=== PATIENT | male | born 1945 | race American Indian/Alaskan Native ===

== ENCOUNTER 2016-07-19 08:31 | Inpatient (IN) | payer MEDICARE ==
[2016-07-19] MEDS ORDERED: ATIVAN IV ONE (09:28)
[2016-07-19] MEDS ORDERED: KEPPRA 1,000 MG/NS 0.75% 100ML 1,000 MG/100 ML BAG IV ONE (09:30)
[2016-07-19 09:47] LABS: Basophils % (Auto) 0.6 % (0.0-1.8); Eosinophils % (Auto) 0.8 % (0.0-4.3); Hematocrit 49.5 % (35.5-45.6); Hemoglobin 15.9 gm/dl (11.8-15.2); Mean Corpuscular HGB Conc 32 % (32-34); Mean Corpuscular Hemoglobin 29 pg (28-32); Mean Corpuscular Volume 91 fl (84-94); Platelet Count 130 K/mm3 (140-440); Red Blood Count 5.43 M/mm3 (3.65-5.03); Red Cell Distribution Width 18.9 % (13.2-15.2); White Blood Count 7.2 K/mm3 (4.5-11.0)
[2016-07-19 09:50] LABS: Alanine Aminotransferase 94 units/L (7-56); Albumin 4.2 g/dL (3.9-5); Alkaline Phosphatase 96 units/L (35-129); Bilirubin,Total 0.9 mg/dL (0.1-1.2); Total Protein 8.3 g/dL (6.3-8.2)
[2016-07-19 09:57] LABS: INR 0.99 (0.87-1.13)
[2016-07-19 09:58] LABS: Partial Thromboplastin Time 24.7 Sec. (24.2-36.6)
--- NOTE | 2016-07-19 09:59 | Cat Scan Report ---
CT HEAD WITHOUT CONTRAST: 07/19/16 CLINICAL: Seizure.. TECHNIQUE: 5-mm and 2.5-mm noncontrast scans. COMPARISON:04/22/16 FINDINGS: The ventricles and sulci are slightly large for age but are unchanged compared to the prior exam. No abnormal density. No mass or mass effect. No hemorrhage, edema or extra-axial collection. The sinuses are clear. Normal orbits and soft tissues. The calvarium and skull base are intact. IMPRESSION: Mild global cortical atrophy. No acute change. Resolution of bilateral maxillary sinusitis since the previous exam.
[2016-07-19] MEDS ORDERED: VITAMIN B-1 PO SCH (10:00)
[2016-07-19 10:06] LABS: Anion Gap 27 mmol/L; Blood Urea Nitrogen 11 mg/dL (9-20); Calcium 9.7 mg/dL (8.4-10.2); Carbon Dioxide 18 mmol/L (22-30); Chloride 99.5 mmol/L (98-107); Glucose 77 mg/dL (75-100); Potassium 4.1 mmol/L (3.6-5.0); Sodium 140 mmol/L (137-145)
--- NOTE | 2016-07-19 10:26 | XRay Report ---
AP CHEST : 07/19/16 08:31:00 CLINICAL: Hypertension. COMPARISON:02/26/16 FINDINGS: Normal heart and pulmonary vessels. The lungs are hyperexpanded and hyperlucent. The bones and soft tissues are unremarkable. IMPRESSION: COPD. No CHF or pneumonia.
[2016-07-19] MEDS ORDERED: VITAMIN B-1 100 MG, FOLVITE 1 MG, INFUVITE 10 ML in NACL 0.9% 1000 ML 1,000 ML IV ONE ×2 (11:00→16:55)
--- NOTE | 2016-07-19 11:45 | Emergency Department Report ---
ED General Adult HPI - General Chief complaint: Seizure Stated complaint: SEIZURE Source: patient, EMS Mode of arrival: Ambulatory Limitations: No Limitations - History of Present Illness Initial comments: The patient had 2 seizures prior to arrival today. He denies any injury to his tongue head neck or elsewhere. Indeed he states he has never injured his head. He admits that he stopped drinking 4-5 days ago. He also admits that he is tremulous. He further states that he has had seizures in the past due to discontinuance of alcohol. He also is on Keppra. It is uncertain as to the nature of his seizure sorter. He is taking Xarelto for atrial fibrillation. He would appear to be in extreme fall risk for anticoagulation therapy. In any case he presents to the emergency department for evaluation. He is planning of any symptoms at the time of my encounter. -: Gradual Severity scale (0 -10): 0 Improves with: none Worsens with: none Associated Symptoms: denies other symptoms - Related Data Home Medications Medication Instructions Recorded Confirmed Last Taken Folic Acid [Folvite] 1 mg PO QDAY 12/25/14 07/19/16 05/27/15 Thiamine 1 mg PO DAILY 12/23/15 07/19/16 Unknown levETIRAcetam [Keppra TAB] 500 mg PO BID 07/19/16 07/19/16 Unknown Previous Rx's Medication Instructions Recorded Last Taken Type Ferrous Fumarate [Hemocyte] 324 mg PO BID #60 tablet 12/29/15 Unknown Rx Flecainide [Tambocor] 50 mg PO Q12HR 30 Days 02/27/16 Unknown Rx Metoprolol Xl [Metoprolol 50 mg PO QDAY 30 Days 02/27/16 Unknown Rx SUCCINATE ER TAB] Rivaroxaban [Xarelto] 20 mg PO QDDIAB #30 tablet 02/27/16 Unknown Rx Allergies Allergy/AdvReac Type Severity Reaction Status Date / Time No Known Allergies Allergy Verified 05/28/15 10:43 ED Review of Systems ROS: Stated complaint: SEIZURE Other details as noted in HPI Constitutional: denies: chills, fever Eyes: denies: eye pain, eye discharge, vision change ENT: denies: ear pain, throat pain Respiratory: denies: cough, shortness of breath, wheezing Cardiovascular: denies: chest pain, palpitations Endocrine: no symptoms reported Gastrointestinal: denies: abdominal pain, nausea, diarrhea Genitourinary: denies: urgency, dysuria Musculoskeletal: denies: back pain, joint swelling, arthralgia Skin: denies: rash, lesions Neurological: as per HPI. denies: headache, weakness, paresthesias Psychiatric: other (somewhat tremulous). denies: anxiety, depression Hematological/Lymphatic: denies: easy bleeding, easy bruising ED Past Medical Hx - Past Medical History Previous Medical History?: Yes Hx Hypertension: Yes Hx Liver Disease: Yes Hx Arthritis: Yes Hx Seizures: Yes Hx Kidney Stones: Yes Hx Asthma: Yes Hx COPD: Yes Hx HIV: No Additional medical history: enlarged heart. - Surgical History Past Surgical History?: Yes Hx Appendectomy: Yes - Social History Smoking Status: Current Every Day Smoker Substance Use Type: Alcohol, Marijuana - Medications Home Medications: Home Medications Medication Instructions Recorded Confirmed Last Taken Type Folic Acid [Folvite] 1 mg PO QDAY 12/25/14 07/19/16 05/27/15 History Thiamine 1 mg PO DAILY 12/23/15 07/19/16 Unknown History Ferrous Fumarate [Hemocyte] 324 mg PO BID #60 tablet 12/29/15 07/19/16 Unknown Rx Flecainide [Tambocor] 50 mg PO Q12HR 30 Days 02/27/16 07/19/16 Unknown Rx Metoprolol Xl [Metoprolol 50 mg PO QDAY 30 Days 02/27/16 07/19/16 Unknown Rx SUCCINATE ER TAB] Rivaroxaban [Xarelto] 20 mg PO QDDIAB #30 tablet 02/27/16 07/19/16 Unknown Rx levETIRAcetam [Keppra TAB] 500 mg PO BID 07/19/16 07/19/16 Unknown History ED Physical Exam - General Limitations: No Limitations General appearance: alert, in no apparent distress - Head Head exam: Present: normocephalic, other (healed old scalp lacerations noted) - Eye Eye exam: Present: normal appearance, PERRL, EOMI. Absent: scleral icterus - ENT ENT exam: Present: mucous membranes moist, other (stung injury and tongue fasciculations noted) - Neck Neck exam: Present: normal inspection. Absent: tenderness, meningismus - Respiratory Respiratory exam: Present: normal lung sounds bilaterally. Absent: respiratory distress - Cardiovascular Cardiovascular Exam: Present: regular rate, normal rhythm. Absent: systolic murmur, diastolic murmur, rubs, gallop - GI/Abdominal GI/Abdominal exam: Present: soft, normal bowel sounds. Absent: distended, tenderness, guarding, rebound, rigid - Rectal Rectal exam: Present: deferred - Extremities Exam Extremities exam: Present: normal inspection - Back Exam Back exam: Present: normal inspection - Neurological Exam Neurological exam: Present: alert, oriented X3, CN II-XII intact. Absent: motor sensory deficit - Psychiatric Psychiatric exam: Present: normal affect, anxious - Skin Skin exam: Present: warm, dry, intact, normal color. Absent: rash ED Course Vital Signs 07/19/16 07/19/16 07/19/16 08:31 08:41 08:43 Temperature 98.6 F Pulse Rate 91 H 88 Respiratory 13 13 18 Rate Blood Pressure 161/95 165/95 Blood Pressure 165/95 [Left] O2 Sat by Pulse 98 99 Oximetry 07/19/16 07/19/16 07/19/16 08:51 09:01 09:10 Temperature Pulse Rate 88 90 Respiratory 13 12 20 Rate Blood Pressure 161/95 161/95 Blood Pressure [Left] O2 Sat by Pulse 98 98 97 Oximetry 07/19/16 07/19/16 07/19/16 09:11 09:21 09:31 Temperature Pulse Rate 93 H 88 85 Respiratory 10 L 12 14 Rate Blood Pressure 161/95 161/95 161/95 Blood Pressure [Left] O2 Sat by Pulse 96 99 99 Oximetry 07/19/16 07/19/16 07/19/16 09:45 09:51 10:00 Temperature Pulse Rate 80 83 78 Respiratory 17 16 16 Rate Blood Pressure 161/95 161/95 162/86 Blood Pressure [Left] O2 Sat by Pulse 98 98 96 Oximetry 07/19/16 07/19/16 10:11 10:21 Temperature Pulse Rate 77 78 Respiratory 16 14 Rate Blood Pressure 162/86 162/86 Blood Pressure [Left] O2 Sat by Pulse 97 98 Oximetry - Reevaluation(s) Reevaluation #1: She was given Ativan and Keppra. CT of his head was normal. Banana bag was issued. Case was discussed with Dr. Montgomery who will be admitting him to the hospitalist service. 07/19/16 11:45 Reevaluation #2: Judging from the patient's coagulation profile I strongly doubt that he is compliant with his Xarelto. 07/19/16 11:46 07/19/16 17:09 The case was discussed with Dr. Montgomery who is admitted the patient to the hospitalist service. He is in normal sinus rhythm. I don't think it's very judicious to continue this patient's anticoagulation with his multiple risk factors for head trauma. ED Medical Decision Making - Lab Data Result diagrams: 07/19/16 08:52 07/19/16 08:53 Laboratory Results - last 24 hr 07/19/16 07/19/16 07/19/16 08:52 08:53 08:54 WBC 7.2 RBC 5.43 H Hgb 15.9 H Hct 49.5 H MCV 91 MCH 29 MCHC 32 RDW 18.9 H Plt Count 130 L Lymph % (Auto) 8.3 L Garrett % (Auto) 4.4 Eos % (Auto) 0.8 Baso % (Auto) 0.6 Lymph # 0.6 L Garrett # 0.3 Eos # 0.1 Baso # 0.0 Seg Neutrophils % 85.9 H Seg Neutrophils # 6.2 PT 13.0 INR 0.99 APTT 24.7 Sodium 140 Potassium 4.1 Chloride 99.5 Carbon Dioxide 18 L Anion Gap 27 BUN 11 Creatinine 1.0 Estimated GFR > 60 BUN/Creatinine Ratio 11.00 Glucose 77 Calcium 9.7 Magnesium Total Bilirubin 0.9 AST 180 H ALT 94 H Alkaline Phosphatase 96 Ammonia Total Protein 8.3 H Albumin 4.2 Albumin/Globulin Ratio 1.0 Plasma/Serum Alcohol 07/19/16 07/19/16 07/19/16 09:09 09:17 Unknown WBC RBC Hgb Hct MCV MCH MCHC RDW Plt Count Lymph % (Auto) Garrett % (Auto) Eos % (Auto) Baso % (Auto) Lymph # Garrett # Eos # Baso # Seg Neutrophils % Seg Neutrophils # PT INR APTT Sodium Potassium Chloride Carbon Dioxide Anion Gap BUN Creatinine Estimated GFR BUN/Creatinine Ratio Glucose Calcium Magnesium 2.0 Total Bilirubin AST ALT Alkaline Phosphatase Ammonia 42.0 Total Protein Albumin Albumin/Globulin Ratio Plasma/Serum Alcohol 0.02 - EKG Data -: EKG Interpreted by Ak EKG shows normal: sinus rhythm, axis, intervals, QRS complexes, ST-T waves Rate: normal - EKG Data Interpretation: normal EKG - Radiology Data Radiology results: report reviewed interpreted by me: CT the head showed no acute process. Chest x-ray showed no acute process. Critical care attestation.: If time is entered above; I have spent that time in minutes in the direct care of this critically ill patient, excluding procedure time. ED Disposition Clinical Impression: Chronic alcoholic liver disease Alcohol withdrawal Qualifiers: Complication of substance-induced condition: with unspecified complication Qualified Code(s): F10.239 - Alcohol dependence with withdrawal, unspecified Withdrawal seizures Qualifiers: Complication of substance-induced condition: with unspecified complication Qualified Code(s): F19.239 - Other psychoactive substance dependence with withdrawal, unspecified Disposition: OP ADMITTED IP TO THIS HOSP Is pt being admited?: Yes Does the pt Need Aspirin: Yes Condition: Stable Time of Disposition: 17:11
--- NOTE | 2016-07-19 14:57 | History and Physical Report ---
History of Present Illness Date of examination: 07/19/16 Date of admission: 07/19/16 13:30 Chief complaint: Tremulousness for 2 days Seizures prior to arrival in ER x2 History of present illness: 70 y/o male comes in for seizures and feeling weak .Had 2 generialized seizures prior to coming here.Also tremulousness for 2 days.Stopped Alcohol.Had a tendency to frequent falls.No fever chills. Past History Past Medical History: atrial fib, arrhythmia, hypertension, seizures, other ( Etoh dependence) Medications and Allergies Allergies Allergy/AdvReac Type Severity Reaction Status Date / Time No Known Allergies Allergy Verified 05/28/15 10:43 Home Medications Medication Instructions Recorded Confirmed Last Taken Type Folic Acid [Folvite] 1 mg PO QDAY 12/25/14 07/19/16 05/27/15 History Thiamine 1 mg PO DAILY 12/23/15 07/19/16 Unknown History Ferrous Fumarate [Hemocyte] 324 mg PO BID #60 tablet 12/29/15 07/19/16 Unknown Rx Flecainide [Tambocor] 50 mg PO Q12HR 30 Days 02/27/16 07/19/16 Unknown Rx Metoprolol Xl [Metoprolol 50 mg PO QDAY 30 Days 02/27/16 07/19/16 Unknown Rx SUCCINATE ER TAB] Rivaroxaban [Xarelto] 20 mg PO QDDIAB #30 tablet 02/27/16 07/19/16 Unknown Rx levETIRAcetam [Keppra TAB] 500 mg PO BID 07/19/16 07/19/16 Unknown History Active Meds: Active Medications Thiamine HCl 100 mg/ Folic Acid 1 mg/ Multivitamins/Minerals 10 ml/ Sodium Chloride 1,011.2 mls @ 250 mls/hr IV ONCE.ED ONE Stop: 07/19/16 15:02 Last Admin: 07/19/16 11:30 Dose: 250 mls/hr Review of Systems All systems: negative Constitutional: lethargy Neurological: seizures, tremors (Tremulousness), change in mentation (Resolved) Exam - Constitutional Vitals: Temp Pulse Resp BP Pulse Ox 98.6 F 78 14 162/86 98 07/19/16 08:43 07/19/16 10:21 07/19/16 10:21 07/19/16 10:21 07/19/16 10:21 General appearance: Present: no acute distress, well-nourished - EENT Eyes: Present: PERRL ENT: hearing intact, clear oral mucosa - Neck Neck: Present: supple, normal ROM - Respiratory Respiratory effort: normal Respiratory: bilateral: CTA - Cardiovascular Heart Sounds: Present: S1 & S2. Absent: rub, click - Extremities Extremities: pulses symmetrical, No edema Peripheral Pulses: within normal limits - Abdominal General gastrointestinal: Present: soft, non-tender, non-distended, normal bowel sounds Male genitourinary: Present: normal - Integumentary Integumentary: Present: clear, warm, dry - Musculoskeletal Musculoskeletal: gait normal, strength equal bilaterally - Psychiatric Psychiatric: appropriate mood/affect, agitated - Neurologic Neurologic: CNII-XII intact, moves all extremities, other (Tremulousness) - Allied Health Allied health notes reviewed: nursing Results - Labs CBC & Chem 7: 07/19/16 08:52 07/19/16 08:53 Labs: Short CBC 07/19/16 Range/Units 08:52 WBC 7.2 (4.5-11.0) K/mm3 Hgb 15.9 H (11.8-15.2) gm/dl Hct 49.5 H (35.5-45.6) % Plt Count 130 L (140-440) K/mm3 BMP 07/19/16 08:53 Sodium 140 Potassium 4.1 Chloride 99.5 Carbon Dioxide 18 L BUN 11 Creatinine 1.0 Glucose 77 Calcium 9.7 Liver Function 07/19/16 Range/Units 08:53 Total Bilirubin 0.9 (0.1-1.2) mg/dL AST 180 H (5-40) units/L ALT 94 H (7-56) units/L Alkaline Phosphatase 96 (35-129) units/L Albumin 4.2 (3.9-5) g/dL Assessment and Plan - Patient Problems (1) Encephalopathy acute Current Visit: Yes Status: Acute Plan to address problem: Sec to ETOH withdrawal (2) Withdrawal seizures Current Visit: Yes Status: Acute Qualifiers: Complication of substance-induced condition: with unspecified complication Qualified Code(s): F19.239 - Other psychoactive substance dependence with withdrawal, unspecified; R56.9 - Unspecified convulsions Plan to address problem: IV keppra for now and transition to Po Keppra from tomorrow AM (3) Chronic alcoholic liver disease Current Visit: Yes Status: Chronic Plan to address problem: Patient counselled about elevated Liver enzymes. And the need to stop ETOH. (4) Atrial fibrillation Current Visit: Yes Status: Chronic Qualifiers: Atrial fibrillation type: chronic Qualified Code(s): I48.2 - Chronic atrial fibrillation Plan to address problem: Cont Flecainide.Cardiology consulted regarding continuing Xarelto in view of seizures and frequent falls. (5) Hypertension Current Visit: No Status: Chronic Qualifiers: Hypertension type: essential hypertension Qualified Code(s): I10 - Essential (primary) hypertension Plan to address problem: cont metoprolol 50 mg po q 12 h (6) Delirium tremens Current Visit: Yes Status: Acute Plan to address problem: Cont CIWA protocol (7) DVT prophylaxis Current Visit: Yes Status: Acute Plan to address problem: lovenox 40 mg SQ qd
[2016-07-19] MEDS ORDERED: THIAMINE PO SCH (16:45)
[2016-07-19] MEDS ORDERED: ATIVAN PO PRN ×2 (16:52)
[2016-07-19] MEDS ORDERED: HALDOL IV PRN (16:52)
[2016-07-19] MEDS ORDERED: ATIVAN IV PRN ×2 (16:52)
[2016-07-19 18:19] LABS: Albumin 3.6 g/dL (3.9-5); Calcium 8.9 mg/dL (8.4-10.2); Phosphorous 2.8 mg/dL (2.5-4.5)
[2016-07-19] MEDS: XARELTO PO SCH (20:40)
[2016-07-19] MEDS: BABY ASPIRIN PO SCH (20:40)
[2016-07-19] MEDS: FOLVITE PO SCH (20:40)
[2016-07-19] MEDS ORDERED: KEPPRA 750 MG in D5W 100 ML IV SCH (22:00)
[2016-07-19] MEDS ORDERED: LOVENOX SUB-Q SCH (22:00)
[2016-07-19] MEDS: TAMBOCOR PO SCH (23:55)
--- NOTE | 2016-07-20 01:26 | Admit Criteria Form ---
Admission Criteria Documentation: ALCOHOL AND PSYCHOACTIVE SUBSTANCE WITHDRAWAL Clinical Indications for Inpatient Care (Place ' X' for any and all applicable criteria): Ongoing inpatient care may be indicated for substance withdrawal[B][C] with ANY ONE of the following(1)(2)(3)(4)(21): [ ]I. Delirium due to alcohol or sedative[D] withdrawal is present. [ ]II. Marked signs of withdrawal are present as indicated by ANY ONE of the following(15)(22)(23) [ ]a) Heart rate greater than 120 beats per minute is present. [ ]b) Severe vomiting is present (eg, precludes maintenance of oral hydration). [ ]c) Grossly visible tremor is present. [ ]d) Profuse perspiration is present. [ ]e) Temperature greater than 101 degrees F (38.3 degrees C) is present. [ ]f) Other signs of severe withdrawal are present (eg, Altered mental status ) [ ]g) Severe withdrawal identified by standardized assessment score[A] [ ]III. Signs of withdrawal that require continued inpatient treatment as indicated by ANY ONE of the following(15)(22)(23): [ ]a) Inadequate response to pharmacotherapy (eg, benzodiazepines) [ ]b) Outpatient or lower level of care is not feasible or appropriate (eg, unavailable or inappropriate to patient condition or treatment history). [X ]IV. Withdrawal signs with high-risk indicator are present as manifested by ALL of the following[A](15)(22)(23) [ X]a) Signs of withdrawal are present as indicated by ANY ONE of the following: [ ]i. Tachycardia is present. [ ]ii. Nausea or vomiting is present. [ X]iii. Tremor is present. [ ]iv. Increased perspiration is present. [ ]v. Other signs of withdrawal are present. [ ]vi. Withdrawal identified by standardized assessment score [A] [ X]b) Elevated risk due to historical or comorbid factor is present as indicated by ANY ONE of the following: [ ]i. History of delirium due to withdrawal is present. [ ]ii. History of seizures due to withdrawal is present.[E] [ X]iii. Intrinsic seizure disorder (epilepsy) is present. [ ]iv. Patient is . [ ]v. Other significant medical history (eg, severe cardiac disease) is present, which is assessed to be at risk for destabilization due to withdrawal. [ ]V. Serious electrolyte abnormalities (eg, hyponatremia, hypokalemia, hypophosphatemia) requiring correction performable only in inpatient setting(6)(25) [ ]. Severe hypoglycemia requiring glucose infusions performable only in inpatient setting(6) [ ]VII. Drug toxicity or instability, such as Altered mental status, respiratory depression, or arrhythmias, that requires inpatient care [ ]VIII. Danger judged unmanageable at lower level of care because of ANY ONE of the following [ ]a) Danger to self [ ]b) Danger to others [ ]c) Grave disability (eg, inability to perform self-care necessary at lower level of care) The original [facility] Care [facility] content created by [facility] has been revised. The portions of the content which have been revised are identified through the use of italic text or in bold. [facility] has neither reviewed nor approved the modified material. All other unmodified content is copyright [facility]. Please see references footnoted in the [facility] Admission Criteria Met: Yes
[2016-07-20] MEDS ORDERED: TYLENOL PO PRN (01:33)
[2016-07-20] MEDS: XARELTO PO SCH (08:31)
[2016-07-20 08:32] LABS: Alanine Aminotransferase 67 units/L (7-56); Albumin 4.1 g/dL (3.9-5); Albumin/Globulin Ratio 1.1 %; Alkaline Phosphatase 92 units/L (35-129); Anion Gap 26 mmol/L; BUN/Creatinine Ratio 13.75; Bilirubin,Total 1.9 mg/dL (0.1-1.2); Blood Urea Nitrogen 11 mg/dL (9-20); Calcium 9.4 mg/dL (8.4-10.2); Carbon Dioxide 20 mmol/L (22-30); Chloride 98.9 mmol/L (98-107); Glucose 72 mg/dL (75-100); Potassium 3.8 mmol/L (3.6-5.0); Sodium 141 mmol/L (137-145); Total Protein 7.7 g/dL (6.3-8.2)
[2016-07-20] MEDS: KEPPRA PO SCH ×2 (08:32→11:18)
[2016-07-20 08:34] LABS: Basophils % (Auto) 0.6 % (0.0-1.8); Eosinophils % (Auto) 0.5 % (0.0-4.3); Hematocrit 44.5 % (35.5-45.6); Hemoglobin 14.4 gm/dl (11.8-15.2); Mean Corpuscular HGB Conc 32 % (32-34); Mean Corpuscular Hemoglobin 29 pg (28-32); Mean Corpuscular Volume 91 fl (84-94); Platelet Count 113 K/mm3 (140-440); Red Cell Distribution Width 18.9 % (13.2-15.2); White Blood Count 6.6 K/mm3 (4.5-11.0)
[2016-07-20] MEDS: TAMBOCOR PO SCH (11:14)
--- NOTE | 2016-07-20 11:14 | Consultation ---
History of Present Illness Consult date: 07/20/16 Consult reason: atrial fibrillation Past History Past Medical History: atrial fib, arrhythmia, hypertension, seizures, other ( Etoh dependence) Medications and Allergies Allergies Allergy/AdvReac Type Severity Reaction Status Date / Time No Known Allergies Allergy Verified 05/28/15 10:43 Home Medications Medication Instructions Recorded Confirmed Last Taken Type Folic Acid [Folvite] 1 mg PO QDAY 12/25/14 07/19/16 05/27/15 History Thiamine 1 mg PO DAILY 12/23/15 07/19/16 Unknown History Ferrous Fumarate [Hemocyte] 324 mg PO BID #60 tablet 12/29/15 07/19/16 Unknown Rx Flecainide [Tambocor] 50 mg PO Q12HR 30 Days 02/27/16 07/19/16 Unknown Rx Metoprolol Xl [Metoprolol 50 mg PO QDAY 30 Days 02/27/16 07/19/16 Unknown Rx SUCCINATE ER TAB] Rivaroxaban [Xarelto] 20 mg PO QDDIAB #30 tablet 02/27/16 07/19/16 Unknown Rx levETIRAcetam [Keppra TAB] 500 mg PO BID 07/19/16 07/19/16 Unknown History Active Meds: Active Medications Acetaminophen (Tylenol) 650 mg PO Q4H PRN PRN Reason: Pain, Mild (1-3) Last Admin: 07/20/16 08:31 Dose: 650 mg Aspirin (Baby Aspirin) 162 mg PO QDAY [facility] Last Admin: 07/19/16 20:40 Dose: 162 mg Enoxaparin Sodium (Lovenox) 40 mg SUB-Q QDAY@2200 [facility] Last Admin: 07/19/16 23:18 Dose: 40 mg Flecainide Acetate (Tambocor) 50 mg PO Q12HR [facility] Last Admin: 07/19/16 23:55 Dose: 50 mg Folic Acid (Folvite) 1 mg PO QDAY [facility] Last Admin: 07/19/16 20:40 Dose: 1 mg Haloperidol Lactate (Haldol) 5 mg IV Q1H PRN PRN Reason: Unrespon. to mult. doses BZD's Levetiracetam (Keppra) 500 mg PO BID [facility] Last Admin: 07/20/16 08:32 Dose: 500 mg Lorazepam (Ativan) 2 mg IV Q1H PRN PRN Reason: CIWA-Ar 8-15 Lorazepam (Ativan) 2 mg PO Q1H PRN PRN Reason: CIWA-Ar 8-15 Last Admin: 07/20/16 08:32 Dose: 2 mg Lorazepam (Ativan) 4 mg IV Q1H PRN PRN Reason: CIWA-Ar 16-25 Lorazepam (Ativan) 4 mg PO Q1H PRN PRN Reason: CIWA-Ar 16-25 Last Admin: 07/19/16 23:14 Dose: 4 mg Metoprolol Succinate (Toprol Xl) 50 mg PO QDAY [facility] Thiamine HCl (Vitamin B-1) 100 mg PO QDAY [facility] Physical Examination Vital Signs Resp 13 07/19/16 08:31 Results 07/20/16 07:42 07/20/16 07:42 Cardiac Enzymes 07/19/16 07/19/16 07/19/16 Range/Units 17:47 17:47 Unknown WBC (4.5-11.0) K/mm3 RBC (3.65-5.03) M/mm3 Hgb (11.8-15.2) gm/dl Hct (35.5-45.6) % MCV (84-94) fl MCH (28-32) pg MCHC (32-34) % RDW (13.2-15.2) % Plt Count (140-440) K/mm3 Lymph % (Auto) (13.4-35.0) % [place] % (Auto) (0.0-7.3) % Eos % (Auto) (0.0-4.3) % Baso % (Auto) (0.0-1.8) % Lymph # (1.2-5.4) K/mm3 [place] # (0.0-0.8) K/mm3 Eos # (0.0-0.4) K/mm3 Baso # (0.0-0.1) K/mm3 Seg Neutrophils % (40.0-70.0) % Seg Neutrophils # (1.8-7.7) K/mm3 Sodium (137-145) mmol/L Potassium (3.6-5.0) mmol/L Chloride (98-107) mmol/L Carbon Dioxide (22-30) mmol/L Anion Gap mmol/L BUN (9-20) mg/dL Creatinine (0.8-1.5) mg/dL Estimated GFR ml/min BUN/Creatinine Ratio % Glucose (75-100) mg/dL Calcium 8.9 (8.4-10.2) mg/dL Phosphorus 2.8 (2.5-4.5) mg/dL Magnesium 2.0 (1.7-2.3) mg/dL Total Bilirubin (0.1-1.2) mg/dL AST (5-40) units/L ALT (7-56) units/L Alkaline Phosphatase (35-129) units/L Ammonia 29.0 42.0 (25-60) umol/L Total Protein (6.3-8.2) g/dL Albumin 3.6 L (3.9-5) g/dL Albumin/Globulin Ratio % 07/20/16 07/20/16 Range/Units 07:42 07:42 WBC 6.6 (4.5-11.0) K/mm3 RBC 4.90 (3.65-5.03) M/mm3 Hgb 14.4 (11.8-15.2) gm/dl Hct 44.5 (35.5-45.6) % MCV 91 (84-94) fl MCH 29 (28-32) pg MCHC 32 (32-34) % RDW 18.9 H (13.2-15.2) % Plt Count 113 L (140-440) K/mm3 Lymph % (Auto) 16.9 (13.4-35.0) % [place] % (Auto) 7.8 H (0.0-7.3) % Eos % (Auto) 0.5 (0.0-4.3) % Baso % (Auto) 0.6 (0.0-1.8) % Lymph # 1.1 L (1.2-5.4) K/mm3 [place] # 0.5 (0.0-0.8) K/mm3 Eos # 0.0 (0.0-0.4) K/mm3 Baso # 0.0 (0.0-0.1) K/mm3 Seg Neutrophils % 74.2 H (40.0-70.0) % Seg Neutrophils # 4.9 (1.8-7.7) K/mm3 Sodium 141 (137-145) mmol/L Potassium 3.8 (3.6-5.0) mmol/L Chloride 98.9 (98-107) mmol/L Carbon Dioxide 20 L (22-30) mmol/L Anion Gap 26 mmol/L BUN 11 (9-20) mg/dL Creatinine 0.8 (0.8-1.5) mg/dL Estimated GFR > 60 ml/min BUN/Creatinine Ratio 13.75 % Glucose 72 L (75-100) mg/dL Calcium 9.4 (8.4-10.2) mg/dL Phosphorus (2.5-4.5) mg/dL Magnesium (1.7-2.3) mg/dL Total Bilirubin 1.9 H (0.1-1.2) mg/dL AST 95 H (5-40) units/L ALT 67 H (7-56) units/L Alkaline Phosphatase 92 (35-129) units/L Ammonia (25-60) umol/L Total Protein 7.7 (6.3-8.2) g/dL Albumin 4.1 (3.9-5) g/dL Albumin/Globulin Ratio 1.1 % CBC 07/20/16 Range/Units 07:42 WBC 6.6 (4.5-11.0) K/mm3 RBC 4.90 (3.65-5.03) M/mm3 Hgb 14.4 (11.8-15.2) gm/dl Hct 44.5 (35.5-45.6) % Plt Count 113 L (140-440) K/mm3 Lymph # 1.1 L (1.2-5.4) K/mm3 [place] # 0.5 (0.0-0.8) K/mm3 Eos # 0.0 (0.0-0.4) K/mm3 Baso # 0.0 (0.0-0.1) K/mm3 Comprehensive Metabolic Panel 07/19/16 07/20/16 Range/Units 17:47 07:42 Sodium 141 (137-145) mmol/L Potassium 3.8 (3.6-5.0) mmol/L Chloride 98.9 (98-107) mmol/L Carbon Dioxide 20 L (22-30) mmol/L BUN 11 (9-20) mg/dL Creatinine 0.8 (0.8-1.5) mg/dL Glucose 72 L (75-100) mg/dL Calcium 8.9 9.4 (8.4-10.2) mg/dL AST 95 H (5-40) units/L ALT 67 H (7-56) units/L Alkaline Phosphatase 92 (35-129) units/L Total Protein 7.7 (6.3-8.2) g/dL Albumin 3.6 L 4.1 (3.9-5) g/dL Assessment and Plan given frequent falls, seizure d/o, ecephalopthy, would discontinue halfway systemic anticoagulation recheck tte cont flecainide unless structural abnormalities noted on tte - Patient Problems (1) Alcohol withdrawal Current Visit: Yes Status: Acute Qualifiers: Complication of substance-induced condition: with unspecified complication Qualified Code(s): F10.239 - Alcohol dependence with withdrawal, unspecified (2) DVT prophylaxis Current Visit: Yes Status: Acute (3) Delirium tremens Current Visit: Yes Status: Acute (4) Encephalopathy acute Current Visit: Yes Status: Acute (5) Withdrawal seizures Current Visit: Yes Status: Acute Qualifiers: Complication of substance-induced condition: with unspecified complication Qualified Code(s): F19.239 - Other psychoactive substance dependence with withdrawal, unspecified; R56.9 - Unspecified convulsions (6) Atrial fibrillation Current Visit: Yes Status: Chronic Qualifiers: Atrial fibrillation type: chronic Qualified Code(s): I48.2 - Chronic atrial fibrillation (7) Chronic alcoholic liver disease Current Visit: Yes Status: Chronic (8) Acute on chronic renal failure Current Visit: No Status: Acute (9) Acute renal failure (ARF) Current Visit: No Status: Acute Qualifiers: Acute renal failure type: unspecified Qualified Code(s): N17.9 - Acute kidney failure, unspecified (10) Altered mental status Current Visit: No Status: Acute Qualifiers: Altered mental status type: unspecified Coma depth: C Coma timing: C Qualified Code(s): R41.82 - Altered mental status, unspecified (11) Atrial fibrillation with rapid ventricular response Current Visit: No Status: Acute (12) DVT prophylaxis Current Visit: No Status: Acute (13) Leukocytosis Current Visit: No Status: Acute Qualifiers: Leukocytosis type: unspecified Qualified Code(s): D72.829 - Elevated white blood cell count, unspecified (14) Seizure Current Visit: No Status: Acute (15) Thrombocytopenia Current Visit: No Status: Acute (16) Hypertension Current Visit: No Status: Chronic Qualifiers: Hypertension type: essential hypertension Qualified Code(s): I10 - Essential (primary) hypertension
[2016-07-20] MEDS: BABY ASPIRIN PO SCH (11:15)
[2016-07-20] MEDS: TOPROL XL PO SCH ×2 (11:16→11:22)
[2016-07-20] MEDS: FOLVITE PO SCH (11:16)
--- NOTE | 2016-07-20 11:56 | Discharge Summary ---
Providers - Providers Date of Admission: 07/19/16 13:30 Date of discharge: 07/20/16 Attending physician: FRANKLIN CAR MD 07/19/16 16:57 Consult to Physician [CONS] Routine Consulting Provider: RUMA WALKER Reason For Exam: Arrhythmias-need for xarelto-Also seizures and fal Place consult to:: CARDIOLOGY Notified:: Y Was contact made?: Yes If yes, spoke with:: DR Kristina WALKER Time called:: 18:20 Primary care physician: PLAYBACK OPERATOR Hospitalization Reason for admission: seizure Condition: Stable Hospital course: Patient is a 70-year-old male who unfortunately has a history of atrial fibrillation which was discontinued because somehow continue to take it. Also multiple other medical histories as noted below who presents to the ER with 2 seizure episode and postseizure encephalopathy.. He continues to drink alcohol despite multiple warnings to quit drinking. He was a mild withdrawal on admission and today is much improved. Stable for discharge. I have again instructed him and need to avoid alcohol use and possibly a role in AA for which the patient verbalized understanding. We'll again discontinue his overall to have discussed the risks with him he is too high risk for fall and head trauma while on anticoagulation. He's been started on Keppra I will continue this. He states to me that he still has some medications at home but initially had informed likely that he ran out of his meds. We'll renewed his medications at this time. He has been ambulating back and forth to the bathroom unassisted. Studies diagnosis (1) Encephalopathy acute Sec to ETOH withdrawal (2) Withdrawal seizures (3) Chronic alcoholic liver disease (4) Atrial fibrillation (5) Hypertension (6) Delirium tremens Disposition: DC/TX HOME UNDER HOME HEALTH Time spent for discharge: 35 Core Measure Documentation - Palliative Care Palliative Care/ Comfort Measures: Not Applicable - Core Measures Any of the following diagnoses?: none - VTE Discharge Requirements Deep Vein Thrombosis/Pulmonary Embolism Present on Admission: No Exam - Physical Exam Narrative exam: VITAL SIGNS: Reviewed. GENERAL: The patient appeared well nourished and normally developed. Vital signs as documented. HEAD: No signs of head trauma. EYES: Pupils are equal. Extraocular motions intact. EARS: Hearing grossly intact. MOUTH: Oropharynx is normal. NECK: No adenopathy, no JVD. CHEST: Chest with clear breath sounds bilaterally. No wheezes, rales, or rhonchi. CARDIAC: Regular rate and rhythm. S1 and S2, without murmurs, gallops, or rubs. VASCULAR: No Edema. Peripheral pulses normal and equal in all extremities. ABDOMEN: Soft, without detectable tenderness. No sign of distention. No rebound or guarding, and no masses palpated. Bowel Sounds normal. MUSCULOSKELETAL: Good range of motion of all major joints. Extremities without clubbing, cyanosis or edema. NEUROLOGIC EXAM: Alert and oriented x 3. No focal sensory or strength deficits. Speech normal. Follows commands. PSYCHIATRIC: Mood normal. SKIN: No rash or lesions. - Constitutional Vitals: Temp Pulse Resp BP Pulse Ox 98.3 F 72 20 172/87 100 07/20/16 08:51 07/20/16 11:22 07/20/16 08:51 07/20/16 08:51 07/20/16 08:51 Plan Activity: no driving until cleared by PCP (have discussed the [place] driving restriction rules to the patient for 6 months of not driving.), fall precautions Diet: low salt Special Instructions: record daily BP diary, other (must avoid alcohol) Follow up with: PRIMARY CARE, [Primary Care Provider] - 3-5 Days Prescriptions: levETIRAcetam [Keppra TAB] 500 mg PO BID #60 tablet
[2016-07-20 16:24] VITALS: BP 149/92
== END 2016-07-20 16:00 | disposition home health service (06) | DRG 895 ==
LOC: ED 08:31 → 3A 13:30
PROVIDERS: ADMIT Internal Medicine; ATTEND Internal Medicine
PROC: HZ34ZZZ Individual Counseling for Substance Abuse Treatment, Interpersonal (ICD-10-PCS; principal; 2016-07-19)
DX: F10.231 Alcohol dependence with withdrawal delirium (principal); G93.40 Encephalopathy, unspecified; N17.9 Acute kidney failure, unspecified; M19.90 Unspecified osteoarthritis, unspecified site; J45.909 Unspecified asthma, uncomplicated; J44.9 Chronic obstructive pulmonary disease, unspecified; F17.210 Nicotine dependence, cigarettes, uncomplicated; K70.9 Alcoholic liver disease, unspecified; I48.2 Chronic atrial fibrillation; R29.6 Repeated falls; I12.9 Hypertensive chronic kidney disease with stage 1 through stage 4 chronic kidney disease, or unspecified chronic kidney disease; N18.9 Chronic kidney disease, unspecified; D69.6 Thrombocytopenia, unspecified; Z79.01 Long term (current) use of anticoagulants; Z79.899 Other long term (current) drug therapy; Z87.442 Personal history of urinary calculi; F12.90 Cannabis use, unspecified, uncomplicated; Z71.41 Alcohol abuse counseling and surveillance of alcoholic
CPT/HCPCS: 36415; 70450; 71010; 80053; 80177; 80320; 82040; 82140; 82310; 83735; 84100; 85025; 85610; 85730; 93005; 93010; 96365; 96366; 96367; 96375; G0480; J1650; J1953; J2060; J3411; J7030

== ENCOUNTER 2017-03-17 05:10 | Emergency (ER) | payer MEDICARE ==
[2017-03-17] MEDS ORDERED: KEPPRA 1,000 MG/NS 0.75% 100ML 1,000 MG/100 ML BAG IV ONE (07:05)
[2017-03-17] MEDS ORDERED: ATIVAN IV ONE (07:09)
--- NOTE | 2017-03-17 07:15 | Emergency Department Report ---
HPI - General Chief Complaint: Seizure Time Seen by Provider: 03/17/17 07:04 - HPI HPI: Room 4 71 -year-old male presenting with a chief complaint seizure. The patient states she was at home and believes he had a seizure when his family called EMS. Patient currently denies any complaints stating he feels "fine." Patient states he has been compliant with his Keppra. The patient states his last seizure occurred approximately 2-3 months ago. Location: Central nervous system Duration: [see above] Quality: Generalized tonic-clonic Severity: [see above] Modifying factors: [see above] Context: [see above] Mode of transportation: [not driving] ED Past Medical Hx - Past Medical History Previous Medical History?: Yes Hx Hypertension: Yes Hx Liver Disease: Yes Hx Arthritis: Yes Hx Seizures: Yes Hx Kidney Stones: Yes Hx Asthma: Yes Hx COPD: Yes Additional medical history: enlarged heart. - Surgical History Past Surgical History?: Yes Hx Appendectomy: Yes Additional Surgical History: Left upper extremity surgery related to trauma - Family History Family history: no significant - Social History Smoking Status: Current Every Day Smoker (1/2 pack per day) Substance Use Type: Alcohol (occasional) - Medications Home Medications: Home Medications Medication Instructions Recorded Confirmed Last Taken Type levETIRAcetam [Keppra TAB] 750 mg PO BID #60 tablet 12/01/16 Unknown Rx ED Review of Systems ROS: Stated complaint: SEIZURE Other details as noted in HPI Comment: All other systems reviewed and negative Constitutional: denies: chills, fever Eyes: denies: eye pain, eye discharge, vision change ENT: denies: ear pain, throat pain Respiratory: denies: cough, shortness of breath, wheezing Cardiovascular: denies: chest pain, palpitations Endocrine: no symptoms reported Gastrointestinal: denies: abdominal pain, nausea, diarrhea Genitourinary: denies: urgency, dysuria Musculoskeletal: denies: back pain, joint swelling, arthralgia Skin: denies: rash, lesions Neurological: other (seizure) Psychiatric: denies: anxiety, depression Hematological/Lymphatic: denies: easy bleeding, easy bruising Physical Exam - Physical Exam Vital Signs: Vital Signs 03/17/17 03/17/17 03/17/17 05:24 06:10 06:59 Temperature 98.4 F Pulse Rate 85 82 Respiratory 18 20 20 Rate Blood Pressure 144/75 142/79 [Left] O2 Sat by Pulse 97 98 98 Oximetry Physical Exam: GENERAL: The patient is well-developed well-nourished male sitting on stretcher not appearing to be in acute distress. [] HEENT: Normocephalic. Atraumatic. Extraocular motions are intact. Patient has moist mucous membranes. NECK: Supple. No meningitic signs are noted. Trachea midline CHEST/LUNGS: Clear to auscultation. There is no respiratory distress noted. HEART/CARDIOVASCULAR: Regular. There is no tachycardia. There is no gallop rub or murmur. ABDOMEN: Abdomen is soft, nontender. Patient has normal bowel sounds. There is no abdominal distention. SKIN: There is no rash. There is no edema. There is no diaphoresis. NEURO: The patient is awake, alert, and oriented. The patient is cooperative. The patient has no focal neurologic deficits. The patient has normal speech. Cranial nerves II through XII grossly intact MUSCULOSKELETAL:There is no evidence of acute injury. ED Course Vital Signs 03/17/17 03/17/17 03/17/17 05:24 06:10 06:59 Temperature 98.4 F Pulse Rate 85 82 Respiratory 18 20 20 Rate Blood Pressure 144/75 142/79 [Left] O2 Sat by Pulse 97 98 98 Oximetry ED Medical Decision Making - Differential Diagnosis seizure Critical care attestation.: If time is entered above; I have spent that time in minutes in the direct care of this critically ill patient, excluding procedure time. ED Disposition Clinical Impression: Seizure Disposition: DC-01 TO HOME OR SELFCARE Is pt being admited?: No Does the pt Need Aspirin: No Condition: Stable Instructions: Epilepsy (ED) Additional Instructions: Return to the emergency department immediately should you develop worsening symptoms, fever, inability to tolerate food or liquid or any other concerns. Referrals: PRIMARY CARE, [Primary Care Provider] - 3-5 Days Time of Disposition: 07:15
[2017-03-17 11:59] VITALS: BP 138/83
== END 2017-03-17 14:33 | disposition home or self-care (01) ==
LOC: ED 05:10
DX: R56.9 Unspecified convulsions (principal); I10 Essential (primary) hypertension; M19.90 Unspecified osteoarthritis, unspecified site; J44.9 Chronic obstructive pulmonary disease, unspecified; F17.200 Nicotine dependence, unspecified, uncomplicated; Z90.49 Acquired absence of other specified parts of digestive tract
CPT/HCPCS: 82962; 96374; 96375; 99284; J1953; J2060

== ENCOUNTER 2017-04-25 19:17 | Emergency (ER) | payer MEDICARE ==
--- NOTE | 2017-04-25 20:24 | Emergency Department Report ---
HPI - General Chief Complaint: Seizure Time Seen by Provider: 04/25/17 20:04 - HPI HPI: 71-year-old -[place] male who presents to the emergency department by EMS after the patient apparently "fell out." He denies hitting his head. He admits to alcohol use this evening. He has a history of alcohol addiction and says he will drink alcohol whenever he is "able to" and the same goes with using marijuana. He denies any other illicit drug use. He says that someone witnessed him passing out and they were the person to call the ambulance. However he does appear either postictal or intoxicated with some slurred speech and drowsiness if not stimulated and therefore he is a poor historian at this time. He appears to have a past medical history of arthritis, asthma, COPD, hypertension, kidney stones, nonspecific liver disease, seizures. ED Past Medical Hx - Past Medical History Previous Medical History?: Yes Hx Hypertension: Yes Hx Heart Attack/AMI: No Hx Diabetes: No Hx Deep Vein Thrombosis: No Hx Pulmonary Embolism: No Hx Liver Disease: Yes Hx Renal Disease: No Hx Sickle Cell Disease: No Hx Arthritis: Yes Hx Seizures: Yes Hx Kidney Stones: Yes Hx Asthma: Yes Hx COPD: Yes Hx Tuberculosis: No Hx Dementia: No Hx HIV: No Additional medical history: enlarged heart. - Surgical History Past Surgical History?: Yes Hx Coronary Stent: No Hx Pacemaker: No Hx Internal Defibrillator: No Hx Appendectomy: Yes Additional Surgical History: Left upper extremity surgery related to trauma - Social History Smoking Status: Current Every Day Smoker Substance Use Type: Alcohol - Medications Home Medications: Home Medications Medication Instructions Recorded Confirmed Last Taken Type levETIRAcetam [Keppra TAB] 750 mg PO BID #60 tablet 12/01/16 Unknown Rx ED Review of Systems ROS: Stated complaint: SEIZURE Other details as noted in HPI Comment: Unobtainable due to pts medical conditions Physical Exam - Physical Exam Vital Signs: Vital Signs 04/25/17 04/25/17 19:37 20:08 Temperature 98.2 F Pulse Rate 76 Respiratory 18 18 Rate Blood Pressure 151/77 O2 Sat by Pulse 100 100 Oximetry Physical Exam: GENERAL: The patient is well-developed well-nourished. HENT: Normocephalic. Atraumatic. Patient has moist mucous membranes. EYES: Extraocular motions are intact. Pupils equal reactive to light bilaterally. No nystagmus. NECK: Supple. Trachea is midline. CHEST/LUNGS: Clear to auscultation. There is no respiratory distress noted. HEART/CARDIOVASCULAR: Regular. There is no tachycardia. There is no gallop rub or murmur. ABDOMEN: Abdomen is soft, nontender. Patient has normal bowel sounds. There is no abdominal distention. SKIN: Skin is warm and dry. NEURO: The patient is awake and cooperative. He does appear intoxicated. Slurred speech. No motor or sensory deficits. GCS of 14. MUSCULOSKELETAL: There is no tenderness or deformity. There is no limitation range of motion. There is no evidence of acute injury. ED Course Vital Signs 04/25/17 04/25/17 19:37 20:08 Temperature 98.2 F Pulse Rate 76 Respiratory 18 18 Rate Blood Pressure 151/77 O2 Sat by Pulse 100 100 Oximetry - Consultations Consultation #1: CT of the head without contrast shows a mild amount of bifrontal subarachnoid hemorrhage that appears to be acute. [facility] has been contacted regarding possible transfer and I am awaiting a callback from neurosurgery. 04/25/17 21:25 04/25/17 21:48 I spoke with the neurosurgeon, Dr. Stallings, who looked at the CT scan and this into the case presentation and has graciously agreed to accept the patient for transfer to [facility]. ED Medical Decision Making - Lab Data Result diagrams: 04/25/17 20:51 04/25/17 20:16 - EKG Data -: EKG Interpreted by [facility] EKG shows normal: sinus rhythm, axis, intervals, QRS complexes, ST-T waves Rate: normal - EKG Data When compared to previous EKG there are: previous EKG unavailable Interpretation: normal EKG - Radiology Data Radiology results: report reviewed PROCEDURE: CT HEAD/BRAIN WO CON TECHNIQUE: Computerized tomography of the head was performed without contrast material. HISTORY: Seizure COMPARISON: 11/30/2016 FINDINGS: There is new trace amount of bifrontal subarachnoid hemorrhage in the midline frontal region. There is no evidence of intracranial mass, hydrocephalus, or acute territorial infarction. The intracranial arteries are symmetric in density. There is underlying involutional change. No acute fracture is seen. There is a small amount of fluid in the left maxillary sinus. Fluid is seen in the left mastoid air cells. IMPRESSION: Trace amount of acute bifrontal subarachnoid hemorrhage along medial frontal lobes.. Mild sinus disease PROCEDURE: CT CERVICAL SPINE WO CON TECHNIQUE: Computerized tomography of the cervical spine was performed from the skull base to T1 without contrast material. HISTORY: Seizure COMPARISON: No prior studies are available for comparison. FINDINGS: The vertebral body heights and alignment are maintained. There are osteoarthritic changes at the atlantodental articulation. There are degenerative disc changes at C4-5 and C6-7, with disc space narrowing and osteophyte formation. There may be a nodular density in the right lung apex, not fully imaged. IMPRESSION: No acute fracture or subluxation is seen. Possible right apical pulmonary nodule or opacity, not fully imaged - Medical Decision Making 71-year-old male presents intoxicated by alcohol with possible syncopal versus seizure event prior presentation. He has a GCS of 14. He does have some slurred speech but there are no motor or sensory deficits and his cranial nerves are intact. Sometimes he does require continuous stimulation or redirection. EKG does not show any signs of ST elevation [place] or dysrhythmia. Labs are mostly unremarkable except for positive marijuana on UDS and a blood alcohol level of 0.29. Due to the possible fall, a CT of the brain and cervical spine were done. CT of the head without contrast came back showing acute mild bifrontal subarachnoid hemorrhage. As per the consultation section, I spoke with neurosurgery at [facility] who has accepted the patient for transfer. Transportation is on its way with an ETA of 30 minutes. The patient has been updated regarding the findings and the plan for transfer and despite his alcohol intoxication, he does appear to understand the diagnosis and plan. - Differential Diagnosis subarachnoid hemorrhage, seizure, alcohol intoxication Critical Care Time: Yes Critical care time in (mins) excluding proc time.: 31 Critical care attestation.: If time is entered above; I have spent that time in minutes in the direct care of this critically ill patient, excluding procedure time. Critical care time was spent on this patient and during his initial evaluation, multiple re- evaluations, discussion with the patient, ordering an interpretation of labs and imaging, discussion with the neurosurgeon. Critical Care Time: 31 minutes ED Disposition Clinical Impression: Subarachnoid hemorrhage Altered mental status Qualifiers: Altered mental status type: unspecified Qualified Code(s): R41.82 - Altered mental status, unspecified Alcohol intoxication Qualifiers: Complication of substance-induced condition: with unspecified complication Qualified Code(s): F10.929 - Alcohol use, unspecified with intoxication, unspecified Hypertension Qualifiers: Hypertension type: essential hypertension Qualified Code(s): I10 - Essential ( primary) hypertension Disposition: DC/TX-70 ANOTHER TYPE HLTHCARE Is pt being admited?: No Condition: Serious Instructions: Hypertension (ED) Referrals: PRIMARY CARE, [Primary Care Provider] - 3-5 Days Time of Disposition: 22:08
[2017-04-25 20:58] LABS: Basophils % (Auto) 0.4 % (0.0-1.8); Hematocrit 39.9 % (35.5-45.6); Hemoglobin 13.1 gm/dl (11.8-15.2); Mean Corpuscular HGB Conc 33 % (32-34); Mean Corpuscular Hemoglobin 30 pg (28-32); Mean Corpuscular Volume 93 fl (84-94); Platelet Count 146 K/mm3 (140-440); White Blood Count 6.4 K/mm3 (4.5-11.0)
[2017-04-25] MEDS ORDERED: VITAMIN B-1 100 MG, FOLVITE 1 MG, INFUVITE 10 ML in NACL 0.9% 1000 ML 1,000 ML IV ONE (21:07)
--- NOTE | 2017-04-25 21:11 | Cat Scan Report ---
FINAL REPORT PROCEDURE: CT HEAD/BRAIN WO CON TECHNIQUE: Computerized tomography of the head was performed without contrast material. HISTORY: Seizure COMPARISON: 11/30/2016 FINDINGS: There is new trace amount of bifrontal subarachnoid hemorrhage in the midline frontal region. There is no evidence of intracranial mass, hydrocephalus, or acute territorial infarction. The intracranial arteries are symmetric in density. There is underlying involutional change. No acute fracture is seen. There is a small amount of fluid in the left maxillary sinus. Fluid is seen in the left mastoid air cells. IMPRESSION: Trace amount of acute bifrontal subarachnoid hemorrhage along medial frontal lobes.. Mild sinus disease
[2017-04-25 21:15] LABS: Creatine Kinase 165 units/L (55-170)
--- NOTE | 2017-04-25 21:16 | Cat Scan Report ---
FINAL REPORT PROCEDURE: CT CERVICAL SPINE WO CON TECHNIQUE: Computerized tomography of the cervical spine was performed from the skull base to T1 without contrast material. HISTORY: Seizure COMPARISON: No prior studies are available for comparison. FINDINGS: The vertebral body heights and alignment are maintained. There are osteoarthritic changes at the atlantodental articulation. There are degenerative disc changes at C4-5 and C6-7, with disc space narrowing and osteophyte formation. There may be a nodular density in the right lung apex, not fully imaged. IMPRESSION: No acute fracture or subluxation is seen. Possible right apical pulmonary nodule or opacity, not fully imaged
[2017-04-25] MEDS ORDERED: KEPPRA 1,000 MG/NS 0.75% 100ML 1,000 MG/100 ML BAG IV ONE (21:21)
[2017-04-25 21:29] LABS: Alanine Aminotransferase 66 units/L (7-56); Albumin 4.2 g/dL (3.9-5); Albumin/Globulin Ratio 1.4 %; Alkaline Phosphatase 87 units/L (35-129); Anion Gap 22 mmol/L; BUN/Creatinine Ratio 16; Blood Urea Nitrogen 13 mg/dL (9-20); Carbon Dioxide 24 mmol/L (22-30); Chloride 99.9 mmol/L (98-107); Glucose 94 mg/dL (75-100); Potassium 4.6 mmol/L (3.6-5.0); Sodium 141 mmol/L (137-145); Total Protein 7.3 g/dL (6.3-8.2)
[2017-04-25 21:36] LABS: Urine Drugs of Abuse Note Disclamer
[2017-04-25 21:47] LABS: INR 0.93 (0.87-1.13)
[2017-04-25 21:48] LABS: Partial Thromboplastin Time 29.3 Sec. (24.2-36.6)
[2017-04-25 21:53] LABS: Bilirubin,Urine NEG (Negative); Blood,Urine MOD (Negative); Ketones,Urine NEG (Negative); Leukocyte Esterase,Urine NEG (Negative); Mucus,Urine FEW /HPF; Nitrite,Urine NEG (Negative); Protein,Urine <15 mg/dL mg/dL (Negative); WBC,Urine < 1.0 /HPF (0.0-6.0)
[2017-04-25 22:51] VITALS: BP 150/85
== END 2017-04-25 22:45 | disposition other institution (70) ==
LOC: ED 19:17
DX: I60.9 Nontraumatic subarachnoid hemorrhage, unspecified (principal); R41.82 Altered mental status, unspecified; F10.929 Alcohol use, unspecified with intoxication, unspecified; I10 Essential (primary) hypertension; F17.200 Nicotine dependence, unspecified, uncomplicated; J45.909 Unspecified asthma, uncomplicated
CPT/HCPCS: 36415; 70450; 72125; 80053; 80307; 81001; 82550; 84443; 84484; 85025; 85610; 85730; 93005; 93010; 96365; 96366; 96368; 99291; G0480; J1953; J3411; J7030; 80320

== ENCOUNTER 2017-12-08 02:53 | Emergency (ER) | payer MEDICARE ==
[2017-12-08 03:26] LABS: Hematocrit 41.1 % (35.5-45.6); Hemoglobin 13.4 gm/dl (11.8-15.2); Mean Corpuscular HGB Conc 33 % (32-34); Mean Corpuscular Hemoglobin 27 pg (28-32); Mean Corpuscular Volume 82 fl (84-94); Platelet Count 301 K/mm3 (140-440); Red Blood Count 5.03 M/mm3 (3.65-5.03)
[2017-12-08 03:43] LABS: BUN/Creatinine Ratio 16; Blood Urea Nitrogen 14 mg/dL (9-20); Calcium 9.3 mg/dL (8.4-10.2); Hemolysis Index 3
[2017-12-08] MEDS ORDERED: KEPPRA 1,000 MG/NS 0.75% 100ML 1,000 MG/100 ML BAG IV ONE (04:05)
--- NOTE | 2017-12-08 05:08 | Emergency Department Report ---
HPI - General Chief Complaint: Seizure - HPI HPI: Room 22 The patient is a 72-year-old male presented with a chief complaint seizure. Patient reportedly had a generalized tonic-clonic seizure today and was transported to the ED. The patient states his last seizure occurred several months ago. The patient states he's been compliant with his Keppra. Patient currently denies any complaints Location: [facility] Duration: [See above] Quality: Generalized tonic-clonic Severity: Moderate Modifying factors: [see above] Context: [see above] Mode of transportation: [not driving] ED Past Medical Hx - Past Medical History Previous Medical History?: Yes Hx Hypertension: Yes Hx Liver Disease: Yes Hx Arthritis: Yes Hx Seizures: Yes Hx Kidney Stones: Yes Hx Asthma: Yes Hx COPD: (denies) Additional medical history: enlarged heart. - Surgical History Past Surgical History?: Yes Hx Appendectomy: Yes Additional Surgical History: Left upper extremity surgery related to trauma - Family History Family history: no significant - Social History Smoking Status: Current Every Day Smoker (1/2 pack per day) Substance Use Type: None (denies illicit drug use), Alcohol (occasional) - Medications Home Medications: Home Medications Medication Instructions Recorded Confirmed Last Taken Type Folic Acid [Folvite] 1 mg PO QDAY #30 tablet 09/10/17 Unknown Rx Metoprolol [Lopressor TAB] 25 mg PO TID #90 tablet 09/10/17 Unknown Rx levETIRAcetam [Keppra TAB] 1,000 mg PO BID #60 tablet 09/10/17 Unknown Rx ED Review of Systems ROS: Stated complaint: SEIZURE Other details as noted in HPI Constitutional: no symptoms reported Eyes: denies: eye pain ENT: denies: throat pain Cardiovascular: denies: chest pain Gastrointestinal: denies: abdominal pain Genitourinary: denies: dysuria Musculoskeletal: denies: back pain Neurological: other (seizure). denies: headache Physical Exam - Physical Exam Vital Signs: Vital Signs 12/08/17 12/08/17 12/08/17 02:55 03:00 03:01 Temperature 97.9 F Pulse Rate 85 79 101 H Respiratory 15 15 18 Rate Blood Pressure 152/79 143/76 142/82 O2 Sat by Pulse 96 97 98 Oximetry 12/08/17 12/08/17 12/08/17 03:05 03:15 03:31 Temperature Pulse Rate 90 Respiratory 20 24 19 Rate Blood Pressure 154/81 120/64 O2 Sat by Pulse 98 94 95 Oximetry Physical Exam: GENERAL: The patient is well-developed well-nourished male lying on stretcher not appearing to be in acute distress. [] HEENT: Normocephalic. Atraumatic. Extraocular motions are intact. Patient has moist mucous membranes. NECK: Supple. No meningitic signs are noted. Trachea midline CHEST/LUNGS: Clear to auscultation. There is no respiratory distress noted. HEART/CARDIOVASCULAR: Regular. There is no tachycardia. There is no gallop rub or murmur. ABDOMEN: Abdomen is soft, nontender. Patient has normal bowel sounds. There is no abdominal distention. SKIN: There is no rash. There is no edema. There is no diaphoresis. NEURO: The patient is awake, alert, and oriented. The patient is cooperative. The patient has no focal neurologic deficits. The patient has normal speech. Cranial nerves II through XII grossly intact, no drift MUSCULOSKELETAL: There is no evidence of acute injury. ED Course Vital Signs 12/08/17 12/08/17 12/08/17 02:55 03:00 03:01 Temperature 97.9 F Pulse Rate 85 79 101 H Respiratory 15 15 18 Rate Blood Pressure 152/79 143/76 142/82 O2 Sat by Pulse 96 97 98 Oximetry 12/08/17 12/08/17 12/08/17 03:05 03:15 03:31 Temperature Pulse Rate 90 Respiratory 20 24 19 Rate Blood Pressure 154/81 120/64 O2 Sat by Pulse 98 94 95 Oximetry ED Medical Decision Making - Lab Data Result diagrams: 12/08/17 03:09 12/08/17 03:09 Laboratory Tests 12/08/17 12/08/17 03:09 03:09 WBC 5.3 RBC 5.03 Hgb 13.4 Hct 41.1 MCV 82 L MCH 27 L MCHC 33 RDW 19.0 H Plt Count 301 Sodium 133 L Potassium 3.7 Chloride 96.6 L Carbon Dioxide 24 Anion Gap 16 BUN 14 Creatinine 0.9 Estimated GFR > 60 BUN/Creatinine Ratio 16 Glucose 101 H Calcium 9.3 - Differential Diagnosis seizure Critical care attestation.: If time is entered above; I have spent that time in minutes in the direct care of this critically ill patient, excluding procedure time. ED Disposition Clinical Impression: Seizure Disposition: DC-01 TO HOME OR SELFCARE Is pt being admited?: No Does the pt Need Aspirin: No Condition: Stable Instructions: Epilepsy (ED) Additional Instructions: Return to the emergency department immediately should you develop worsening symptoms, fever, inability to tolerate food or liquid or any other concerns. Referrals: PRIMARY CARE, [Primary Care Provider] - 3-5 Days JASON NESBITT MD [Staff Physician] - 3-5 Days (Dr. Nesbitt is a neurologist. Please follow up with him for further evaluation if you do not already have a neurologist) Time of Disposition: 05:08
[2017-12-08 17:33] VITALS: BP 141/74
== END 2017-12-08 17:33 | disposition home or self-care (01) ==
LOC: ED 02:53
DX: R56.9 Unspecified convulsions (principal); I10 Essential (primary) hypertension; M19.90 Unspecified osteoarthritis, unspecified site; J45.909 Unspecified asthma, uncomplicated; F17.200 Nicotine dependence, unspecified, uncomplicated
CPT/HCPCS: 36415; 80048; 85027; 96365; 99284; J1953

== ENCOUNTER 2018-06-22 08:02 | Emergency (ER) | payer MEDICARE ==
--- NOTE | 2018-06-22 08:38 | Emergency Department Report ---
ED Seizure HPI - General Chief Complaint: Seizure Stated Complaint: SEIZURE Time Seen by Provider: 06/22/18 08:24 Source: EMS Mode of arrival: Stretcher Limitations: No Limitations - History of Present Illness Initial Comments: 72-year-old male presents to the ED following a seizure activity at home. Patient reportedly had 2 seizures at home, girlfriend called EMS. No medications given by EMS. Patient currently A&O3. Patient states he missed both doses of his seizure medicine on yesterday. Patient has had a previous admission for her alcohol withdrawal. However patient states his last drink was approximately one week ago. MD Complaint: seizure -: This morning Description of Episode: loss of consciousness, tonic-clonic movement Duration of Episode: 10 -: minutes(s) Witnessed:: Yes Seizure History: known seizure disorder, history of withdrawal se Place: home Possible Precipitating Event: other (missed medication) Treatments Prior to Arrival: none - Related Data Home Medications Medication Instructions Recorded Confirmed Last Taken Lisinopril 5 mg PO QDAY 06/22/18 06/22/18 Unknown Spiriva 7.5 mcg IH BID 06/22/18 06/22/18 Unknown Thiamine [Vitamin B-1] 100 mg PO QDAY 06/22/18 06/22/18 Unknown amLODIPine [Norvasc] 10 mg PO QDAY 06/22/18 06/22/18 Unknown guaiFENesin [Guaifenesin] 400 mg PO TID 06/22/18 06/22/18 Unknown Previous Rx's Medication Instructions Recorded Last Taken Type Folic Acid [Folvite] 1 mg PO QDAY #30 tablet 01/22/18 Unknown Rx Metoprolol [Lopressor TAB] 25 mg PO TID #90 tablet 01/22/18 Unknown Rx Allergies Allergy/AdvReac Type Severity Reaction Status Date / Time No Known Allergies Allergy Verified 04/25/17 19:46 ED Review of Systems ROS: Stated complaint: SEIZURE Other details as noted in HPI Comment: All other systems reviewed and negative Constitutional: denies: chills, fever Respiratory: denies: shortness of breath Cardiovascular: denies: chest pain Gastrointestinal: denies: abdominal pain, nausea, vomiting Neurological: denies: headache ED Past Medical Hx - Past Medical History Previous Medical History?: Yes Hx Hypertension: Yes Hx Heart Attack/AMI: No Hx Diabetes: No Hx Deep Vein Thrombosis: No Hx Pulmonary Embolism: No Hx Liver Disease: Yes Hx Renal Disease: No Hx Sickle Cell Disease: No Hx Arthritis: Yes Hx Seizures: Yes Hx Kidney Stones: Yes Hx Asthma: Yes Hx COPD: (denies) Hx Tuberculosis: No Hx Dementia: No Hx HIV: No Additional medical history: enlarged heart. - Surgical History Hx Coronary Stent: No Hx Pacemaker: No Hx Internal Defibrillator: No Hx Appendectomy: Yes Additional Surgical History: Left upper extremity surgery related to trauma - Social History Smoking Status: Current Some Day Smoker Substance Use Type: Alcohol - Medications Home Medications: Home Medications Medication Instructions Recorded Confirmed Last Taken Type Folic Acid [Folvite] 1 mg PO QDAY #30 tablet 01/22/18 06/22/18 Unknown Rx Metoprolol [Lopressor TAB] 25 mg PO TID #90 tablet 01/22/18 06/22/18 Unknown Rx Lisinopril 5 mg PO QDAY 06/22/18 06/22/18 Unknown History Spiriva 7.5 mcg IH BID 06/22/18 06/22/18 Unknown History Thiamine [Vitamin B-1] 100 mg PO QDAY 06/22/18 06/22/18 Unknown History amLODIPine [Norvasc] 10 mg PO QDAY 06/22/18 06/22/18 Unknown History guaiFENesin [Guaifenesin] 400 mg PO TID 06/22/18 06/22/18 Unknown History ED Physical Exam - General Limitations: No Limitations General appearance: alert, in no apparent distress - Head Head exam: Present: atraumatic, normocephalic - Eye Eye exam: Present: normal appearance - ENT ENT exam: Present: mucous membranes moist - Neck Neck exam: Present: normal inspection - Respiratory Respiratory exam: Present: normal lung sounds bilaterally. Absent: respiratory distress - Cardiovascular Cardiovascular Exam: Present: regular rate, normal rhythm - GI/Abdominal GI/Abdominal exam: Present: soft. Absent: distended, tenderness - Extremities Exam Extremities exam: Present: normal inspection - Neurological Exam Neurological exam: Present: alert, oriented X3, CN II-XII intact, other (no tremor noted on exam). Absent: motor sensory deficit - Psychiatric Psychiatric exam: Present: normal affect, normal mood - Skin Skin exam: Present: warm, dry, intact, normal color ED Course Vital Signs 06/22/18 08:18 Temperature 98.4 F Pulse Rate 78 Respiratory 19 Rate Blood Pressure 157/92 O2 Sat by Pulse 96 Oximetry ED Medical Decision Making - Lab Data Result diagrams: 06/22/18 08:56 06/22/18 08:56 - Medical Decision Making 72-year-old male with history of seizure disorder presents to ED after having 2 seizures this morning. He reports he has not been completely compliant with his Keppra. 1 g dose was given here in ED. Labs drawn, no acute abnormalities. Patient observed in ED 2.5 hours, no seizures while here in ED. Patient remains awake and alert, oriented 3. Will discharge home at this time. Advised outpatient follow-up. - Differential Diagnosis seizure, med noncompliance, electrolyte abnormality Critical care attestation.: If time is entered above; I have spent that time in minutes in the direct care of this critically ill patient, excluding procedure time. ED Disposition Clinical Impression: Seizure Disposition: DC-01 TO HOME OR SELFCARE Is pt being admited?: No Condition: Stable Instructions: Recurrent Seizures Adult (ED) Referrals: PRIMARY CAREMD [Primary Care Provider] - 3-5 Days SHELLY BARFIELD MD [Referring] - 3-5 Days Time of Disposition: 10:33
[2018-06-22] MEDS: KEPPRA 1,000 MG in NACL 0.9% 100 ML IV ONE ×2 (08:46→09:23)
[2018-06-22] MEDS ORDERED: KEPPRA 1,000 MG/NS 0.75% 100ML 1,000 MG/100 ML BAG IV ONE ×2 (08:46→09:00)
[2018-06-22 09:09] LABS: Basophils % (Auto) 0.4 % (0.0-1.8); Eosinophils # (Auto) 0.1 K/mm3 (0.0-0.4); Hemoglobin 12.7 gm/dl (11.8-15.2); Lymphocytes # (Auto) 0.7 K/mm3 (1.2-5.4); Lymphocytes % (Auto) 9.1 % (13.4-35.0); Mean Corpuscular HGB Conc 33 % (32-34); Mean Corpuscular Volume 84 fl (84-94); Monocytes # (Auto) 0.7 K/mm3 (0.0-0.8); Monocytes % (Auto) 9.1 % (0.0-7.3); Platelet Count 246 K/mm3 (140-440); Red Blood Count 4.67 M/mm3 (3.65-5.03); Red Cell Distribution Width 18.5 % (13.2-15.2)
[2018-06-22 09:33] LABS: BUN/Creatinine Ratio 17; Blood Urea Nitrogen 15 mg/dL (9-20); Calcium 9.3 mg/dL (8.4-10.2); Hemolysis Index 101
[2018-06-22 10:53] VITALS: BP 161/86
== END 2018-06-22 12:56 | disposition home or self-care (01) ==
LOC: ED 08:02
DX: R56.9 Unspecified convulsions (principal); I10 Essential (primary) hypertension; M19.90 Unspecified osteoarthritis, unspecified site; J45.909 Unspecified asthma, uncomplicated; F17.200 Nicotine dependence, unspecified, uncomplicated; Z90.49 Acquired absence of other specified parts of digestive tract
CPT/HCPCS: 36415; 80048; 85025; 96374; 99283; J1953

== ENCOUNTER 2018-11-09 10:13 | Inpatient (IN) | payer MEDICARE ==
[2018-11-09] MEDS ORDERED: KEPPRA 1,000 MG/NS 0.75% 100ML 1,000 MG/100 ML BAG IV ONE (11:01)
--- NOTE | 2018-11-09 11:16 | Emergency Department Report ---
HPI - General Chief Complaint: Seizure Time Seen by Provider: 11/09/18 10:46 - HPI HPI: 73-year-old -[place] male presents to the emergency department via EMS from home with an alleged seizure. The patient may be postictal but is slightly confused and therefore is a poor historian. Records show that the patient has a history of alcohol abuse and dependence with previous alcohol withdrawal seizures. He also has a history of paroxysmal A. fib, previous subarachnoid, hyperthyroidism, chronic alcoholic liver disease. It does not appear that the patient received any treatment for his symptoms prior to arrival. 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 TBI - Surgical History Past Surgical History?: Yes Hx Coronary Stent: No Hx Pacemaker: No Hx Internal Defibrillator: No Hx Appendectomy: Yes Additional Surgical History: Left upper extremity surgery related to trauma - Social History Smoking Status: Unknown if ever smoked Substance Use Type: Alcohol - Medications Home Medications: Home Medications Medication Instructions Recorded Confirmed Last Taken Type Folic Acid [Folvite] 1 mg PO QDAY #30 tablet 01/22/18 06/22/18 Unknown Rx Metoprolol [Lopressor TAB] 25 mg PO TID #90 tablet 01/22/18 06/22/18 Unknown Rx Lisinopril 5 mg PO QDAY 06/22/18 06/22/18 Unknown History Spiriva 7.5 mcg IH BID 06/22/18 06/22/18 Unknown History Thiamine [Vitamin B-1] 100 mg PO QDAY 06/22/18 06/22/18 Unknown History amLODIPine [Norvasc] 10 mg PO QDAY 06/22/18 06/22/18 Unknown History guaiFENesin [Guaifenesin] 400 mg PO TID 06/22/18 06/22/18 Unknown History ED Review of Systems ROS: Stated complaint: SEIZURE Other details as noted in HPI Comment: Unobtainable due to pts medical conditions Physical Exam - Physical Exam Vital Signs: Vital Signs 11/09/18 10:33 Temperature 98.6 F Pulse Rate 99 H Respiratory 16 Rate Blood Pressure 122/72 O2 Sat by Pulse 96 Oximetry Physical Exam: GENERAL: The patient is well-developed well-nourished. HENT: Normocephalic. Atraumatic. Patient has moist mucous membranes. EYES: Extraocular motions are intact. Pupils equal reactive to light bilaterally. No nystagmus. NECK: Supple. Trachea is midline. CHEST/LUNGS: Clear to auscultation. There is no respiratory distress noted. HEART/CARDIOVASCULAR: Regular. There is no tachycardia. There is no murmur. ABDOMEN: Abdomen is soft, nontender. Patient has normal bowel sounds. There is no abdominal distention. SKIN: Skin is warm and dry. NEURO: The patient is awake, and cooperative but confused. Cranial nerves II through XII grossly intact. The patient has normal speech. No pronator drift. MUSCULOSKELETAL: There is no tenderness or deformity. There is no limitation range of motion. There is no evidence of acute injury. ED Course Vital Signs 11/09/18 10:33 Temperature 98.6 F Pulse Rate 99 H Respiratory 16 Rate Blood Pressure 122/72 O2 Sat by Pulse 96 Oximetry ED Medical Decision Making - Lab Data Result diagrams: 11/09/18 11:26 11/09/18 11:26 - Radiology Data Radiology results: report reviewed CT HEAD WITHOUT CONTRAST: HISTORY: Seizure. TECHNIQUE: Sequential CT images without contrast. FINDINGS: Images obtained show bilateral prominence of the sulci and ventricles. There are no abnormal intra- or extra-axial blood or fluid collections. There are no focal masses or evidence of mass effect. The otoole white matter differentiation appears within normal limits. Regions of periventricular decreased attenuation are consistent with microangiopathic ischemic disease. The posterior fossa structures including the fourth ventricle, cerebellum, and brainstem appear normal. IMPRESSION: Evidence of atrophy and microangiopathic ischemic disease. No acute intracranial process noted. No significant change since 01/17/18. Transcribed By: TTR Dictated By: LILIAN STALEY JR, MD Electronically Authenticated By: LILIAN STALEY JR, MD Signed Date/Time: 11/09/18 8024 - Medical Decision Making This patient presents to the emergency department after an alleged witnessed seizure. At first the patient is postictal or confused and unable to give the year or who the current president it. He was reevaluated multiple times and has some improvement and is now AAO3. CT of the head did not show any bleed, shift, mass, ischemia, or any other acute process. Labs are mostly unremarkable except for a urine drug screen positive for marijuana and a blood alcohol level of 0.06. This is under the legal limit but it does mean, since it was drawn around 11 AM, that the patient either was drinking this morning or drink heavily last night. He does have a history of alcohol withdrawal syndrome and se izures. The patient remained awake and alert. We attempted to ambulate him around the emergency department and the patient had difficulty even standing up secondary to some dizziness and feeling unsteady. He was placed on the alcohol withdrawal protocol and will be admitted to the hospital for further evaluation and treatment. He was accepted for admission by the hospitalist, Dr. Montgomery. - Differential Diagnosis CVA, TIA, ETOH Withdrawal, Electrolyte abnormalities Critical Care Time: No Critical care attestation.: If time is entered above; I have spent that time in minutes in the direct care of this critically ill patient, excluding procedure time. ED Disposition Clinical Impression: Gait instability Withdrawal seizures Qualifiers: Complication of substance-induced condition: with unspecified complication Qualified Code(s): F19.239 - Other psychoactive substance dependence with withdrawal, unspecified; R56.9 - Unspecified convulsions Alcohol withdrawal Qualifiers: Complication of substance-induced condition: with unspecified complication Qualified Code(s): F10.239 - Alcohol dependence with withdrawal, unspecified Hypertension Qualifiers: Hypertension type: essential hypertension Qualified Code(s): I10 - Essential (primary) hypertension Disposition: OP ADMIT IP TO THIS HOSP Is pt being admited?: Yes Condition: Fair Time of Disposition: 19:22
[2018-11-09] MEDS ORDERED: VITAMIN B-1 100 MG, FOLVITE 1 MG, INFUVITE 10 ML in NACL 0.9% 1000 ML 1,000 ML IV ONE (11:30)
[2018-11-09 11:37] LABS: Hematocrit 37.9 % (35.5-45.6); Hemoglobin 12.4 gm/dl (11.8-15.2); Mean Corpuscular HGB Conc 33 % (32-34); Mean Corpuscular Volume 92 fl (84-94); Platelet Count 357 K/mm3 (140-440); Red Blood Count 4.12 M/mm3 (3.65-5.03); Red Cell Distribution Width 16.9 % (13.2-15.2)
[2018-11-09 12:22] LABS: Alanine Aminotransferase 17 units/L (7-56); Albumin 3.7 g/dL (3.9-5); BUN/Creatinine Ratio 11; Blood Urea Nitrogen 12 mg/dL (9-20); Calcium 9.4 mg/dL (8.4-10.2); Hemolysis Index 16
--- NOTE | 2018-11-09 12:29 | Cat Scan Report ---
CT HEAD WITHOUT CONTRAST: HISTORY: Seizure. TECHNIQUE: Sequential CT images without contrast. FINDINGS: Images obtained show bilateral prominence of the sulci and ventricles. There are no abnormal intra- or extra-axial blood or fluid collections. There are no focal masses or evidence of mass effect. The otoole white matter differentiation appears within normal limits. Regions of periventricular decreased attenuation are consistent with microangiopathic ischemic disease. The posterior fossa structures including the fourth ventricle, cerebellum, and brainstem appear normal. IMPRESSION: Evidence of atrophy and microangiopathic ischemic disease. No acute intracranial process noted. No significant change since 01/17/18.
[2018-11-09 13:14] LABS: Band Neutrophils # (Manual) 0.1 K/mm3; Total Cells Counted 100
[2018-11-09 13:15] LABS: Basophils % (Manual) 0 % (0.0-1.8); Eosinophils % (Manual) 0 % (0.0-4.3); Platelet Estimate Consistent w Auto; RBC Morphology Normal
[2018-11-09 14:56] LABS: Bacteria,Urine 1+ /HPF (Negative); Bilirubin,Urine NEG (Negative); Blood,Urine MOD (Negative); Color,Urine Yellow (Yellow); Hyaline Casts,Urine 3 /LPF; Mucus,Urine FEW /HPF; Urobilinogen,Urine < 2.0 mg/dL (<2.0)
[2018-11-09 15:08] LABS: Amphetamine Screen,Urine PRESUMPTIVE NEGATIVE; Benzodiazepines Screen,Urine PRESUMPTIVE NEGATIVE; Cocaine Screen,Urine PRESUMPTIVE NEGATIVE; Methadone Screen,Urine PRESUMPTIVE NEGATIVE; Opiate Screen,Urine PRESUMPTIVE NEGATIVE
[2018-11-09 15:32] LABS: Cannabinoid Screen,Urine PRESUMPTIVE POSITIVE
[2018-11-09] MEDS ORDERED: ATIVAN IV PRN ×2 (16:35)
[2018-11-09] MEDS ORDERED: DILAUDID IV PRN (21:18)
[2018-11-09] MEDS ORDERED: SODIUM CHLORIDE FLUSH SYRINGE 10 ML IV PRN (21:18)
[2018-11-09] MEDS ORDERED: PERCOCET 5/325 PO PRN (21:18)
[2018-11-09] MEDS ORDERED: ZOFRAN IV PRN (21:18)
[2018-11-09] MEDS ORDERED: NON-FORMULARY (Lisinopril 5 MG) PO SCH (21:30)
[2018-11-09] MEDS ORDERED: SPIRIVA IH SCH (22:00)
[2018-11-09] MEDS ORDERED: PEPCID IV SCH (22:00)
[2018-11-09] MEDS ORDERED: KEPPRA PO SCH (22:00)
[2018-11-09 22:12] LABS: Albumin 3.4 g/dL (3.9-5)
[2018-11-09] MEDS: NORVASC PO SCH (22:27)
[2018-11-09] MEDS: TYLENOL PO PRN (22:27)
[2018-11-09] MEDS: FOLVITE PO SCH (22:28)
[2018-11-09] MEDS: VITAMIN B-1 PO SCH (22:28)
[2018-11-09] MEDS: SODIUM CHLORIDE FLUSH SYRINGE 10 ML IV SCH (22:29)
[2018-11-09] MEDS: LOPRESSOR PO SCH (22:32)
[2018-11-09] MEDS: D5NS 1,000 ML IV SCH (22:34)
--- NOTE | 2018-11-10 05:51 | Event Note ---
Date: 11/09/18 See H/p in reports Seizure disorder Encephalopathy sec to seizures and ETOH dependence Etoh dependence HTN COPD
[2018-11-10 06:20] LABS: Basophils % (Auto) 0.3 % (0.0-1.8); Eosinophils # (Auto) 0.1 K/mm3 (0.0-0.4); Eosinophils % (Auto) 2.2 % (0.0-4.3); Hematocrit 34.5 % (35.5-45.6); Hemoglobin 11.7 gm/dl (11.8-15.2); Lymphocytes # (Auto) 1.5 K/mm3 (1.2-5.4); Lymphocytes % (Auto) 34.4 % (13.4-35.0); Mean Corpuscular HGB Conc 34 % (32-34); Mean Corpuscular Volume 89 fl (84-94); Monocytes # (Auto) 0.5 K/mm3 (0.0-0.8); Monocytes % (Auto) 11.8 % (0.0-7.3); Platelet Count 283 K/mm3 (140-440); Red Blood Count 3.86 M/mm3 (3.65-5.03); Red Cell Distribution Width 16.5 % (13.2-15.2)
--- NOTE | 2018-11-10 06:32 | History and Physical Report ---
CHIEF COMPLAINT: Seizures x 1. HISTORY OF PRESENT ILLNESS: A 73-year-old male, very poor historian with ETOH dependence, brought in for seizures x 1. Seizures lasted for about a minute. No lacerations at the time. The patient is altered and cannot give any history. The patient has history of alcohol abuse. During my examination, the patient states that he had alcohol 4 days ago, but the patient is very lethargic and non-reliable. The patient has a history of atrial fibrillation, hypertension, and COPD. PAST MEDICAL HISTORY: As mentioned, hypertension, COPD, seizure disorder and ETOH dependence. PAST SURGICAL HISTORY: Appendectomy and left upper extremity surgery secondary to trauma. SOCIAL HISTORY: ETOH dependent. The patient is not able to quantify. The patient states that his last alcohol was 4 days ago and he takes both vodka and beer. FAMILY HISTORY: Hypertension. CURRENT MEDICATIONS: Lisinopril 5 mg once a day, thiamine 100 mg once a day, amlodipine 10 mg once a day, folic acid 1 mg once a day, Lopressor 25 mg twice a day. REVIEW OF SYSTEMS: Significant for having seizures and being lethargic and altered sensorium. Otherwise, review of systems negative. No active seizures at the time of my examination. A 14-point review of systems done. PHYSICAL EXAMINATION: GENERAL: Elderly male, lethargic, responds to questions intermittently. VITAL SIGNS: Blood pressure 142/76, temperature is 98, pulse is 72, respirations are 12. HEENT: Unremarkable. Pupils equal and reactive. NECK: Supple, no lymphadenopathy, no thyromegaly. LUNGS: Clear to auscultation and percussion. Good air entry. CARDIOVASCULAR SYSTEM: S1, S2 heard. No gallop, no murmur, no rub. Apical impulse in left fifth intercostal space in midclavicular line. ABDOMEN: Soft and benign. No hepatosplenomegaly. No guarding, no rigidity. Hernial orifices are normal. EXTREMITIES: Good pedal pulses. No pedal edema. CENTRAL NERVOUS SYSTEM: Alert and oriented x 4, nonfocal exam. SKIN: Normal. LABORATORY DATA: Significant for normal CBC: RDW 16.9. Sodium is 147, bicarbonate is 14, BUN and creatinine 12 and 1.1, albumin is 3.7. Magnesium is 2.2. Urine is negative. Drug screen is positive for marijuana. Serum alcohol is 0.06. DIAGNOSTIC DATA: EKG shows NSR CT head evidence of atrophy and microangiopathic ischemic disease. No acute intracranial process. ASSESSMENT AND PLAN: 1. Alcohol withdrawal seizure. The patient was started on IV Keppra 750 q.12. The patient to be transitioned to 750 p.o. q. 12. The patient is on 500 mg twice a day. There is a question of compliance with the medication also. 2. Acute encephalopathy secondary to seizure disorder, should resolve with control of seizures and IV fluids. 3. Hypertension. Continue amlodipine, metoprolol, and lisinopril. 4. Chronic obstructive pulmonary disease. Continue Spiriva and DuoNeb. 5. Ethanol dependence. The patient initiated on CIWA protocol. 6. Marijuana dependence. The patient to be counseled. He is lethargic, so could not counseling program leader him. 7. Deep venous thrombosis prophylaxis, Lovenox 40 mg subcutaneous daily and gastrointestinal prophylaxis. JOB# [id number] TEO/FRIEDA BERTRAND
[2018-11-10 06:47] LABS: Alanine Aminotransferase 16 units/L (7-56); Albumin 3.4 g/dL (3.9-5); BUN/Creatinine Ratio 14; Blood Urea Nitrogen 11 mg/dL (9-20); Calcium 8.8 mg/dL (8.4-10.2); Hemolysis Index 5
[2018-11-10] MEDS: KEPPRA 750 MG in D5W 100 ML IV SCH ×3 (07:01→18:41)
[2018-11-10] MEDS: SPIRIVA IH SCH ×2 (08:28→18:10)
[2018-11-10] MEDS ORDERED: KEPPRA 750 MG in D5W 100 ML IV SCH (10:00)
[2018-11-10] MEDS: VITAMIN B-1 PO SCH (10:11)
[2018-11-10] MEDS: NORVASC PO SCH (10:11)
[2018-11-10] MEDS: FOLVITE PO SCH (10:11)
[2018-11-10] MEDS: PEPCID PO SCH ×2 (10:11→22:04)
[2018-11-10] MEDS: ZESTRIL PO SCH (10:11)
[2018-11-10] MEDS: SODIUM CHLORIDE FLUSH SYRINGE 10 ML IV SCH ×2 (10:12→22:05)
[2018-11-10] MEDS: LOPRESSOR PO SCH ×3 (10:14→20:04)
[2018-11-10] MEDS ORDERED: K-DUR PO ONE (12:52)
--- NOTE | 2018-11-10 12:53 | Progress Note ---
Assessment and Plan Assessment and plan: --Hypokalemia; replace per protocol and monitor levels --Alcohol withdrawal seizures; seizure precautions [facility] protocol, patient is already on antiepileptic medications --Acute agitation, restlessness and aggression; continue Ativan [facility] protocol Haldol as needed, safety security officer, restrain as needed --Metabolic encephalopathy; present on admission Probably postictal, patient is agitated,wants to go home. --History of COPD; oxygen titrate O2 sats to more than 90%, nebulizers Steroids if needed and supportive care --History of chronic alcohol use; patient strongly advised to quit alcohol intake Following withdrawal symptoms --History of marijuana use; patient advised to quit recreational drugs --DVT prophylaxis; Lovenox --Full CODE STATUS No family at the bedside, patient is agitated in home baby sitter in the room I called his son at [phone], unable to reach, left a message to call back Monitor closely and adjust management as needed History Interval history: Patient seen and examined this afternoon medical records reviewed Admitted with seizures episodes and possible alcohol withdrawal symptoms and regurgitation Patient is restless and constantly go home, not staying in the bed, pulling IV lines No new episodes of seizure Vital signs noted Hospitalist Physical - Constitutional Vitals: Temp Pulse Resp BP Pulse Ox 98.0 F 65 20 153/84 98 11/10/18 07:40 11/10/18 10:11 11/10/18 08:40 11/10/18 10:11 11/10/18 07:40 General appearance: Present: no acute distress, well-nourished - EENT Eyes: Present: PERRL, EOM intact - Neck Neck: Present: supple, normal ROM - Respiratory Respiratory effort: normal Respiratory: bilateral: diminished, negative: rales, rhonchi, wheezing - Extremities Extremities: no ischemia, pulses intact - Abdominal General gastrointestinal: soft, non-tender, non-distended, normal bowel sounds - Integumentary Integumentary: Present: clear, warm - Psychiatric Psychiatric: appropriate mood/affect, agitated - Neurologic Neurologic: moves all extremities Results - Labs CBC & Chem 7: 11/10/18 05:12 11/10/18 05:12 Labs: Laboratory Last Values WBC 4.4 K/mm3 (4.5-11.0) L 11/10/18 05:12 RBC 3.86 M/mm3 (3.65-5.03) 11/10/18 05:12 Hgb 11.7 gm/dl (11.8-15.2) L 11/10/18 05:12 Hct 34.5 % (35.5-45.6) L 11/10/18 05:12 MCV 89 fl (84-94) 11/10/18 05:12 MCH 30 pg (28-32) 11/10/18 05:12 MCHC 34 % (32-34) 11/10/18 05:12 RDW 16.5 % (13.2-15.2) H 11/10/18 05:12 Plt Count 283 K/mm3 (140-440) 11/10/18 05:12 Lymph % (Auto) 34.4 % (13.4-35.0) 11/10/18 05:12 [place] % (Auto) 11.8 % (0.0-7.3) H 11/10/18 05:12 Eos % (Auto) 2.2 % (0.0-4.3) 11/10/18 05:12 Baso % (Auto) 0.3 % (0.0-1.8) 11/10/18 05:12 Lymph # 1.5 K/mm3 (1.2-5.4) 11/10/18 05:12 [place] # 0.5 K/mm3 (0.0-0.8) 11/10/18 05:12 Eos # 0.1 K/mm3 (0.0-0.4) 11/10/18 05:12 Baso # 0.0 K/mm3 (0.0-0.1) 11/10/18 05:12 Add Manual Diff Complete 11/09/18 11:26 Total Counted 100 11/09/18 11:26 Seg Neutrophils % 51.3 % (40.0-70.0) 11/10/18 05:12 Seg Neuts % (Manual) 93.0 % (40.0-70.0) H 11/09/18 11:26 1.0 % 11/09/18 11:26 3.0 % (13.4-35.0) L 11/09/18 11:26 Reactive Lymphs % (Man) 0 % 11/09/18 11:26 3.0 % (0.0-7.3) 11/09/18 11:26 0 % (0.0-4.3) 11/09/18 11:26 0 % (0.0-1.8) 11/09/18 11:26 0 % 11/09/18 11:26 0 % 11/09/18 11:26 0 % 11/09/18 11:26 0 % 11/09/18 11:26 Nucleated RBC % Not Reportable 11/09/18 11:26 Seg Neutrophils # 2.3 K/mm3 (1.8-7.7) 11/10/18 05:12 Seg Neutrophils # Man 10.0 K/mm3 (1.8-7.7) H 11/09/18 11:26 Band Neutrophils # 0.1 K/mm3 11/09/18 11:26 0.3 K/mm3 (1.2-5.4) L 11/09/18 11:26 Abs React Lymphs (Man) 0.0 K/mm3 11/09/18 11:26 0.3 K/mm3 (0.0-0.8) 11/09/18 11:26 0.0 K/mm3 (0.0-0.4) 11/09/18 11:26 0.0 K/mm3 (0.0-0.1) 11/09/18 11:26 0.0 K/mm3 11/09/18 11:26 0.0 K/mm3 11/09/18 11:26 0.0 K/mm3 11/09/18 11:26 Blast Cells # 0.0 K/mm3 11/09/18 11:26 WBC Morphology Not Reportable 11/09/18 11:26 Hypersegmented Neuts Not Reportable 11/09/18 11:26 Hyposegmented Neuts Not Reportable 11/09/18 11:26 Hypogranular Neuts Not Reportable 11/09/18 11:26 Not Reportable 11/09/18 11:26 Not Reportable 11/09/18 11:26 Not Reportable 11/09/18 11:26 Not Reportable 11/09/18 11:26 Not Reportable 11/09/18 11:26 Not Reportable 11/09/18 11:26 Consistent w auto 11/09/18 11:26 Not Reportable 11/09/18 11:26 Plt Clumps, EDTA Not Reportable 11/09/18 11:26 Not Reportable 11/09/18 11:26 Not Reportable 11/09/18 11:26 Not Reportable 11/09/18 11:26 Plt Morphology Comment Not Reportable 11/09/18 11:26 RBC Morphology Normal 11/09/18 11:26 Dimorphic RBCs Not Reportable 11/09/18 11:26 Not Reportable 11/09/18 11:26 Not Reportable 11/09/18 11:26 Not Reportable 11/09/18 11:26 Not Reportable 11/09/18 11:26 Not Reportable 11/09/18 11:26 Not Reportable 11/09/18 11:26 Not Reportable 11/09/18 11:26 Not Reportable 11/09/18 11:26 Not Reportable 11/09/18 11:26 Not Reportable 11/09/18 11:26 Not Reportable 11/09/18 11:26 Not Reportable 11/09/18 11:26 Not Reportable 11/09/18 11:26 Not Reportable 11/09/18 11:26 Not Reportable 11/09/18 11:26 Not Reportable 11/09/18 11:26 Not Reportable 11/09/18 11:26 Not Reportable 11/09/18 11:26 Not Reportable 11/09/18 11:26 Acanthocytes (Spur) Not Reportable 11/09/18 11:26 Rouleaux Not Reportable 11/09/18 11:26 Not Reportable 11/09/18 11:26 Not Reportable 11/09/18 11:26 Not Reportable 11/09/18 11:26 Not Reportable 11/09/18 11:26 Hem Pathologist Commnt No 11/09/18 11:26 Sodium 142 mmol/L (137-145) 11/10/18 05:12 Potassium 3.3 mmol/L (3.6-5.0) L 11/10/18 05:12 Chloride 104.9 mmol/L (98-107) 11/10/18 05:12 Carbon Dioxide 23 mmol/L (22-30) D 11/10/18 05:12 17 mmol/L 11/10/18 05:12 BUN 11 mg/dL (9-20) 11/10/18 05:12 0.8 mg/dL (0.8-1.5) 11/10/18 05:12 Estimated GFR > 60 ml/min 11/10/18 05:12 14 % 11/10/18 05:12 Glucose 87 mg/dL (75-100) 11/10/18 05:12 4.7 % (4-6) 11/09/18 11:26 Calcium 8.8 mg/dL (8.4-10.2) 11/10/18 05:12 Phosphorus 2.10 mg/dL (2.5-4.5) L D 11/09/18 21:38 Magnesium 2.00 mg/dL (1.7-2.3) 11/09/18 21:38 1.30 mg/dL (0.1-1.2) H 11/10/18 05:12 AST 31 units/L (5-40) 11/10/18 05:12 ALT 16 units/L (7-56) 11/10/18 05:12 59 units/L (35-129) 11/10/18 05:12 < 0.010 ng/mL (0.00-0.029) 11/09/18 11:26 6.9 g/dL (6.3-8.2) 11/10/18 05:12 3.4 g/dL (3.9-5) L 11/10/18 05:12 1.0 % 11/10/18 05:12 Amylase 27 units/L (27-131) 11/09/18 21:38 29 units/L (13-60) 11/09/18 21:38 TSH 0.061 mlU/mL (0.270-4.200) L 11/09/18 11:26 Free T4 1.02 ng/dL (0.76-1.46) 11/09/18 11:26 Yellow (Yellow) 11/09/18 14:28 Cloudy (Clear) 11/09/18 14:28 5.0 (5.0-7.0) 11/09/18 14:28 Ur Specific [place] 1.016 (1.003-1.030) 11/09/18 14:28 30 mg/dl mg/dL (Negative) 11/09/18 14:28 Neg mg/dL (Negative) 11/09/18 14:28 Tr mg/dL (Negative) 11/09/18 14:28 Mod (Negative) 11/09/18 14:28 Neg (Negative) 11/09/18 14:28 Neg (Negative) 11/09/18 14:28 < 2.0 mg/dL (<2.0) 11/09/18 14:28 Ur Leukocyte Esterase Lg (Negative) 11/09/18 14:28 3.0 /HPF (0.0-6.0) 11/09/18 14:28 3.0 /HPF (0.0-6.0) 11/09/18 14:28 U Epithel Cells (Auto) 1.0 /HPF (0-13.0) 11/09/18 14:28 1+ /HPF (Negative) 11/09/18 14:28 Hyaline Casts 3 /LPF 11/09/18 14:28 Few /HPF 11/09/18 14:28 Presumptive negative 11/09/18 14:28 Presumptive negative 11/09/18 14:28 Ur Barbiturates Screen Presumptive negative 11/09/18 14:28 Ur Phencyclidine Scrn Presumptive negative 11/09/18 14:28 Ur Amphetamines Screen Presumptive negative 11/09/18 14:28 U Benzodiazepines Scrn Presumptive negative 11/09/18 14:28 Presumptive negative 11/09/18 14:28 U Marijuana (THC) Screen Presumptive positive 11/09/18 14:28 Disclamer 11/09/18 14:28 Plasma/Serum Alcohol 0.06 % (0-0.07) 11/09/18 11:26 Active Medications - Current Medications Current Medications: Generic Name Dose Route Start Last Admin Trade Name Freq PRN Reason Stop Dose Admin Acetaminophen 650 mg 11/09/18 21:18 11/09/18 22:27 Tylenol PO 650 mg Q4H PRN Administration Pain MILD(1-3)/Fever >100.5/PAULINO Amlodipine Besylate 10 mg 11/09/18 22:00 11/10/18 10:11 Norvasc PO 10 mg QDAY CHAPIS Administration Enoxaparin Sodium 40 mg 11/10/18 22:00 Lovenox SUB-Q QDAY@2200 CHAPIS Famotidine 20 mg 11/10/18 10:00 11/10/18 10:11 Pepcid PO 20 mg BID CHAPIS Administration Folic Acid 1 mg 11/09/18 22:00 11/10/18 10:11 Folvite PO 1 mg QDAY CHAPIS Administration Hydromorphone HCl 0.5 mg 11/09/18 21:18 Dilaudid IV Q3H PRN Pain , Severe (7-10) Dextrose/Sodium Chloride 1,000 mls @ 100 mls/hr 11/09/18 22:00 11/09/18 22:34 D5ns IV 100 mls/hr DIRECT CHAPIS Administration Levetiracetam 750 mg/ Dextrose 107.5 mls @ 400 mls/hr 11/10/18 06:00 11/10/18 07:01 IV 400 mls/hr Q12H CHAPIS Administration Lisinopril 5 mg 11/10/18 10:00 11/10/18 10:11 Zestril PO 5 mg QDAY CHAPIS Administration Lorazepam 2 mg 11/09/18 16:35 Ativan IV Q1HR PRN CIWA-Ar 8-15 Lorazepam 4 mg 11/09/18 16:35 Ativan IV Q1HR PRN CIWA-Ar 16-25 Lorazepam 4 mg 11/09/18 16:35 Ativan IV Q15MIN PRN CIWA-Ar >25 Metoprolol Tartrate 25 mg 11/09/18 22:00 11/10/18 10:14 Lopressor PO 25 mg TID CHAPIS Administration Ondansetron HCl 4 mg 11/09/18 21:18 Zofran IV Q8H PRN Nausea And Vomiting Oxycodone/Acetaminophen 1 tab 11/09/18 21:18 Percocet 5/325 PO Q6H PRN Pain, Moderate (4-6) Sodium Chloride 10 ml 11/09/18 22:00 11/10/18 10:12 Sodium Chloride Flush Syringe 10 Ml IV 10 ml BID CHAPIS Administration Sodium Chloride 10 ml 11/09/18 21:18 Sodium Chloride Flush Syringe 10 Ml IV PRN PRN LINE FLUSH Thiamine HCl 100 mg 11/09/18 22:00 11/10/18 10:11 Vitamin B-1 PO 100 mg QDAY CHAPIS Administration Tiotropium [place] 1 puff 11/10/18 10:00 11/10/18 08:28 Spiriva IH 1 puff Q24HR CHAPIS Administration
[2018-11-10] MEDS: ATIVAN IV PRN ×2 (14:54→21:18)
[2018-11-10] MEDS ORDERED: ATIVAN IV PRN (16:12)
[2018-11-10] MEDS: HALDOL IM PRN (16:28)
[2018-11-10] MEDS: D5NS 1,000 ML IV SCH (16:37)
[2018-11-10] MEDS: LOVENOX SUB-Q SCH (22:03)
[2018-11-11] MEDS: HALDOL IM PRN (02:50)
[2018-11-11] MEDS: D5NS 1,000 ML IV SCH ×2 (02:51→14:12)
[2018-11-11] MEDS: KEPPRA 750 MG in D5W 100 ML IV SCH ×3 (06:20→23:54)
[2018-11-11] MEDS: LOPRESSOR PO SCH ×3 (08:57→23:05)
[2018-11-11] MEDS: ZESTRIL PO SCH (09:19)
[2018-11-11] MEDS: NORVASC PO SCH (09:19)
[2018-11-11] MEDS: FOLVITE PO SCH (09:20)
[2018-11-11] MEDS: PEPCID PO SCH ×2 (09:20→23:06)
[2018-11-11] MEDS: SODIUM CHLORIDE FLUSH SYRINGE 10 ML IV SCH ×2 (09:20→23:54)
[2018-11-11] MEDS: VITAMIN B-1 PO SCH (09:20)
[2018-11-11] MEDS: SPIRIVA IH SCH (10:02)
--- NOTE | 2018-11-11 10:58 | Progress Note ---
Assessment and Plan Assessment and plan: -Hypokalemia; replace per protocol and monitor levels --Alcohol withdrawal seizures; seizure precautions [facility] protocol, patient is already on antiepileptic medications --Acute agitation, restlessness and aggression; continue Ativan [facility] protocol Haldol as needed, construction safety manager, restrain as needed --Metabolic encephalopathy; present on admission Probably postictal, patient is agitated,wants to go home. --History of COPD; oxygen titrate O2 sats to more than 90%, nebulizers Steroids if needed and supportive care --History of chronic alcohol use; patient strongly advised to quit alcohol intake Following withdrawal symptoms --History of marijuana use; patient advised to quit recreational drugs --DVT prophylaxis; Lovenox --Full CODE STATUS No family at the bedside, patient is agitated summer babysitter in the room I called his son at [phone], unable to reach, left a message to call back Monitor closely and adjust management as needed History Interval history: Patient seen and examined medical records reviewed Patient is sedated no new complaints Safety seat at the bedside Hospitalist Physical - Constitutional Vitals: Temp Pulse Resp BP Pulse Ox 97.8 F 89 18 173/87 96 11/11/18 07:28 11/11/18 10:04 11/11/18 10:04 11/11/18 07:28 11/11/18 07:28 General appearance: Present: no acute distress, well-nourished - EENT Eyes: Present: PERRL, EOM intact - Neck Neck: Present: supple, normal ROM - Respiratory Respiratory effort: normal Respiratory: bilateral: diminished, negative: rales, rhonchi, wheezing - Cardiovascular Rhythm: regular Heart Sounds: Present: S1 & S2 - Extremities Extremities: no ischemia, No edema - Abdominal General gastrointestinal: soft, non-tender, non-distended, normal bowel sounds - Integumentary Integumentary: Present: clear, warm - Psychiatric Psychiatric: appropriate mood/affect, agitated, other (confused at times) - Neurologic Neurologic: CNII-XII intact, moves all extremities Results - Labs CBC & Chem 7: 11/10/18 05:12 11/10/18 05:12 Labs: Laboratory Last Values WBC 4.4 K/mm3 (4.5-11.0) L 11/10/18 05:12 RBC 3.86 M/mm3 (3.65-5.03) 11/10/18 05:12 Hgb 11.7 gm/dl (11.8-15.2) L 11/10/18 05:12 Hct 34.5 % (35.5-45.6) L 11/10/18 05:12 MCV 89 fl (84-94) 11/10/18 05:12 MCH 30 pg (28-32) 11/10/18 05:12 MCHC 34 % (32-34) 11/10/18 05:12 RDW 16.5 % (13.2-15.2) H 11/10/18 05:12 Plt Count 283 K/mm3 (140-440) 11/10/18 05:12 Lymph % (Auto) 34.4 % (13.4-35.0) 11/10/18 05:12 [place] % (Auto) 11.8 % (0.0-7.3) H 11/10/18 05:12 Eos % (Auto) 2.2 % (0.0-4.3) 11/10/18 05:12 Baso % (Auto) 0.3 % (0.0-1.8) 11/10/18 05:12 Lymph # 1.5 K/mm3 (1.2-5.4) 11/10/18 05:12 [place] # 0.5 K/mm3 (0.0-0.8) 11/10/18 05:12 Eos # 0.1 K/mm3 (0.0-0.4) 11/10/18 05:12 Baso # 0.0 K/mm3 (0.0-0.1) 11/10/18 05:12 Add Manual Diff Complete 11/09/18 11:26 Total Counted 100 11/09/18 11:26 Seg Neutrophils % 51.3 % (40.0-70.0) 11/10/18 05:12 Seg Neuts % (Manual) 93.0 % (40.0-70.0) H 11/09/18 11:26 1.0 % 11/09/18 11:26 3.0 % (13.4-35.0) L 11/09/18 11:26 Reactive Lymphs % (Man) 0 % 11/09/18 11:26 3.0 % (0.0-7.3) 11/09/18 11:26 0 % (0.0-4.3) 11/09/18 11:26 0 % (0.0-1.8) 11/09/18 11:26 0 % 11/09/18 11:26 0 % 11/09/18 11:26 0 % 11/09/18 11:26 0 % 11/09/18 11:26 Nucleated RBC % Not Reportable 11/09/18 11:26 Seg Neutrophils # 2.3 K/mm3 (1.8-7.7) 11/10/18 05:12 Seg Neutrophils # Man 10.0 K/mm3 (1.8-7.7) H 11/09/18 11:26 Band Neutrophils # 0.1 K/mm3 11/09/18 11:26 0.3 K/mm3 (1.2-5.4) L 11/09/18 11:26 Abs React Lymphs (Man) 0.0 K/mm3 11/09/18 11:26 0.3 K/mm3 (0.0-0.8) 11/09/18 11:26 0.0 K/mm3 (0.0-0.4) 11/09/18 11:26 0.0 K/mm3 (0.0-0.1) 11/09/18 11:26 0.0 K/mm3 11/09/18 11:26 0.0 K/mm3 11/09/18 11:26 0.0 K/mm3 11/09/18 11:26 Blast Cells # 0.0 K/mm3 11/09/18 11:26 WBC Morphology Not Reportable 11/09/18 11:26 Hypersegmented Neuts Not Reportable 11/09/18 11:26 Hyposegmented Neuts Not Reportable 11/09/18 11:26 Hypogranular Neuts Not Reportable 11/09/18 11:26 Not Reportable 11/09/18 11:26 Not Reportable 11/09/18 11:26 Not Reportable 11/09/18 11:26 Not Reportable 11/09/18 11:26 Not Reportable 11/09/18 11:26 Not Reportable 11/09/18 11:26 Consistent w auto 11/09/18 11:26 Not Reportable 11/09/18 11:26 Plt Clumps, EDTA Not Reportable 11/09/18 11:26 Not Reportable 11/09/18 11:26 Not Reportable 11/09/18 11:26 Not Reportable 11/09/18 11:26 Plt Morphology Comment Not Reportable 11/09/18 11:26 RBC Morphology Normal 11/09/18 11:26 Dimorphic RBCs Not Reportable 11/09/18 11:26 Not Reportable 11/09/18 11:26 Not Reportable 11/09/18 11:26 Not Reportable 11/09/18 11:26 Not Reportable 11/09/18 11:26 Not Reportable 11/09/18 11:26 Not Reportable 11/09/18 11:26 Not Reportable 11/09/18 11:26 Not Reportable 11/09/18 11:26 Not Reportable 11/09/18 11:26 Not Reportable 11/09/18 11:26 Not Reportable 11/09/18 11:26 Not Reportable 11/09/18 11:26 Not Reportable 11/09/18 11:26 Not Reportable 11/09/18 11:26 Not Reportable 11/09/18 11:26 Not Reportable 11/09/18 11:26 Not Reportable 11/09/18 11:26 Not Reportable 11/09/18 11:26 Not Reportable 11/09/18 11:26 Acanthocytes (Spur) Not Reportable 11/09/18 11:26 Rouleaux Not Reportable 11/09/18 11:26 Not Reportable 11/09/18 11:26 Not Reportable 11/09/18 11:26 Not Reportable 11/09/18 11:26 Not Reportable 11/09/18 11:26 Hem Pathologist Commnt No 11/09/18 11:26 Sodium 142 mmol/L (137-145) 11/10/18 05:12 Potassium 3.3 mmol/L (3.6-5.0) L 11/10/18 05:12 Chloride 104.9 mmol/L (98-107) 11/10/18 05:12 Carbon Dioxide 23 mmol/L (22-30) D 11/10/18 05:12 17 mmol/L 11/10/18 05:12 BUN 11 mg/dL (9-20) 11/10/18 05:12 0.8 mg/dL (0.8-1.5) 11/10/18 05:12 Estimated GFR > 60 ml/min 11/10/18 05:12 14 % 11/10/18 05:12 Glucose 87 mg/dL (75-100) 11/10/18 05:12 4.7 % (4-6) 11/09/18 11:26 Calcium 8.8 mg/dL (8.4-10.2) 11/10/18 05:12 Phosphorus 2.10 mg/dL (2.5-4.5) L D 11/09/18 21:38 Magnesium 2.00 mg/dL (1.7-2.3) 11/09/18 21:38 1.30 mg/dL (0.1-1.2) H 11/10/18 05:12 AST 31 units/L (5-40) 11/10/18 05:12 ALT 16 units/L (7-56) 11/10/18 05:12 59 units/L (35-129) 11/10/18 05:12 < 0.010 ng/mL (0.00-0.029) 11/09/18 11:26 6.9 g/dL (6.3-8.2) 11/10/18 05:12 3.4 g/dL (3.9-5) L 11/10/18 05:12 1.0 % 11/10/18 05:12 Amylase 27 units/L (27-131) 11/09/18 21:38 29 units/L (13-60) 11/09/18 21:38 TSH 0.061 mlU/mL (0.270-4.200) L 11/09/18 11:26 Free T4 1.02 ng/dL (0.76-1.46) 11/09/18 11:26 Yellow (Yellow) 11/09/18 14:28 Cloudy (Clear) 11/09/18 14:28 5.0 (5.0-7.0) 11/09/18 14:28 Ur Specific [place] 1.016 (1.003-1.030) 11/09/18 14:28 30 mg/dl mg/dL (Negative) 11/09/18 14:28 Neg mg/dL (Negative) 11/09/18 14:28 Tr mg/dL (Negative) 11/09/18 14:28 Mod (Negative) 11/09/18 14:28 Neg (Negative) 11/09/18 14:28 Neg (Negative) 11/09/18 14:28 < 2.0 mg/dL (<2.0) 11/09/18 14:28 Ur Leukocyte Esterase Lg (Negative) 11/09/18 14:28 3.0 /HPF (0.0-6.0) 11/09/18 14:28 3.0 /HPF (0.0-6.0) 11/09/18 14:28 U Epithel Cells (Auto) 1.0 /HPF (0-13.0) 11/09/18 14:28 1+ /HPF (Negative) 11/09/18 14:28 Hyaline Casts 3 /LPF 11/09/18 14:28 Few /HPF 11/09/18 14:28 Presumptive negative 11/09/18 14:28 Presumptive negative 11/09/18 14:28 Ur Barbiturates Screen Presumptive negative 11/09/18 14:28 Ur Phencyclidine Scrn Presumptive negative 11/09/18 14:28 Ur Amphetamines Screen Presumptive negative 11/09/18 14:28 U Benzodiazepines Scrn Presumptive negative 11/09/18 14:28 Presumptive negative 11/09/18 14:28 U Marijuana (THC) Screen Presumptive positive 11/09/18 14:28 Disclamer 11/09/18 14:28 Plasma/Serum Alcohol 0.06 % (0-0.07) 11/09/18 11:26 Active Medications - Current Medications Current Medications: Generic Name Dose Route Start Last Admin Trade Name Freq PRN Reason Stop Dose Admin Acetaminophen 650 mg 11/09/18 21:18 11/09/18 22:27 Tylenol PO 650 mg Q4H PRN Administration Pain MILD(1-3)/Fever >100.5/PAULINO Amlodipine Besylate 10 mg 11/09/18 22:00 11/11/18 09:19 Norvasc PO 10 mg QDAY CHAPIS Administration Enoxaparin Sodium 40 mg 11/10/18 22:00 11/10/18 22:03 Lovenox SUB-Q 40 mg QDAY@2200 CHAPIS Administration Famotidine 20 mg 11/10/18 10:00 11/11/18 09:20 Pepcid PO 20 mg BID CHAPIS Administration Folic Acid 1 mg 11/09/18 22:00 11/11/18 09:20 Folvite PO 1 mg QDAY CHAPIS Administration Haloperidol Lact[place] 5 mg 11/10/18 16:14 11/11/18 02:50 Haldol IM 5 mg Q6H PRN Administration Agitation Hydromorphone HCl 0.5 mg 11/09/18 21:18 Dilaudid IV Q3H PRN Pain , Severe (7-10) Dextrose/Sodium Chloride 1,000 mls @ 100 mls/hr 11/09/18 22:00 11/11/18 02:51 D5ns IV 100 mls/hr DIRECT CHAPIS Administration Levetiracetam 750 mg/ Dextrose 107.5 mls @ 400 mls/hr 11/10/18 06:00 11/11/18 06:20 IV 400 mls/hr Q12H CHAPIS Administration Lisinopril 5 mg 11/10/18 10:00 11/11/18 09:19 Zestril PO 5 mg QDAY CHAPIS Administration Lorazepam 2 mg 11/09/18 16:35 11/10/18 21:18 Ativan IV 2 mg Q1HR PRN Administration CIWA-Ar 8-15 Lorazepam 4 mg 11/09/18 16:35 Ativan IV Q1HR PRN CIWA-Ar 16-25 Lorazepam 4 mg 11/09/18 16:35 Ativan IV Q15MIN PRN CIWA-Ar >25 Lorazepam 2 mg 11/10/18 16:12 11/10/18 16:24 Ativan IV 2 mg Q4H PRN Administration Agitation Metoprolol Tartrate 25 mg 11/09/18 22:00 11/11/18 08:57 Lopressor PO 25 mg TID CHAPIS Administration Ondansetron HCl 4 mg 11/09/18 21:18 11/10/18 16:41 Zofran IV 4 mg Q8H PRN Administration Nausea And Vomiting Oxycodone/Acetaminophen 1 tab 11/09/18 21:18 Percocet 5/325 PO Q6H PRN Pain, Moderate (4-6) Sodium Chloride 10 ml 11/09/18 22:00 11/11/18 09:20 Sodium Chloride Flush Syringe 10 Ml IV 10 ml BID CHAPIS Administration Sodium Chloride 10 ml 11/09/18 21:18 11/10/18 16:26 Sodium Chloride Flush Syringe 10 Ml IV 10 ml PRN PRN Administration LINE FLUSH Thiamine HCl 100 mg 11/09/18 22:00 11/11/18 09:20 Vitamin B-1 PO 100 mg QDAY CHAPIS Administration Tiotropium [place] 1 puff 11/10/18 10:00 11/11/18 10:02 Spiriva IH 1 puff Q24HR CHAPIS Administration
[2018-11-11] MEDS: LOVENOX SUB-Q SCH (23:06)
[2018-11-12] MEDS: KEPPRA 750 MG in D5W 100 ML IV SCH (06:42)
[2018-11-12] MEDS: TYLENOL PO PRN (06:42)
[2018-11-12] MEDS: D5NS 1,000 ML IV SCH (06:43)
[2018-11-12] MEDS: SPIRIVA IH SCH ×2 (08:15→10:39)
[2018-11-12] MEDS: LOPRESSOR PO SCH ×2 (08:16→13:32)
[2018-11-12] MEDS ORDERED: K-DUR PO ONE (08:52)
[2018-11-12] MEDS: VITAMIN B-1 PO SCH (09:55)
[2018-11-12] MEDS: PEPCID PO SCH (09:55)
[2018-11-12] MEDS: FOLVITE PO SCH (09:55)
[2018-11-12] MEDS: NORVASC PO SCH (09:56)
[2018-11-12] MEDS: ZESTRIL PO SCH (09:56)
[2018-11-12] MEDS: SODIUM CHLORIDE FLUSH SYRINGE 10 ML IV SCH (09:57)
--- NOTE | 2018-11-12 14:25 | Discharge Summary ---
Providers - Providers Date of Admission: 11/09/18 16:34 Date of discharge: 11/12/18 Attending physician: RENATA TORRES 11/09/18 Consult to Case Management [CONS] Routine Services Needed at Discharge: Home Health Services Notified:: LAURA 11/10/18 08:47 Physical Therapy Evaluation and Treat [CONS] Routine Comment: Reason For Exam: Weakness Primary care physician: [facility], Hospitalization Reason for admission: witnessed seizure /alcohol withdrawal Condition: Fair Pertinent studies: CT head without contrast; evidence of atrophy, micro-angiopathic ischemic disease No acute abnormality noted Hospital course: 73-year-old -[place] male presents to the emergency department via EMS from home with an alleged seizure. The patient may be postictal but is slightly confused, admitted and symptomatically managed, a CT head without contrast no acute abnormality, placed on seizure precautions Patient's seizure medication Keppra dose increased, fall precautions observed, placed on CIWA protocol Patient needed a construction safety consultant and occasional restraints for safety. Symptoms significantly improved, no new episodes of seizure activity since admission, patient is alert awake oriented today Ambulatory and tolerating oral nutrition, Patient strongly advised to quit alcohol intake and seek alcohol rehabilitation. Vital signs are stable, physical examination at discharge is unremarkable Patient is hemodynamically clinically stable at discharge Patient Advised not to drive or operate heavy machinery, to be cleared by PMD Discharge diagnosis and management -Hypokalemia; replace per protocol and monitor levels --Alcohol withdrawal seizures; seizure precautions/resolved CIWA protocol, patient is already on antiepileptic medications --Acute agitation, restlessness and aggression; continue Ativan CIWA protocol Haldol as needed, construction safety consultant, restrain as needed, improved --Metabolic encephalopathy; present on admission /resolved --History of COPD; oxygen titrate O2 sats to more than 90%, nebulizers Steroids if needed and supportive care --History of chronic alcohol use; patient strongly advised to quit alcohol intake Following withdrawal symptoms --History of marijuana use; patient advised to quit recreational drugs --DVT prophylaxis; Lovenox --Full CODE STATUS Stable at discharge Disposition: DC-01 TO HOME OR SELFCARE Time spent for discharge: 32 min Core Measure Documentation - Palliative Care Palliative Care/ Comfort Measures: Not Applicable - Core Measures Any of the following diagnoses?: none Exam - Constitutional Vitals: Temp Pulse Resp BP Pulse Ox 98.7 F 74 20 171/80 99 06/07/19 13:31 11/12/18 13:32 11/12/18 13:31 11/12/18 13:32 11/12/18 13:31 General appearance: Present: no acute distress, well-nourished - EENT Eyes: Present: PERRL, EOM intact - Neck Neck: Present: supple, normal ROM - Respiratory Respiratory effort: normal Respiratory: bilateral: diminished, negative: rales, rhonchi, wheezing - Cardiovascular Rhythm: regular Heart Sounds: Present: S1 & S2 - Extremities Extremities: no ischemia, No edema - Abdominal General gastrointestinal: Present: soft, non-tender, non-distended, normal bowel sounds - Integumentary Integumentary: Present: clear, warm - Musculoskeletal Musculoskeletal: strength equal bilaterally - Psychiatric Psychiatric: appropriate mood/affect, cooperative - Neurologic Neurologic: moves all extremities Plan Activity: advance as tolerated, no driving until cleared by PCP, fall precautions, other (seizure precautions) Diet: regular Additional Instructions: Advised to quit alcohol intake. Fall precautions, Seizure precautions. Advised to comply with medications and follow-up visits with the doctors Follow up with: HEDY GREENHAZELTON MD JAISON [Primary Care Provider] - 3-5 Days JAYDEN JARRETT MD [Staff Physician] - 7 Days Prescriptions: levETIRAcetam 750 mg PO BID #[id number]
[2018-11-12 14:53] VITALS: BP 147/82
== END 2018-11-12 15:40 | disposition home or self-care (01) | DRG 101 ==
LOC: ED 10:13 → 2B-ACE 16:34
PROVIDERS: ADMIT Internal Medicine; ATTEND Internal Medicine
DX: G40.509 Epileptic seizures related to external causes, not intractable, without status epilepticus (principal); F10.239 Alcohol dependence with withdrawal, unspecified; R26.81 Unsteadiness on feet; I10 Essential (primary) hypertension; E87.6 Hypokalemia; R45.1 Restlessness and agitation; I48.0 Paroxysmal atrial fibrillation; M19.90 Unspecified osteoarthritis, unspecified site; F12.20 Cannabis dependence, uncomplicated; J44.9 Chronic obstructive pulmonary disease, unspecified; Z71.41 Alcohol abuse counseling and surveillance of alcoholic; Z87.442 Personal history of urinary calculi; Z79.899 Other long term (current) drug therapy; Z90.49 Acquired absence of other specified parts of digestive tract; Z82.49 Family history of ischemic heart disease and other diseases of the circulatory system
CPT/HCPCS: 36415; 70450; 80053; 80307; 80320; 81001; 82040; 82150; 83036; 83690; 83735; 84100; 84439; 84443; 84484; 85007; 85025; 93005; 93010; 96365; 96366; 96367; 99406; G0378; G0480; J1630; J1650; J1953; J2060; J2405; J3246; J3411; J7030; J7042

== ENCOUNTER 2019-02-15 06:32 | Observation (INO) | payer MEDICARE ==
--- NOTE | 2019-02-15 06:53 | Emergency Department Report ---
ED General Adult HPI - General Chief complaint: Seizure Stated complaint: SEIZURE Time Seen by Provider: 02/15/19 06:51 Source: EMS Mode of arrival: Stretcher Limitations: Altered Mental Status - History of Present Illness Initial comments: Patient presents to the emergency department via EMS for seizure activity and irregular heartbeat. Patient states he has a history of seizures but does not have a history of irregular heart rhythm. Patient denies any chest pain, shows breath, or headache. Upon patient's arrival his initial heart rate was 177 bpm and the rhythm was A. fib with RVR -: Sudden Severity scale (0 -10): 0 Consistency: constant Improves with: none Worsens with: none Associated Symptoms: denies other symptoms Treatments Prior to Arrival: none - Related Data Home Medications Medication Instructions Recorded Confirmed Last Taken Lisinopril 5 mg PO QDAY 06/22/18 11/09/18 Unknown Spiriva 7.5 mcg IH BID 06/22/18 11/09/18 Unknown Thiamine [Vitamin B-1] 100 mg PO QDAY 06/22/18 11/09/18 Unknown amLODIPine [Norvasc] 10 mg PO QDAY 06/22/18 11/09/18 Unknown guaiFENesin [Guaifenesin] 400 mg PO TID 06/22/18 11/09/18 Unknown Previous Rx's Medication Instructions Recorded Last Taken Type Folic Acid [Folvite] 1 mg PO QDAY #30 tablet 01/22/18 Unknown Rx Metoprolol [Lopressor TAB] 25 mg PO TID #90 tablet 01/22/18 Unknown Rx levETIRAcetam 750 mg PO BID #60 11/12/18 Unknown Rx Allergies Allergy/AdvReac Type Severity Reaction Status Date / Time No Known Allergies Allergy Verified 04/25/17 19:46 ED Review of Systems ROS: Stated complaint: SEIZURE Other details as noted in HPI Comment: All other systems reviewed and negative Constitutional: denies: chills, fever Eyes: denies: eye pain, eye discharge, vision change ENT: denies: ear pain, throat pain Respiratory: denies: cough, shortness of breath, wheezing Cardiovascular: denies: chest pain, palpitations Endocrine: no symptoms reported Gastrointestinal: denies: abdominal pain, nausea, diarrhea Genitourinary: denies: urgency, dysuria Musculoskeletal: denies: back pain, joint swelling, arthralgia Skin: denies: rash, lesions Neurological: denies: headache, weakness, paresthesias Psychiatric: denies: anxiety, depression Hematological/Lymphatic: denies: easy bleeding, easy bruising ED Past Medical Hx - Past Medical History Hx Hypertension: Yes Hx Heart Attack/AMI: No Hx Diabetes: No Hx Deep Vein Thrombosis: No Hx Pulmonary Embolism: No Hx Liver Disease: Yes Hx Renal Disease: No Hx Sickle Cell Disease: No Hx Arthritis: Yes 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 TBI - Surgical History Hx Coronary Stent: No Hx Pacemaker: No Hx Internal Defibrillator: No Hx Appendectomy: Yes Additional Surgical History: Left upper extremity surgery related to trauma - Social History Smoking Status: Never Smoker - Medications Home Medications: Home Medications Medication Instructions Recorded Confirmed Last Taken Type Folic Acid [Folvite] 1 mg PO QDAY #30 tablet 01/22/18 11/09/18 Unknown Rx Metoprolol [Lopressor TAB] 25 mg PO TID #90 tablet 01/22/18 11/09/18 Unknown Rx Lisinopril 5 mg PO QDAY 06/22/18 11/09/18 Unknown History Spiriva 7.5 mcg IH BID 06/22/18 11/09/18 Unknown History Thiamine [Vitamin B-1] 100 mg PO QDAY 06/22/18 11/09/18 Unknown History amLODIPine [Norvasc] 10 mg PO QDAY 06/22/18 11/09/18 Unknown History guaiFENesin [Guaifenesin] 400 mg PO TID 06/22/18 11/09/18 Unknown History levETIRAcetam 750 mg PO BID #60 11/12/18 Unknown Rx ED Physical Exam - General Limitations: Altered Mental Status General appearance: alert, in no apparent distress - Head Head exam: Present: atraumatic, normocephalic - Eye Eye exam: Present: normal appearance - ENT ENT exam: Present: mucous membranes moist - Neck Neck exam: Present: normal inspection - Respiratory Respiratory exam: Present: normal lung sounds bilaterally. Absent: respiratory distress, wheezes, rales - Cardiovascular Cardiovascular Exam: Present: normal rhythm, tachycardia, irregular rhythm. Absent: systolic murmur, diastolic murmur, rubs, gallop - GI/Abdominal GI/Abdominal exam: Present: soft, normal bowel sounds. Absent: distended, tenderness - Rectal Rectal exam: Present: deferred - Extremities Exam Extremities exam: Present: normal inspection - Back Exam Back exam: Present: normal inspection - Neurological Exam Neurological exam: Present: alert, oriented X3, CN II-XII intact. Absent: motor sensory deficit - Psychiatric Psychiatric exam: Present: normal affect, normal mood - Skin Skin exam: Present: warm, dry, intact, normal color. Absent: rash ED Course Vital Signs 02/15/19 02/15/19 02/15/19 03:59 04:00 06:38 Temperature Pulse Rate 154 H Respiratory 14 Rate Blood Pressure 113/68 113/68 120/70 O2 Sat by Pulse 100 100 76 L Oximetry 02/15/19 02/15/19 02/15/19 06:42 06:47 07:31 Temperature 97.5 F L Pulse Rate 141 H 96 H Respiratory 16 16 17 Rate Blood Pressure 84/60 92/59 O2 Sat by Pulse 94 96 Oximetry 02/15/19 02/15/19 02/15/19 08:01 08:31 09:01 Temperature Pulse Rate 102 H 96 H 107 H Respiratory 18 16 16 Rate Blood Pressure 120/73 110/80 128/83 O2 Sat by Pulse 96 97 99 Oximetry 02/15/19 02/15/19 02/15/19 09:31 10:01 10:16 Temperature Pulse Rate 106 H 103 H 105 H Respiratory 20 17 Rate Blood Pressure 130/84 133/86 133/86 O2 Sat by Pulse 99 96 Oximetry ED Medical Decision Making - Lab Data Result diagrams: 02/15/19 07:17 02/15/19 07:17 Lab Results 02/15/19 02/15/19 02/15/19 Range/Units 06:45 07:17 07:17 WBC 5.4 (4.5-11.0) K/mm3 RBC 5.09 H (3.65-5.03) M/mm3 Hgb 14.5 (11.8-15.2) gm/dl Hct 44.0 (35.5-45.6) % MCV 86 (84-94) fl MCH 28 (28-32) pg MCHC 33 (32-34) % RDW 16.8 H (13.2-15.2) % Plt Count 360 (140-440) K/mm3 Lymph % (Auto) 32.7 (13.4-35.0) % [place] % (Auto) 7.0 (0.0-7.3) % Eos % (Auto) 3.3 (0.0-4.3) % Baso % (Auto) 1.6 (0.0-1.8) % Lymph # 1.8 (1.2-5.4) K/mm3 [place] # 0.4 (0.0-0.8) K/mm3 Eos # 0.2 (0.0-0.4) K/mm3 Baso # 0.1 (0.0-0.1) K/mm3 Seg Neutrophils % 55.4 (40.0-70.0) % Seg Neutrophils # 3.0 (1.8-7.7) K/mm3 PT 13.6 (12.2-14.9) Sec. INR 1.07 (0.87-1.13) APTT 25.5 (24.2-36.6) Sec. Sodium (137-145) mmol/L Potassium (3.6-5.0) mmol/L Chloride (98-107) mmol/L Carbon Dioxide (22-30) mmol/L Anion Gap mmol/L BUN (9-20) mg/dL Creatinine (0.8-1.5) mg/dL Estimated GFR ml/min BUN/Creatinine Ratio % Glucose (75-100) mg/dL POC Glucose 99 (70-105) Calcium (8.4-10.2) mg/dL Phosphorus (2.5-4.5) mg/dL Magnesium (1.7-2.3) mg/dL Total Bilirubin (0.1-1.2) mg/dL AST (5-40) units/L ALT (7-56) units/L Alkaline Phosphatase (35-129) units/L Troponin T (0.00-0.029) ng/mL NT-Pro-B Natriuret Pep (0-900) pg/mL Total Protein (6.3-8.2) g/dL Albumin (3.9-5) g/dL Albumin/Globulin Ratio % TSH (0.270-4.200) mlU/mL Thyroxine (T4) (4.0-12.0) ug/dL 02/15/19 02/15/19 02/15/19 Range/Units 07:17 07:17 07:17 WBC (4.5-11.0) K/mm3 RBC (3.65-5.03) M/mm3 Hgb (11.8-15.2) gm/dl Hct (35.5-45.6) % MCV (84-94) fl MCH (28-32) pg MCHC (32-34) % RDW (13.2-15.2) % Plt Count (140-440) K/mm3 Lymph % (Auto) (13.4-35.0) % [place] % (Auto) (0.0-7.3) % Eos % (Auto) (0.0-4.3) % Baso % (Auto) (0.0-1.8) % Lymph # (1.2-5.4) K/mm3 [place] # (0.0-0.8) K/mm3 Eos # (0.0-0.4) K/mm3 Baso # (0.0-0.1) K/mm3 Seg Neutrophils % (40.0-70.0) % Seg Neutrophils # (1.8-7.7) K/mm3 PT (12.2-14.9) Sec. INR (0.87-1.13) APTT (24.2-36.6) Sec. Sodium 145 (137-145) mmol/L Potassium 4.4 (3.6-5.0) mmol/L Chloride 104.3 (98-107) mmol/L Carbon Dioxide 19 L (22-30) mmol/L Anion Gap 26 mmol/L BUN 17 (9-20) mg/dL Creatinine 1.2 (0.8-1.5) mg/dL Estimated GFR > 60 ml/min BUN/Creatinine Ratio 14 % Glucose 102 H (75-100) mg/dL POC Glucose (70-105) Calcium 10.1 (8.4-10.2) mg/dL Phosphorus 2.50 (2.5-4.5) mg/dL Magnesium 2.20 (1.7-2.3) mg/dL Total Bilirubin 1.00 (0.1-1.2) mg/dL AST 19 (5-40) units/L ALT 8 (7-56) units/L Alkaline Phosphatase 79 (35-129) units/L Troponin T < 0.010 (0.00-0.029) ng/mL NT-Pro-B Natriuret Pep (0-900) pg/mL Total Protein 8.2 (6.3-8.2) g/dL Albumin 4.6 (3.9-5) g/dL Albumin/Globulin Ratio 1.3 % TSH 0.274 (0.270-4.200) mlU/mL Thyroxine (T4) 7.0 (4.0-12.0) ug/dL 02/15/19 02/15/19 Range/Units 07:17 08:51 WBC (4.5-11.0) K/mm3 RBC (3.65-5.03) M/mm3 Hgb (11.8-15.2) gm/dl Hct (35.5-45.6) % MCV (84-94) fl MCH (28-32) pg MCHC (32-34) % RDW (13.2-15.2) % Plt Count (140-440) K/mm3 Lymph % (Auto) (13.4-35.0) % [place] % (Auto) (0.0-7.3) % Eos % (Auto) (0.0-4.3) % Baso % (Auto) (0.0-1.8) % Lymph # (1.2-5.4) K/mm3 [place] # (0.0-0.8) K/mm3 Eos # (0.0-0.4) K/mm3 Baso # (0.0-0.1) K/mm3 Seg Neutrophils % (40.0-70.0) % Seg Neutrophils # (1.8-7.7) K/mm3 PT (12.2-14.9) Sec. INR (0.87-1.13) APTT (24.2-36.6) Sec. Sodium (137-145) mmol/L Potassium (3.6-5.0) mmol/L Chloride (98-107) mmol/L Carbon Dioxide (22-30) mmol/L Anion Gap mmol/L BUN (9-20) mg/dL Creatinine (0.8-1.5) mg/dL Estimated GFR ml/min BUN/Creatinine Ratio % Glucose (75-100) mg/dL POC Glucose (70-105) Calcium (8.4-10.2) mg/dL Phosphorus (2.5-4.5) mg/dL Magnesium (1.7-2.3) mg/dL Total Bilirubin (0.1-1.2) mg/dL AST (5-40) units/L ALT (7-56) units/L Alkaline Phosphatase (35-129) units/L Troponin T 0.023 (0.00-0.029) ng/mL NT-Pro-B Natriuret Pep 86.03 (0-900) pg/mL Total Protein (6.3-8.2) g/dL Albumin (3.9-5) g/dL Albumin/Globulin Ratio % TSH (0.270-4.200) mlU/mL Thyroxine (T4) (4.0-12.0) ug/dL - Radiology Data Radiology results: report reviewed - Medical Decision Making IV Cardizem given results discussed with patient Critical Care Time: Yes Critical care time in (mins) excluding proc time.: 35 Critical care attestation.: If time is entered above; I have spent that time in minutes in the direct care of this critically ill patient, excluding procedure time. ED Disposition Clinical Impression: Afib, Seizure Disposition: DC-09 OP ADMIT IP TO THIS HOSP Is pt being admited?: Yes Does the pt Need Aspirin: Yes Condition: Fair Referrals: [facility] [Other] - 3-5 Days
[2019-02-15] MEDS ORDERED: NACL 0.9% 1000 ML 1,000 ML IV ONE (06:55)
[2019-02-15] MEDS ORDERED: CARDIZEM IV ONE ×2 (06:55→10:07)
[2019-02-15 07:29] LABS: Basophils # (Auto) 0.1 K/mm3 (0.0-0.1); Basophils % (Auto) 1.6 % (0.0-1.8); Eosinophils # (Auto) 0.2 K/mm3 (0.0-0.4); Eosinophils % (Auto) 3.3 % (0.0-4.3); Hemoglobin 14.5 gm/dl (11.8-15.2); Lymphocytes # (Auto) 1.8 K/mm3 (1.2-5.4); Lymphocytes % (Auto) 32.7 % (13.4-35.0); Mean Corpuscular HGB Conc 33 % (32-34); Mean Corpuscular Volume 86 fl (84-94); Monocytes # (Auto) 0.4 K/mm3 (0.0-0.8); Platelet Count 360 K/mm3 (140-440); Red Blood Count 5.09 M/mm3 (3.65-5.03); Red Cell Distribution Width 16.8 % (13.2-15.2)
--- NOTE | 2019-02-15 07:35 | XRay Report ---
CHEST 1 VIEW upright portable [id number] INDICATION / CLINICAL INFORMATION: afib. COMPARISON: 01/17/2018 FINDINGS: SUPPORT DEVICES: None HEART / MEDIASTINUM: No significant abnormality. LUNGS / PLEURA: No significant pulmonary or pleural abnormality. No pneumothorax. ADDITIONAL FINDINGS: No significant additional findings. IMPRESSION: No significant acute abnormality Signer Name: Sami Castillo MD Signed: 02/15/2019 7:31 AM Workstation Name: [id number]
[2019-02-15 07:39] LABS: Partial Thromboplastin Time 25.5 Sec. (24.2-36.6)
[2019-02-15 07:43] LABS: INR 1.07 (0.87-1.13)
[2019-02-15] MEDS ORDERED: KEPPRA PO ONE (07:44)
[2019-02-15 07:52] LABS: Alanine Aminotransferase 8 units/L (7-56); Albumin 4.6 g/dL (3.9-5); BUN/Creatinine Ratio 14; Blood Urea Nitrogen 17 mg/dL (9-20); Calcium 10.1 mg/dL (8.4-10.2); Hemolysis Index 16
[2019-02-15 11:17] LABS: Bacteria,Urine 1+ /HPF (Negative); Bilirubin,Urine NEG (Negative); Blood,Urine SM (Negative); Color,Urine Yellow (Yellow); Mucus,Urine FEW /HPF; Protein,Urine <15 mg/dL mg/dL (Negative); Urobilinogen,Urine < 2.0 mg/dL (<2.0)
[2019-02-15 11:24] LABS: Amphetamine Screen,Urine PRESUMPTIVE NEGATIVE; Benzodiazepines Screen,Urine PRESUMPTIVE NEGATIVE; Cocaine Screen,Urine PRESUMPTIVE NEGATIVE; Methadone Screen,Urine PRESUMPTIVE NEGATIVE; Opiate Screen,Urine PRESUMPTIVE NEGATIVE
[2019-02-15] MEDS ORDERED: SODIUM CHLORIDE FLUSH SYRINGE 10 ML IV PRN (11:26)
[2019-02-15] MEDS ORDERED: TYLENOL PO PRN (11:26)
[2019-02-15] MEDS ORDERED: ZOFRAN IV PRN (11:26)
[2019-02-15 11:38] LABS: Cannabinoid Screen,Urine PRESUMPTIVE POSITIVE
[2019-02-15] MEDS ORDERED: HEPARIN/ 0.45% NACL-25,000 UNIT/500 ML 25,000 UNIT/500 ML BAG IV SCH (12:00)
[2019-02-15] MEDS ORDERED: ROBITUSSIN PO PRN (12:06)
[2019-02-15 12:14] LABS: Hematocrit 38.5 % (35.5-45.6); Hemoglobin 12.5 gm/dl (11.8-15.2)
[2019-02-15 12:24] LABS: INR 1.11 (0.87-1.13)
[2019-02-15] MEDS: ROBITUSSIN PO SCH ×2 (13:03→22:09)
[2019-02-15] MEDS: LOPRESSOR PO SCH ×2 (13:04→21:45)
--- NOTE | 2019-02-15 13:19 | History and Physical Report ---
History of Present Illness Date of examination: 02/15/19 Date of admission: 02/15/19 10:32 Chief complaint: Seizure History of present illness: 73-year-old -[place] male with past medical history significant for seizure, hemorrhagic CVA, paroxysmal A. fib, alcohol abuse presents to the emergency department with complaints of seizures that happened this morning. Patient said he does not know what happened while he was asleep he'll then call 911 and the patient presented to the ER. Patient wake up when the EMS arrived in house and was confused, but continued to urine and feces. Patient denied any headache, chest pain. In the emergency department patient was given antiseizure medications, patient become, oriented in no further seizure episode. While in the ED EKG was done and showed that the patient is in A. fib with RVR. Cardiology was consulted and recommended to admit the patient. Rate was controlled. REVIEW OF SYSTEMS: GENERAL: no weight change, no fatigue, no fever HEAD: no head ache EYES: no blurry vision, no acute visual loss EARS: no hearing loss, no discharge, no earache NOSE: no stuffiness, no sneezing, no discharge MOUTH, THROAT AND NECK: no bleeding gums, no sore throat, no swollen neck CARDIAC: Palpitations. RESPIRATORY: no shortness of breath, no wheeze, no cough, no sputum, no hemoptysis, no asthma GI: no decreased appetite, no nausea, no vomiting, no dysphagia, no diarrhea, no constipation, no abdominal pain URINARY: no change in frequency, no urgency, no polyuria, no hematuria, no incontinence MUSCULOSKELETAL: no muscle weakness, no pain, no joint stiffness NEUROLOGIC: Seizure episode. HEMATOLOGIC: no anemia, no easy bruising SKIN: no rashes ENDOCRINE: no heat/cold intolerance, no polyuria, no polydipsia, no thyroid problems, no diabetes PSYCHIATRIC: no anxiety, no depression, no suicidal ideations Past History Past Medical History: atrial fib, hypertension, seizures, stroke Past Surgical History: No surgical history Social history: smoking (1 pack over 3 days), alcohol abuse (social), full code. denies: prescription drug abuse, IV drug use Family history: denies: cancer, hypertension, stroke Medications and Allergies Allergies Allergy/AdvReac Type Severity Reaction Status Date / Time No Known Allergies Allergy Verified 04/25/17 19:46 Home Medications Medication Instructions Recorded Confirmed Last Taken Type Folic Acid [Folvite] 1 mg PO QDAY #30 tablet 01/22/18 02/15/19 02/14/19 Rx Metoprolol [Lopressor TAB] 25 mg PO TID #90 tablet 01/22/18 02/15/19 02/14/19 Rx Lisinopril 5 mg PO QDAY 06/22/18 02/15/19 02/14/19 History Spiriva 7.5 mcg IH BID 06/22/18 02/15/19 02/14/19 History Thiamine [Vitamin B-1] 100 mg PO QDAY 06/22/18 02/15/19 02/14/19 History amLODIPine [Norvasc] 10 mg PO QDAY 06/22/18 02/15/19 02/14/19 History guaiFENesin [Guaifenesin] 400 mg PO TID 06/22/18 02/15/19 02/14/19 History levETIRAcetam 750 mg PO BID #60 11/12/18 02/15/19 02/14/19 Rx Active Meds: Active Medications Acetaminophen (Tylenol) 650 mg PO Q4H PRN PRN Reason: Pain MILD(1-3)/Fever >100.5/PAULINO Amlodipine Besylate (Norvasc) 10 mg PO QDAY [facility] Docusate Sodium (Colace) 100 mg PO BID [facility] Famotidine (Pepcid) 10 mg PO BID [facility] Folic Acid (Folvite) 1 mg PO QDAY [facility] Guaifenesin (Robitussin) 400 mg PO TID [facility] Last Admin: 02/15/19 13:03 Dose: 400 mg Documented by: Heparin Sodium/Sodium Chloride (Heparin/ 0.45% Nacl-25,000 Unit/500 Ml) 25,000 unit in 500 mls @ 23 mls/hr IV TITR [facility]; Protocol Last Admin: 02/15/19 12:54 Dose: 1,150 units/hr, 23 mls/hr Documented by: Levetiracetam (Keppra) 750 mg PO BID [facility] Lisinopril (Zestril) 5 mg PO QDAY [facility] Metoprolol Tartrate (Lopressor) 25 mg PO TID [facility] Last Admin: 02/15/19 13:04 Dose: 25 mg Documented by: Miscellaneous Medication (Spiriva) 7.5 mcg IH BID [facility] Ondansetron HCl (Zofran) 4 mg IV Q8H PRN PRN Reason: Nausea And Vomiting Sodium Chloride (Sodium Chloride Flush Syringe 10 Ml) 10 ml IV BID [facility] Sodium Chloride (Sodium Chloride Flush Syringe 10 Ml) 10 ml IV PRN PRN PRN Reason: LINE FLUSH Thiamine HCl (Vitamin B-1) 100 mg PO QDAY [facility] Exam - Physical Exam Narrative exam: Not in cardiopulmonary distress. The patient appeared well nourished and normally developed. Vital signs as documented. Head exam is unremarkable. No scleral icterus . Neck is without jugular venous distension, thyromegaly, or carotid bruits. Lungs are clear to auscultation. Cardiac exam reveals irregular rate and Rhythm. Abdominal exam reveals normal bowel sounds, no masses, no organomegaly and no aortic enlargement. Extremities are nonedematous and both femoral and pedal pulses are normal. [employer]: Alert and oriented 3. No focal weakness. - Constitutional Vitals: Temp Pulse Resp BP Pulse Ox 98.4 F 64 15 166/80 98 02/15/19 11:33 02/15/19 13:04 02/15/19 11:00 02/15/19 13:04 02/15/19 11:00 Results - Labs CBC & Chem 7: 02/15/19 11:59 02/15/19 07:17 Labs: Laboratory Last Values WBC 5.4 K/mm3 (4.5-11.0) 02/15/19 07:17 RBC 5.09 M/mm3 (3.65-5.03) H 02/15/19 07:17 Hgb 12.5 gm/dl (11.8-15.2) 02/15/19 11:59 Hct 38.5 % (35.5-45.6) 02/15/19 11:59 MCV 86 fl (84-94) 02/15/19 07:17 MCH 28 pg (28-32) 02/15/19 07:17 MCHC 33 % (32-34) 02/15/19 07:17 RDW 16.8 % (13.2-15.2) H 02/15/19 07:17 Plt Count 324 K/mm3 (140-440) 02/15/19 11:59 Lymph % (Auto) 32.7 % (13.4-35.0) 02/15/19 07:17 [place] % (Auto) 7.0 % (0.0-7.3) 02/15/19 07:17 Eos % (Auto) 3.3 % (0.0-4.3) 02/15/19 07:17 Baso % (Auto) 1.6 % (0.0-1.8) 02/15/19 07:17 Lymph # 1.8 K/mm3 (1.2-5.4) 02/15/19 07:17 [place] # 0.4 K/mm3 (0.0-0.8) 02/15/19 07:17 Eos # 0.2 K/mm3 (0.0-0.4) 02/15/19 07:17 Baso # 0.1 K/mm3 (0.0-0.1) 02/15/19 07:17 Seg Neutrophils % 55.4 % (40.0-70.0) 02/15/19 07:17 Seg Neutrophils # 3.0 K/mm3 (1.8-7.7) 02/15/19 07:17 PT 14.0 Sec. (12.2-14.9) 02/15/19 11:59 INR 1.11 (0.87-1.13) 02/15/19 11:59 APTT 28.0 Sec. (24.2-36.6) 02/15/19 11:59 Sodium 145 mmol/L (137-145) 02/15/19 07:17 Potassium 4.4 mmol/L (3.6-5.0) 02/15/19 07:17 Chloride 104.3 mmol/L (98-107) 02/15/19 07:17 Carbon Dioxide 19 mmol/L (22-30) L 02/15/19 07:17 26 mmol/L 02/15/19 07:17 BUN 17 mg/dL (9-20) 02/15/19 07:17 1.2 mg/dL (0.8-1.5) 02/15/19 07:17 Estimated GFR > 60 ml/min 02/15/19 07:17 14 % 02/15/19 07:17 Glucose 102 mg/dL (75-100) H 02/15/19 07:17 POC Glucose 99 (70-105) 02/15/19 06:45 Calcium 10.1 mg/dL (8.4-10.2) 02/15/19 07:17 Phosphorus 2.50 mg/dL (2.5-4.5) 02/15/19 07:17 Magnesium 2.20 mg/dL (1.7-2.3) 02/15/19 07:17 1.00 mg/dL (0.1-1.2) 02/15/19 07:17 AST 19 units/L (5-40) 02/15/19 07:17 ALT 8 units/L (7-56) 02/15/19 07:17 79 units/L (35-129) 02/15/19 07:17 0.023 ng/mL (0.00-0.029) 02/15/19 08:51 NT-Pro-B Natriuret Pep 86.03 pg/mL (0-900) 02/15/19 07:17 8.2 g/dL (6.3-8.2) 02/15/19 07:17 4.6 g/dL (3.9-5) 02/15/19 07:17 1.3 % 02/15/19 07:17 TSH 0.274 mlU/mL (0.270-4.200) 02/15/19 07:17 7.0 ug/dL (4.0-12.0) 02/15/19 07:17 Yellow (Yellow) 02/15/19 11:01 Clear (Clear) 02/15/19 11:01 5.0 (5.0-7.0) 02/15/19 11:01 Ur Specific [place] 1.013 (1.003-1.030) 02/15/19 11:01 <15 mg/dl mg/dL (Negative) 02/15/19 11:01 Neg mg/dL (Negative) 02/15/19 11:01 Tr mg/dL (Negative) 02/15/19 11:01 Sm (Negative) 02/15/19 11:01 Neg (Negative) 02/15/19 11:01 Neg (Negative) 02/15/19 11:01 < 2.0 mg/dL (<2.0) 02/15/19 11:01 Ur Leukocyte Esterase Neg (Negative) 02/15/19 11:01 1.0 /HPF (0.0-6.0) 02/15/19 11:01 3.0 /HPF (0.0-6.0) 02/15/19 11:01 U Epithel Cells (Auto) < 1.0 /HPF (0-13.0) 02/15/19 11:01 1+ /HPF (Negative) 02/15/19 11:01 Few /HPF 02/15/19 11:01 Presumptive negative 02/15/19 11:01 Presumptive negative 02/15/19 11:01 Ur Barbiturates Screen Presumptive negative 02/15/19 11:01 Ur Phencyclidine Scrn Presumptive negative 02/15/19 11:01 Ur Amphetamines Screen Presumptive negative 02/15/19 11:01 U Benzodiazepines Scrn Presumptive negative 02/15/19 11:01 Presumptive negative 02/15/19 11:01 U Marijuana (THC) Screen Presumptive positive 02/15/19 11:01 Disclamer 02/15/19 11:01 Assessment and Plan Assessment and plan: Atrial fibrillation with RVR, paroxysmal - Patient was given Cardizem and rate was controlled - Patient is on metoprolol at home and continued that - Patient was not on anticoagulation because of history of hemorrhagic stroke - Cardiology consulted Seizure disorder - Patient went to continue with Keppra, I will increase the dose History of hemorrhagic stroke - Stable History of alcohol abuse; patient said he drink one or 2 drinks once in a while Smoking cessation; patient was counseled about cessation of smoking DVT prophylaxis -On SCD because of history of hemorrhagic stroke Disposition - Admit to telemetry floor Advance Directives: Yes VTE prophylaxis?: Mechanical Contraindication Mechanical VTE Prophylaxis: Contraindicated Plan of care discussed with patient/family: Yes
--- NOTE | 2019-02-15 13:45 | Consultation ---
History of Present Illness Consult date: 02/15/19 Consult reason: atrial fibrillation History of present illness: This is a 73-year old male who presented to the emergency department with seizures this morning. On presentation, he was found to be in rapid atrial fibrillation which was treated with intravenous Diltiazem. He has since reverted to a stable sinus rhythm. There are no complaints of chest pain, shortness of breath or palpitations. Patient has a history of paroxysmal atrial fibrillation, not on anticoagulation due to previous subarachnoid hemorrhage. Patient does not have a geography head but reports he is followed by the [facility]. His latest cardiac workup shows a normal myocardial perfusion stress test and a normal left ventricular systolic function, ejection fraction 55% by echocardiogram. Co-morbidities includes seizure disorder, hypertension and some level of alcohol addiction. Past History Past Medical History: atrial fib, hypertension, seizures, stroke Past Surgical History: No surgical history Social history: smoking (1 pack over 3 days), alcohol abuse (social), full code. denies: prescription drug abuse, IV drug use Family history: denies: cancer, hypertension, stroke Medications and Allergies Allergies Allergy/AdvReac Type Severity Reaction Status Date / Time No Known Allergies Allergy Verified 04/25/17 19:46 Home Medications Medication Instructions Recorded Confirmed Last Taken Type Folic Acid [Folvite] 1 mg PO QDAY #30 tablet 01/22/18 02/15/19 02/14/19 Rx Metoprolol [Lopressor TAB] 25 mg PO TID #90 tablet 01/22/18 02/15/19 02/14/19 Rx Lisinopril 5 mg PO QDAY 06/22/18 02/15/19 02/14/19 History Spiriva 7.5 mcg IH BID 06/22/18 02/15/19 02/14/19 History Thiamine [Vitamin B-1] 100 mg PO QDAY 06/22/18 02/15/19 02/14/19 History amLODIPine [Norvasc] 10 mg PO QDAY 06/22/18 02/15/19 02/14/19 History guaiFENesin [Guaifenesin] 400 mg PO TID 06/22/18 02/15/19 02/14/19 History levETIRAcetam 750 mg PO BID #60 11/12/18 02/15/19 02/14/19 Rx Active Meds: Active Medications Acetaminophen (Tylenol) 650 mg PO Q4H PRN PRN Reason: Pain MILD(1-3)/Fever >100.5/PAULINO Amlodipine Besylate (Norvasc) 10 mg PO QDAY [facility] Docusate Sodium (Colace) 100 mg PO BID [facility] Famotidine (Pepcid) 10 mg PO BID [facility] Folic Acid (Folvite) 1 mg PO QDAY [facility] Guaifenesin (Robitussin) 400 mg PO TID [facility] Last Admin: 02/15/19 13:03 Dose: 400 mg Documented by: Heparin Sodium/Sodium Chloride (Heparin/ 0.45% Nacl-25,000 Unit/500 Ml) 25,000 unit in 500 mls @ 23 mls/hr IV TITR [facility]; Protocol Last Admin: 02/15/19 12:54 Dose: 1,150 units/hr, 23 mls/hr Documented by: Levetiracetam (Keppra) 750 mg PO BID [facility] Lisinopril (Zestril) 5 mg PO QDAY [facility] Metoprolol Tartrate (Lopressor) 25 mg PO TID [facility] Last Admin: 02/15/19 13:04 Dose: 25 mg Documented by: Miscellaneous Medication (Spiriva) 7.5 mcg IH BID [facility] Nicotine (Habitrol) 14 mg TD ONCE ONE Stop: 02/15/19 14:26 Ondansetron HCl (Zofran) 4 mg IV Q8H PRN PRN Reason: Nausea And Vomiting Sodium Chloride (Sodium Chloride Flush Syringe 10 Ml) 10 ml IV BID [facility] Sodium Chloride (Sodium Chloride Flush Syringe 10 Ml) 10 ml IV PRN PRN PRN Reason: LINE FLUSH Thiamine HCl (Vitamin B-1) 100 mg PO QDAY [facility] Physical Examination Vital Signs BP Pulse Ox 113/68 100 02/15/19 03:59 02/15/19 03:59 General appearance: no acute distress HEENT: Positive: PERRL Neck: Positive: trachea midline Cardiac: Positive: Reg Rate and Rhythm Lungs: Positive: Decreased Breath Sounds Neuro: Positive: Weakness Extremities: Absent: edema Results 02/15/19 11:59 02/15/19 07:17 Cardiac Enzymes 02/15/19 Range/Units 07:17 AST 19 (5-40) units/L Coagulation 02/15/19 02/15/19 Range/Units 07:17 11:59 PT 13.6 14.0 (12.2-14.9) Sec. INR 1.07 1.11 (0.87-1.13) APTT 25.5 28.0 (24.2-36.6) Sec. CBC 02/15/19 02/15/19 Range/Units 07:17 11:59 WBC 5.4 (4.5-11.0) K/mm3 RBC 5.09 H (3.65-5.03) M/mm3 Hgb 14.5 12.5 (11.8-15.2) gm/dl Hct 44.0 38.5 (35.5-45.6) % Plt Count 360 324 (140-440) K/mm3 Lymph # 1.8 (1.2-5.4) K/mm3 Atkinson # 0.4 (0.0-0.8) K/mm3 Eos # 0.2 (0.0-0.4) K/mm3 Baso # 0.1 (0.0-0.1) K/mm3 Comprehensive Metabolic Panel 02/15/19 Range/Units 07:17 Sodium 145 (137-145) mmol/L Potassium 4.4 (3.6-5.0) mmol/L Chloride 104.3 (98-107) mmol/L Carbon Dioxide 19 L (22-30) mmol/L BUN 17 (9-20) mg/dL Creatinine 1.2 (0.8-1.5) mg/dL Glucose 102 H (75-100) mg/dL Calcium 10.1 (8.4-10.2) mg/dL AST 19 (5-40) units/L ALT 8 (7-56) units/L Alkaline Phosphatase 79 (35-129) units/L Total Protein 8.2 (6.3-8.2) g/dL Albumin 4.6 (3.9-5) g/dL Assessment and Plan Seizure Paroxysmal Afib currently in sinus rhythm. On metoprolol for suppression. not on anticoagulation due to previous subarachnoid hemorrhage. TSH 0.274 Hypertension Hx of alcohol addiction Normal myocardial perfusion stress test done 12/2015. Normal left ventricular systolic function, ejection fraction 55% by echocardiogram 09/2017. Continue medical therapy for suppression of paroxysmal atrial fibrillation.
[2019-02-15] MEDS ORDERED: NON-FORMULARY (Guaifenesin [Guaifenesin] 400 MG) PO SCH (14:00)
[2019-02-15] MEDS ORDERED: HABITROL TD ONE (14:25)
[2019-02-15] MEDS ORDERED: APRESOLINE IV PRN (17:31)
[2019-02-15] MEDS: PEPCID PO SCH (21:44)
[2019-02-15] MEDS: KEPPRA PO SCH (21:45)
[2019-02-15] MEDS: SODIUM CHLORIDE FLUSH SYRINGE 10 ML IV SCH (21:47)
[2019-02-15] MEDS: COLACE PO SCH (21:47)
[2019-02-15] MEDS ORDERED: LEVETIRACETAM 750 MG PO SCH (22:00)
[2019-02-15] MEDS ORDERED: SPIRIVA IH SCH (22:00)
[2019-02-16 06:46] LABS: BUN/Creatinine Ratio 21; Blood Urea Nitrogen 15 mg/dL (9-20); Hemolysis Index 26
[2019-02-16 08:13] VITALS: BP 159/87
[2019-02-16] MEDS ORDERED: ZESTRIL PO SCH (10:00)
[2019-02-16] MEDS ORDERED: VITAMIN B-1 PO SCH (10:00)
[2019-02-16] MEDS ORDERED: FOLVITE PO SCH (10:00)
[2019-02-16] MEDS ORDERED: NORVASC PO SCH (10:00)
[2019-02-16] MEDS ORDERED: NON-FORMULARY (Lisinopril 5 MG) PO SCH (10:00)
--- NOTE | 2019-02-16 10:05 | Discharge Summary ---
Providers - Providers Date of Admission: 02/15/19 10:32 Date of discharge: 02/16/19 Attending physician: OLI PEACE MD 02/15/19 11:29 Consult to Physician [CONS] Routine Comment: Consulting Provider: JOSE RIOS Physician Instructions: Reason For Exam: a.fib with RVR Hospitalization Reason for admission: seizure episode, a.fib with RVR Condition: Fair Hospital course: 73-year-old -[place]i male with past medical history significant for seizure, hemorrhagic CVA, paroxysmal A. fib, alcohol abuse presents to the emergency department with complaints of seizures that happened this morning. Patient said he does not know what happened while he was asleep he'll then call 911 and the patient presented to the ER. Patient wake up when the EMS arrived in house and was confused, but continued to urine and feces. Patient denied any headache, chest pain. In the emergency department patient was given antiseizure medications, patient become, oriented in no further seizure episode. While in the ED EKG was done and showed that the patient is in A. fib with RVR. Cardiology was consulted and recommended to admit the patient. Rate was controlled. Patient was admitted to the floor and was seen by division human resources manager recommended to continue with BB and added amiodarone. Patient is not a candidate for anticoagulation because of his previous hemorrhagic stroke. Patient was in sinus rhythm while he was in the floor. patient didn't have any seizure episode after admission. counselled about medication adherence, f/u with PCP and discharged home in a stable condition. Disposition: - TO HOME OR SELFCARE Time spent for discharge: 32 minutes - Discharge Diagnoses (1) Seizure Status: Acute (2) Atrial fibrillation Status: Chronic Qualifiers: Core Measure Documentation - Palliative Care Palliative Care/ Comfort Measures: Not Applicable - Core Measures Any of the following diagnoses?: none Exam - Physical Exam Narrative exam: Not in cardiopulmonary distress. The patient appeared well nourished and normally developed. Vital signs as documented. Head exam is unremarkable. No scleral icterus . Neck is without jugular venous distension, thyromegaly, or carotid bruits. Lungs are clear to auscultation. Cardiac exam reveals regular rate and Rhythm. Abdominal exam reveals normal bowel sounds, no masses, no organomegaly and no aortic enlargement. Extremities are nonedematous and both femoral and pedal pulses are normal. RESIDENTIAL BUILDING INSPECTOR: Alert and oriented 3. No focal weakness. - Constitutional Vitals: Temp Pulse Resp BP Pulse Ox 97.5 F L 68 18 159/87 97 02/16/19 07:30 02/16/19 04:20 02/16/19 07:30 02/16/19 07:30 02/16/19 04:20 Plan Activity: no restrictions Weight Bearing Status: Full Weight Bearing Diet: low cholesterol, low salt Follow up with: [facility] [Other] - 3-5 Days Prescriptions: Amiodarone [Cordarone 200 MG TAB] 200 mg PO DAILY #30 tab
[2019-02-16] MEDS: PEPCID PO SCH (10:27)
[2019-02-16] MEDS: COLACE PO SCH (10:27)
[2019-02-16] MEDS: KEPPRA PO SCH (10:28)
[2019-02-16] MEDS: SODIUM CHLORIDE FLUSH SYRINGE 10 ML IV SCH (10:29)
[2019-02-16] MEDS ORDERED: K-DUR PO ONE (11:00)
--- NOTE | 2019-02-16 12:17 | Progress Note ---
<PEPPER FERNANDEZ - Last Filed: 02/16/19 12:13> Assessment and Plan Seizure Paroxysmal Afib currently in sinus rhythm. On metoprolol for suppression. not on anticoagulation due to previous subarachnoid hemorrhage. TSH 0.274 Hypertension Hx of alcohol addiction Normal myocardial perfusion stress test done 12/2015. Normal left ventricular systolic function, ejection fraction 55% by echocardiogram 09/2017. Continue metoprolol for suppression of paroxysmal atrial fibrillation. In addition, we will add amiodarone 200 mg daily. Stable cardiac triana. [facility]. Subjective Date of service: 02/16/19 Interval history: Patient has no complaints. Stable sinus rhythm on telemetry. Objective Vital Signs Temp Pulse Resp BP Pulse Ox 02/16/19 07:30 97.5 F L 18 159/87 02/16/19 04:20 98.4 F 68 18 151/80 97 02/15/19 23:36 98.8 F 59 L 18 181/99 100 02/15/19 20:10 66 02/15/19 19:33 98.8 F 66 18 143/74 99 02/15/19 16:50 98.4 F 18 02/15/19 16:47 98.4 F 85 18 143/90 99 02/15/19 16:38 98.0 F 56 L 18 174/95 100 02/15/19 13:04 64 166/80 02/15/19 12:33 98.5 F 65 18 166/80 99 - Physical Examination General: No Apparent Distress HEENT: Positive: PERRL Neck: Positive: trachea midline Cardiac: Positive: Reg Rate and Rhythm Lungs: Positive: Decreased Breath Sounds Neuro: Positive: Weakness Extremities: Absent: edema - Labs and Meds Coagulation 02/15/19 Range/Units 11:59 PT 14.0 (12.2-14.9) Sec. INR 1.11 (0.87-1.13) APTT 28.0 (24.2-36.6) Sec. CBC 02/15/19 Range/Units 11:59 Hgb 12.5 (11.8-15.2) gm/dl Hct 38.5 (35.5-45.6) % Plt Count 324 (140-440) K/mm3 Comprehensive Metabolic Panel 02/16/19 Range/Units 05:53 Sodium 142 (137-145) mmol/L Potassium 3.4 L D (3.6-5.0) mmol/L Chloride 104.1 (98-107) mmol/L Carbon Dioxide 22 (22-30) mmol/L BUN 15 (9-20) mg/dL Creatinine 0.7 L (0.8-1.5) mg/dL Glucose 86 (75-100) mg/dL Calcium 9.0 (8.4-10.2) mg/dL <SANDEEP MCKEON - Last Filed: 02/16/19 14:23> Assessment and Plan I have seen and evaluated the patient and agree with the assessment and plan. Stress test shows Normal myocardial perfusion stress test done 12/2015. Echo shows Normal left ventricular systolic function, ejection fraction 55% 09/2017. Recommend rate control strategy for paroxysmal atrial fibrillation. No anticoagulation due to history of subarrachnoid hemorrhage. Objective Vital Signs Temp Pulse Resp BP Pulse Ox 02/16/19 07:30 97.5 F L 18 159/87 02/16/19 04:20 98.4 F 68 18 151/80 97 02/15/19 23:36 98.8 F 59 L 18 181/99 100 02/15/19 20:10 66 02/15/19 19:33 98.8 F 66 18 143/74 99 02/15/19 16:50 98.4 F 18 02/15/19 16:47 98.4 F 85 18 143/90 99 02/15/19 16:38 98.0 F 56 L 18 174/95 100 - Labs and Meds Comprehensive Metabolic Panel 02/16/19 Range/Units 05:53 Sodium 142 (137-145) mmol/L Potassium 3.4 L D (3.6-5.0) mmol/L Chloride 104.1 (98-107) mmol/L Carbon Dioxide 22 (22-30) mmol/L BUN 15 (9-20) mg/dL Creatinine 0.7 L (0.8-1.5) mg/dL Glucose 86 (75-100) mg/dL Calcium 9.0 (8.4-10.2) mg/dL
== END 2019-02-16 15:10 | disposition home or self-care (01) ==
LOC: ED 06:32 → 2B-ACE 10:32 → 4A 11:19
PROVIDERS: ADMIT Internal Medicine; ATTEND Internal Medicine
DX: I48.0 Paroxysmal atrial fibrillation (principal); G40.909 Epilepsy, unspecified, not intractable, without status epilepticus; I10 Essential (primary) hypertension; M19.90 Unspecified osteoarthritis, unspecified site; J45.909 Unspecified asthma, uncomplicated; K76.9 Liver disease, unspecified; F17.210 Nicotine dependence, cigarettes, uncomplicated; Z86.73 Personal history of transient ischemic attack (TIA), and cerebral infarction without residual deficits; Z87.442 Personal history of urinary calculi; Z90.49 Acquired absence of other specified parts of digestive tract
CPT/HCPCS: 36415; 71045; 80048; 80053; 80307; 81001; 82962; 83735; 83880; 84100; 84436; 84443; 84484; 85014; 85018; 85025; 85049; 85520; 85610; 85730; 93005; 93010; 96374; 96375; 96376; 99291; 99406; G0378; J0360; J1644; J7030; J3246

== ENCOUNTER 2019-03-15 05:48 | Emergency (ER) | payer MEDICARE ==
[2019-03-15] MEDS ORDERED: LORazepam 2 MG/ML VIAL IV PRN ×3 (06:11)
[2019-03-15] MEDS ORDERED: diazePAM 10 MG/2 ML SYRINGE IV ONE (06:11)
[2019-03-15] MEDS ORDERED: levETIRAcetam 1000 MG/NS 0.75% 1,000 MG/100 ML BAG IV ONE ×2 (06:11→06:15)
--- NOTE | 2019-03-15 06:18 | Emergency Department Report ---
ED General Adult HPI - General Chief complaint: Seizure Stated complaint: SEIZURE Time Seen by Provider: 03/15/19 06:00 Source: patient, EMS (ems notes not available at time of chart dictation), RN notes reviewed, old records reviewed Mode of arrival: Stretcher Limitations: Other (postictal, confused) - History of Present Illness Initial comments: This is a 73-year-old gentleman. This patient does not known to this provider previously. Past medical history includes hemorrhagic stroke, paroxysmal A. fib, seizure, alcohol abuse. Patient reportedly had a seizure today. As per verbal report from nursing staff, family contacted 911 for reported seizure. We do not know if there is any trauma. The patient is currently postictal. He does not follow commands. He is awake, but postictal and altered. He is protecting his airway. He is not endorsing any complaints at this time. Family not available at this time for additional information or collateral information. No additional history is available at this time. -: This morning Radiation: other Severity scale (0 -10): 0 Quality: other Consistency: other Improves with: other Worsens with: other Associated Symptoms: other - Related Data Home Medications Medication Instructions Recorded Confirmed Last Taken Lisinopril 5 mg PO QDAY 06/22/18 02/15/19 02/14/19 Spiriva 7.5 mcg IH BID 06/22/18 02/15/19 02/14/19 amLODIPine [Norvasc] 10 mg PO QDAY 06/22/18 02/15/19 02/14/19 guaiFENesin [Guaifenesin] 400 mg PO TID 06/22/18 02/15/19 02/14/19 Previous Rx's Medication Instructions Recorded Last Taken Type Metoprolol [Lopressor TAB] 25 mg PO TID #90 tablet 01/22/18 02/14/19 Rx Amiodarone [Cordarone 200 MG TAB] 200 mg PO DAILY #30 tab 02/16/19 Unknown Rx Folic Acid [Folvite] 1 mg PO QDAY #30 tablet 03/15/19 Unknown Rx Thiamine [Vitamin B-1] 100 mg PO QDAY #30 tab 03/15/19 Unknown Rx chlordiazePOXIDE [Librium] 25 mg PO Q8H PRN #20 capsule 03/15/19 Unknown Rx levETIRAcetam 750 mg PO BID #60 03/15/19 Unknown Rx Allergies Allergy/AdvReac Type Severity Reaction Status Date / Time No Known Allergies Allergy Verified 04/25/17 19:46 ED Review of Systems ROS: Stated complaint: SEIZURE Other details as noted in HPI Comment: Unobtainable due to pts medical conditions ED Past Medical Hx - Past Medical History Hx Hypertension: Yes Hx Heart Attack/AMI: No Hx Diabetes: No Hx Deep Vein Thrombosis: No Hx Pulmonary Embolism: No Hx Liver Disease: Yes Hx Renal Disease: No Hx Sickle Cell Disease: No Hx Arthritis: Yes 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 TBI - Surgical History Hx Coronary Stent: No Hx Pacemaker: No Hx Internal Defibrillator: No Hx Appendectomy: Yes Additional Surgical History: Left upper extremity surgery related to trauma - Social History Smoking Status: Unknown if ever smoked Substance Use Type: Other - Medications Home Medications: Home Medications Medication Instructions Recorded Confirmed Last Taken Type Metoprolol [Lopressor TAB] 25 mg PO TID #90 tablet 01/22/18 02/15/19 02/14/19 Rx Lisinopril 5 mg PO QDAY 06/22/18 02/15/19 02/14/19 History Spiriva 7.5 mcg IH BID 06/22/18 02/15/19 02/14/19 History amLODIPine [Norvasc] 10 mg PO QDAY 06/22/18 02/15/19 02/14/19 History guaiFENesin [Guaifenesin] 400 mg PO TID 06/22/18 02/15/19 02/14/19 History Amiodarone [Cordarone 200 MG TAB] 200 mg PO DAILY #30 tab 02/16/19 Unknown Rx Folic Acid [Folvite] 1 mg PO QDAY #30 tablet 03/15/19 Unknown Rx Thiamine [Vitamin B-1] 100 mg PO QDAY #30 tab 03/15/19 Unknown Rx chlordiazePOXIDE [Librium] 25 mg PO Q8H PRN #20 capsule 03/15/19 Unknown Rx levETIRAcetam 750 mg PO BID #60 03/15/19 Unknown Rx ED Physical Exam - General Limitations: Altered Mental Status General appearance: in no apparent distress, appears intoxicated - Head Head exam: Present: atraumatic, normocephalic - Eye Eye exam: Present: normal appearance, PERRL, EOMI - ENT ENT exam: Present: normal exam, normal orophraynx, mucous membranes moist, normal external ear exam - Neck Neck exam: Present: normal inspection, full ROM. Absent: tenderness, meningismus - Respiratory Respiratory exam: Present: normal lung sounds bilaterally. Absent: respiratory distress - Cardiovascular Cardiovascular Exam: Present: normal rhythm, tachycardia, normal heart sounds. Absent: systolic murmur, diastolic murmur, rubs, gallop - GI/Abdominal GI/Abdominal exam: Present: soft. Absent: distended, tenderness, guarding, rebound, rigid, pulsatile mass - Rectal Rectal exam: Present: deferred - exam: Present: normal inspection External exam: Present: normal external exam - Extremities Exam Extremities exam: Present: normal inspection, full ROM, other (2+ pulses noted in the bilateral upper, lower extremities. Compartments soft. No long bony tenderness. The pelvis is stable.). Absent: pedal edema, joint swelling, calf tenderness - Back Exam Back exam: Present: normal inspection. Absent: tenderness, CVA tenderness (R), CVA tenderness (L), paraspinal tenderness, vertebral tenderness - Neurological Exam Neurological exam: Present: altered, other (presumably postictal. Eyes open spontaneously. Moving 4 extremities spontaneously. Detailed neurologic examination not possible at this time secondary to altered mental status) - Skin Skin exam: Present: warm, dry, intact, normal color. Absent: rash ED Course Vital Signs 03/15/19 03/15/19 03/15/19 05:52 06:00 06:01 Temperature 97.6 F Pulse Rate 112 H 104 H Respiratory 18 21 14 Rate Blood Pressure 125/64 Blood Pressure 125/64 [Left] O2 Sat by Pulse 92 94 Oximetry 03/15/19 03/15/19 03/15/19 06:15 06:45 07:00 Temperature Pulse Rate 103 H 99 H 95 H Respiratory 18 13 18 Rate Blood Pressure 107/55 107/55 95/53 Blood Pressure [Left] O2 Sat by Pulse 98 94 Oximetry 03/15/19 03/15/19 03/15/19 07:15 07:23 07:30 Temperature Pulse Rate 88 91 H 83 Respiratory 16 17 16 Rate Blood Pressure 103/56 105/63 Blood Pressure 104/59 [Left] O2 Sat by Pulse 97 97 97 Oximetry 03/15/19 03/15/19 03/15/19 07:45 08:00 08:15 Temperature Pulse Rate 77 81 68 Respiratory 15 14 14 Rate Blood Pressure 110/63 115/73 124/66 Blood Pressure [Left] O2 Sat by Pulse 97 98 99 Oximetry 03/15/19 03/15/19 03/15/19 08:30 08:45 09:00 Temperature Pulse Rate 66 79 67 Respiratory 14 11 L 15 Rate Blood Pressure 122/72 127/81 121/77 Blood Pressure [Left] O2 Sat by Pulse 98 97 98 Oximetry 03/15/19 03/15/19 03/15/19 09:15 09:30 09:45 Temperature Pulse Rate 65 70 72 Respiratory 16 16 15 Rate Blood Pressure 125/74 119/70 123/68 Blood Pressure [Left] O2 Sat by Pulse 97 99 100 Oximetry 03/15/19 03/15/19 03/15/19 10:00 10:15 10:30 Temperature Pulse Rate 70 70 65 Respiratory 13 16 17 Rate Blood Pressure 131/64 118/81 130/79 Blood Pressure [Left] O2 Sat by Pulse 99 100 100 Oximetry 03/15/19 03/15/19 03/15/19 10:45 11:00 11:15 Temperature Pulse Rate 69 68 78 Respiratory 15 15 16 Rate Blood Pressure 123/71 120/71 124/75 Blood Pressure [Left] O2 Sat by Pulse 100 98 99 Oximetry 03/15/19 03/15/19 03/15/19 11:30 11:46 12:00 Temperature Pulse Rate 69 65 64 Respiratory 14 13 14 Rate Blood Pressure 127/75 127/72 128/72 Blood Pressure [Left] O2 Sat by Pulse 99 100 100 Oximetry 03/15/19 12:15 Temperature Pulse Rate 71 Respiratory 18 Rate Blood Pressure 139/81 Blood Pressure [Left] O2 Sat by Pulse 99 Oximetry - Reevaluation(s) Reevaluation #1: 03/15/19 06:34 Differential diagnosis, including but not limited to: Alcohol withdrawal seizure, breakthrough seizure, medication noncompliance, pneumonia, urinary tract infection, intracranial injury, cervical spine injury, electrolyte derangement Assessment and plan: 73-year-old gentleman with history of seizure, alcohol abuse, alcohol withdrawal seizure, with reported 2-3 episodes of seizure today. The patient is currently afebrile, with reassuring vital signs and is protecting his airway. Appropriate laboratory studies, noncontrast CT scan of the brain, cervical spine, x-ray of the chest, abdomen ordered, in addition to IV fluids, empiric Valium, and Keppra. We will reassess after data points have resulted. Reevaluation #2: 03/15/19 09:03 Urinalysis is reviewed and appreciated. No additional events noted thus far. Initial basic metabolic panel shows CO2 of 5, likely secondary to convulsive event. Patient has been resting comfortable, in no acute distress, without additional convulsive events. Repeat basic metabolic panel has been ordered. Reevaluation #3: 03/15/19 12:39 Patient is reassessed multiple times. He is now awake and alert to name and location. He follows commands. He is somewhat unsteady. He denies physical pain. He's not had any episodes of seizures. Nursing T was instructed to contact family, and to arrange for family pickup. ED Medical Decision Making - Lab Data Result diagrams: 03/15/19 06:01 03/15/19 08:40 Vital Signs 03/15/19 03/15/19 05:52 06:01 Temperature 97.6 F Pulse Rate 112 H Respiratory 18 14 Rate Blood Pressure 125/64 [Left] O2 Sat by Pulse 95 94 Oximetry - EKG Data -: EKG Interpreted by In EKG shows normal: sinus rhythm Rate: tachycardia - EKG Data 03/15/19 06:36 This EKG shows a sinus tachycardia, 104 bpm, normal axis, QTC 471 ms, premature ventricular contractions, left ventricular hypertrophy, motion artifact, no endorsement of chest pain, the EKG is abnormal, the EKG is not consistent with ST elevation myocardial infarction. - Radiology Data Radiology results: pending, report reviewed, image reviewed X-ray of the chest was negative for acute disease. Noncontrast CT scan of the brain and cervical spine are negative for acute disease. Critical care attestation.: If time is entered above; I have spent that time in minutes in the direct care of this critically ill patient, excluding procedure time. ED Disposition Clinical Impression: Seizure Disposition: DC-01 TO HOME OR SELFCARE Is pt being admited?: No Does the pt Need Aspirin: No Condition: Stable Additional Instructions: Do not drive or operate motor vehicles for the next 6 months. Follow up with a primary care doctor or neurology doctor within the next 10 days. Recommend abstinence from alcohol consumption. Take the medications as directed, take the Librium as needed for sensation of alcohol withdrawal. Long-term consumption of alcohol may cause addiction, seizure, disability, paralysis, loss of quality of life. Return to the emergency room right away with new, worsening or different symptoms not present on the initial emergency room evaluation. Referrals: MONTY AGUAYO MD [Staff Physician] - 3-5 Days SHELLY BARFIELD MD [Referring] - 3-5 Days JAYDEN JARRETT MD [Staff Physician] - 3-5 Days
[2019-03-15 06:43] LABS: Basophils # (Auto) 0.1 K/mm3 (0.0-0.1); Eosinophils # (Auto) 0.2 K/mm3 (0.0-0.4); Eosinophils % (Auto) 2.1 % (0.0-4.3); Lymphocytes # (Auto) 4.1 K/mm3 (1.2-5.4); Lymphocytes % (Auto) 35.5 % (13.4-35.0); Mean Corpuscular HGB Conc 30 % (32-34); Mean Corpuscular Volume 91 fl (84-94); Monocytes % (Auto) 8.3 % (0.0-7.3); Platelet Count 284 K/mm3 (140-440); Red Blood Count 4.91 M/mm3 (3.65-5.03); Red Cell Distribution Width 17.3 % (13.2-15.2)
[2019-03-15 06:47] LABS: Hematocrit 44.4 % (35.5-45.6); Hemoglobin 13.3 gm/dl (11.8-15.2)
[2019-03-15 06:59] LABS: Alanine Aminotransferase 11 units/L (7-56); Albumin 4.4 g/dL (3.9-5); BUN/Creatinine Ratio 13; Blood Urea Nitrogen 17 mg/dL (9-20); Calcium 10.1 mg/dL (8.4-10.2); Hemolysis Index 7
[2019-03-15] MEDS ORDERED: D5W/0.45% NACL 1,000 ML IV SCH (07:00)
--- NOTE | 2019-03-15 07:23 | Cat Scan Report ---
CT head/brain wo con INDICATION: sz ams. TECHNIQUE: Routine CT head without contrast. All CT scans at this location are performed using CT dos e reduction for ALARA by means of automated exposure control. COMPARISON: CT brain 11/09/2018 FINDINGS: BRAIN / INTRACRANIAL CONTENTS: No acute hemorrhage, mass effect, midline shift, or hydrocephalus. No appreciable acute large territorial or lacunar infarct. No chronic infarct. Age-commensurate ventricu lar and cisternal/sulcal prominence. Scattered areas of cerebral white matter low-attenuation, nonspe cific but suggestive of chronic microvascular ischemic change. ORBITS: No significant abnormality of visualized orbits. SINUSES / MASTOIDS: No significant abnormality of visualized sinuses and mastoid air cells. ADDITIONAL FINDINGS: None. IMPRESSION: 1. No acute intracranial abnormality on noncontrast CT of the brain and no significant change compare d with prior examination. Signer Name: Kandis Vu MD Signed: 03/15/2019 7:18 AM Workstation Name: [id number]
--- NOTE | 2019-03-15 07:28 | Cat Scan Report ---
CT CERVICAL SPINE WITHOUT CONTRAST INDICATION / CLINICAL INFORMATION: MAIN: SEIZURES, ALTERED MENTAL STATUS. FALL.. TECHNIQUE: Axial CT images were obtained through the cervical spine. Sagittal and coronal reformatted images wer e produced. All CT scans at this location are performed using CT dose reduction for ALARA by means of automated exposure control. COMPARISON: CT cervical spine 04/25/2017 FINDINGS: VERTEBRAE: Vertebral body heights are maintained. No acute displaced fracture identified. ALIGNMENT: No significant abnormality. DISC SPACES: Moderate to advanced disc height loss, most prominent at C4-5 and C6-7. FACET JOINTS: Multilevel uncovertebral and facet hypertrophy with resultant multilevel [id number] te foraminal narrowing. CRANIOCERVICAL JUNCTION:No significant abnormality. SPINAL CANAL: No significant abnormality. PARASPINAL SOFT TISSUES: No significant abnormality. ADDITIONAL FINDINGS: None. LUNG APICES: No significant abnormality of visualized lungs. IMPRESSION: 1. No acute fracture identified in the cervical spine. 2. Multilevel cervical spondylosis. Signer Name: Kandis Vu MD Signed: 03/15/2019 7:23 AM Workstation Name: [id number]
--- NOTE | 2019-03-15 07:29 | XRay Report ---
CHEST 1 VIEW INDICATION / CLINICAL INFORMATION: sz. COMPARISON: Chest radiograph 02/15/2019 FINDINGS: SUPPORT DEVICES: None. HEART / MEDIASTINUM: No significant abnormality. LUNGS / PLEURA: No significant pulmonary or pleural abnormality. No pneumothorax. ADDITIONAL FINDINGS: No significant additional findings. IMPRESSION: 1. No acute findings. Signer Name: Kandis Vu MD Signed: 03/15/2019 7:24 AM Workstation Name: [id number]
[2019-03-15 08:34] LABS: Bacteria,Urine 2+ /HPF (Negative); Bilirubin,Urine NEG (Negative); Blood,Urine MOD (Negative); Color,Urine Yellow (Yellow); Hyaline Casts,Urine 31 /LPF; Mucus,Urine FEW /HPF; Urobilinogen,Urine < 2.0 mg/dL (<2.0)
[2019-03-15 09:29] LABS: BUN/Creatinine Ratio 15; Blood Urea Nitrogen 17 mg/dL (9-20); Calcium 9.7 mg/dL (8.4-10.2); Hemolysis Index 12
[2019-03-15 12:39] VITALS: BP 139/81
== END 2019-03-15 13:30 | disposition home or self-care (01) ==
LOC: ED 05:48
DX: G40.909 Epilepsy, unspecified, not intractable, without status epilepticus (principal); I48.0 Paroxysmal atrial fibrillation; I10 Essential (primary) hypertension; Z79.899 Other long term (current) drug therapy; M19.90 Unspecified osteoarthritis, unspecified site; J45.909 Unspecified asthma, uncomplicated; Z90.49 Acquired absence of other specified parts of digestive tract
CPT/HCPCS: 36415; 70450; 71045; 72125; 80048; 80053; 81001; 82550; 83735; 85025; 93005; 93010; 96365; 96375; 99285; J1953; J3360; 80320; G0480

== ENCOUNTER 2019-04-28 07:31 | Inpatient (IN) | payer MEDICARE ==
[2019-04-28 08:17] LABS: Basophils # (Auto) 0.1 K/mm3 (0.0-0.1); Basophils % (Auto) 0.7 % (0.0-1.8); Eosinophils # (Auto) 0.2 K/mm3 (0.0-0.4); Eosinophils % (Auto) 2.1 % (0.0-4.3); Hemoglobin 12.5 gm/dl (11.8-15.2); Lymphocytes # (Auto) 1.1 K/mm3 (1.2-5.4); Lymphocytes % (Auto) 14.4 % (13.4-35.0); Mean Corpuscular HGB Conc 33 % (32-34); Mean Corpuscular Volume 83 fl (84-94); Monocytes % (Auto) 12.8 % (0.0-7.3); Platelet Count 259 K/mm3 (140-440); Red Blood Count 4.58 M/mm3 (3.65-5.03); Red Cell Distribution Width 17.9 % (13.2-15.2)
[2019-04-28 08:36] LABS: Albumin 3.8 g/dL (3.9-5); BUN/Creatinine Ratio 13; Blood Urea Nitrogen 13 mg/dL (9-20); Calcium 9.7 mg/dL (8.4-10.2); Hemolysis Index 71
--- NOTE | 2019-04-28 08:36 | XRay Report ---
CHEST 1 VIEW INDICATION: cough. COMPARISON: 03/15/2019 FINDINGS: Support devices: None. Heart: Within normal limits. Lungs/Pleura: No acute air space or interstitial disease. Additional findings: None. IMPRESSION: 1. No acute findings. Signer Name: Elmer Driver MD Signed: 04/28/2019 8:32 AM Workstation Name: [id number]
--- NOTE | 2019-04-28 08:41 | Emergency Department Report ---
ED Seizure HPI - General Chief Complaint: Seizure Stated Complaint: SEIZURE Time Seen by Provider: 04/28/19 08:33 Source: EMS Mode of arrival: Stretcher Limitations: Altered Mental Status - History of Present Illness Initial Comments: Patient is a 73-year-old male that presents emergency room with complaints of seizure. Patient states he was at home and his seizures witnessed by his family. Patient states phenytoin tinnitus head. Patient denies trauma. Patient states she has a seizure history and has a seizure partially one time per month. Patient states he sees a neurologist. Patient states he is compliant with his seizure medications. Patient denies headache. Patient denies blurry vision. Patient denies loss of bladder control. Patient denies chest pain or shortness of breath. Patient states she's had a recent URI. Patient complains of cough for 5 days. Patient denies fever and chills. Patient denies shortness of breath. Patient complains of runny nose. Patient states his cough is a dry cough. Patient states his cough is improving. MD Complaint: seizure -: Sudden Description of Episode: loss of consciousness, tonic-clonic movement, post-event confusion -: minutes(s) Witnessed:: Yes Trauma: No Seizure History: known seizure disorder, compliant with medication Place: home Possible Precipitating Event: other Associated Symptoms: cough. denies: chest pain, confusion, diaphoresis, fever/chills, loss of appetite, malaise, rash, shortness of breath, syncope, weakness, tongue injury, shoulder dislocation Treatments Prior to Arrival: none - Related Data Home Medications Medication Instructions Recorded Confirmed Last Taken Lisinopril 5 mg PO QDAY 06/22/18 02/15/19 02/14/19 Spiriva 7.5 mcg IH BID 06/22/18 02/15/19 02/14/19 amLODIPine 10 mg PO QDAY 06/22/18 02/15/19 02/14/19 guaiFENesin [Guaifenesin] 400 mg PO TID 06/22/18 02/15/19 02/14/19 Previous Rx's Medication Instructions Recorded Last Taken Type Metoprolol [Lopressor TAB] 25 mg PO TID #90 tablet 01/22/18 02/14/19 Rx Amiodarone [Cordarone 200 MG TAB] 200 mg PO DAILY #30 tab 02/16/19 Unknown Rx Folic Acid [Folvite] 1 mg PO QDAY #30 tablet 03/15/19 Unknown Rx Thiamine [Vitamin B-1] 100 mg PO QDAY #30 tab 03/15/19 Unknown Rx chlordiazePOXIDE [Librium] 25 mg PO Q8H PRN #20 capsule 03/15/19 Unknown Rx levETIRAcetam 750 mg PO BID #60 03/15/19 Unknown Rx Allergies Allergy/AdvReac Type Severity Reaction Status Date / Time No Known Allergies Allergy Verified 04/28/19 07:49 ED Review of Systems ROS: Stated complaint: SEIZURE Other details as noted in HPI Constitutional: denies: chills, fever Eyes: denies: eye pain, eye discharge, vision change ENT: denies: ear pain, throat pain Respiratory: cough. denies: shortness of breath, wheezing Cardiovascular: denies: chest pain, palpitations Endocrine: no symptoms reported Gastrointestinal: denies: abdominal pain, nausea, diarrhea Genitourinary: denies: urgency, dysuria Musculoskeletal: denies: back pain, joint swelling, arthralgia Skin: denies: rash, lesions Neurological: denies: headache, weakness, paresthesias Psychiatric: denies: anxiety, depression Hematological/Lymphatic: denies: easy bleeding, easy bruising ED Past Medical Hx - Past Medical History Previous Medical History?: Yes Hx Hypertension: Yes Hx Heart Attack/AMI: No Hx Diabetes: No Hx Deep Vein Thrombosis: No Hx Pulmonary Embolism: No Hx Liver Disease: Yes Hx Renal Disease: No Hx Sickle Cell Disease: No Hx Arthritis: Yes 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 TBI - Surgical History Past Surgical History?: Yes Hx Coronary Stent: No Hx Pacemaker: No Hx Internal Defibrillator: No Hx Appendectomy: Yes Additional Surgical History: Left upper extremity surgery related to trauma - Family History Family history: no significant - Social History Smoking Status: Never Smoker Substance Use Type: None - Medications Home Medications: Home Medications Medication Instructions Recorded Confirmed Last Taken Type Metoprolol [Lopressor TAB] 25 mg PO TID #90 tablet 01/22/18 02/15/19 02/14/19 Rx Lisinopril 5 mg PO QDAY 06/22/18 02/15/19 02/14/19 History Spiriva 7.5 mcg IH BID 06/22/18 02/15/19 02/14/19 History amLODIPine 10 mg PO QDAY 06/22/18 02/15/19 02/14/19 History guaiFENesin [Guaifenesin] 400 mg PO TID 06/22/18 02/15/19 02/14/19 History Amiodarone [Cordarone 200 MG TAB] 200 mg PO DAILY #30 tab 02/16/19 Unknown Rx Folic Acid [Folvite] 1 mg PO QDAY #30 tablet 03/15/19 Unknown Rx Thiamine [Vitamin B-1] 100 mg PO QDAY #30 tab 03/15/19 Unknown Rx chlordiazePOXIDE [Librium] 25 mg PO Q8H PRN #20 capsule 03/15/19 Unknown Rx levETIRAcetam 750 mg PO BID #60 03/15/19 Unknown Rx ED Physical Exam - General Limitations: No Limitations General appearance: alert, in no apparent distress - Head Head exam: Present: atraumatic, normocephalic - Eye Eye exam: Present: normal appearance - ENT ENT exam: Present: mucous membranes moist - Neck Neck exam: Present: normal inspection - Respiratory Respiratory exam: Present: normal lung sounds bilaterally. Absent: respiratory distress, wheezes, rales - Cardiovascular Cardiovascular Exam: Present: regular rate, normal rhythm. Absent: systolic murmur, diastolic murmur, rubs, gallop - GI/Abdominal GI/Abdominal exam: Present: soft, normal bowel sounds - Rectal Rectal exam: Present: deferred - Extremities Exam Extremities exam: Present: normal inspection - Back Exam Back exam: Present: normal inspection - Neurological Exam Neurological exam: Present: alert, oriented X3 - Psychiatric Psychiatric exam: Present: normal affect, normal mood - Skin Skin exam: Present: warm, dry, intact, normal color. Absent: rash ED Course Vital Signs 04/28/19 04/28/19 04/28/19 07:34 07:45 07:47 Temperature 99.0 F Pulse Rate 92 H 91 H Respiratory 21 22 18 Rate Blood Pressure 141/79 Blood Pressure 142/80 [Left] O2 Sat by Pulse 97 93 96 Oximetry 04/28/19 04/28/19 04/28/19 08:00 08:15 08:30 Temperature Pulse Rate 86 85 85 Respiratory 20 19 18 Rate Blood Pressure 132/76 136/73 134/78 Blood Pressure [Left] O2 Sat by Pulse 96 96 97 Oximetry 04/28/19 04/28/19 04/28/19 08:45 09:00 09:16 Temperature Pulse Rate 77 75 120 H Respiratory 20 18 22 Rate Blood Pressure 140/80 140/80 140/80 Blood Pressure [Left] O2 Sat by Pulse 97 97 100 Oximetry 04/28/19 04/28/19 04/28/19 09:30 10:31 10:34 Temperature Pulse Rate 161 H 82 87 Respiratory 34 H 34 H 24 Rate Blood Pressure 200/152 93/58 Blood Pressure [Left] O2 Sat by Pulse 98 100 Oximetry 04/28/19 04/28/19 04/28/19 10:36 10:38 10:40 Temperature Pulse Rate 87 90 82 Respiratory 23 26 H 18 Rate Blood Pressure 93/58 93/58 93/58 Blood Pressure [Left] O2 Sat by Pulse 100 100 100 Oximetry 04/28/19 04/28/19 04/28/19 10:42 10:44 10:46 Temperature Pulse Rate 93 H 88 85 Respiratory 18 18 16 Rate Blood Pressure 93/58 93/58 101/59 Blood Pressure [Left] O2 Sat by Pulse 98 99 99 Oximetry 04/28/19 04/28/19 04/28/19 10:48 10:50 10:52 Temperature Pulse Rate 90 89 91 H Respiratory 17 27 H 19 Rate Blood Pressure 101/59 101/59 101/59 Blood Pressure [Left] O2 Sat by Pulse 100 100 100 Oximetry 04/28/19 04/28/19 04/28/19 10:54 10:56 10:58 Temperature Pulse Rate 94 H 93 H 86 Respiratory 20 21 13 Rate Blood Pressure 101/59 101/59 101/59 Blood Pressure [Left] O2 Sat by Pulse 100 100 100 Oximetry 04/28/19 04/28/19 04/28/19 11:00 11:02 11:04 Temperature Pulse Rate 98 H 104 H 93 H Respiratory 18 13 24 Rate Blood Pressure 101/59 99/58 99/58 Blood Pressure [Left] O2 Sat by Pulse 98 100 100 Oximetry 04/28/19 04/28/19 04/28/19 11:06 11:08 11:10 Temperature Pulse Rate 92 H 88 91 H Respiratory 22 21 21 Rate Blood Pressure 99/58 99/58 99/58 Blood Pressure [Left] O2 Sat by Pulse 100 100 100 Oximetry 04/28/19 04/28/19 04/28/19 11:12 11:14 11:16 Temperature Pulse Rate 99 H 86 92 H Respiratory 20 20 24 Rate Blood Pressure 99/58 99/58 114/60 Blood Pressure [Left] O2 Sat by Pulse 100 100 100 Oximetry 04/28/19 04/28/19 04/28/19 11:18 11:20 11:22 Temperature Pulse Rate 93 H 91 H 88 Respiratory 22 23 20 Rate Blood Pressure 114/60 114/60 114/60 Blood Pressure [Left] O2 Sat by Pulse 100 100 100 Oximetry 04/28/19 04/28/19 04/28/19 11:24 11:26 11:28 Temperature Pulse Rate 87 91 H 84 Respiratory 21 20 19 Rate Blood Pressure 114/60 114/60 114/60 Blood Pressure [Left] O2 Sat by Pulse 100 100 100 Oximetry 04/28/19 04/28/19 04/28/19 11:30 11:32 11:34 Temperature Pulse Rate 84 92 H 87 Respiratory 19 20 19 Rate Blood Pressure 107/56 107/56 107/56 Blood Pressure [Left] O2 Sat by Pulse 100 100 100 Oximetry 04/28/19 04/28/19 04/28/19 11:36 11:38 11:40 Temperature Pulse Rate 94 H 87 88 Respiratory 20 19 19 Rate Blood Pressure 107/56 107/56 107/56 Blood Pressure [Left] O2 Sat by Pulse 100 100 100 Oximetry 04/28/19 04/28/19 04/28/19 11:42 11:44 11:46 Temperature Pulse Rate 85 85 82 Respiratory 19 17 18 Rate Blood Pressure 107/56 107/56 103/62 Blood Pressure [Left] O2 Sat by Pulse 100 100 100 Oximetry 04/28/19 04/28/19 04/28/19 11:48 11:50 11:58 Temperature Pulse Rate 84 91 H 81 Respiratory 17 17 16 Rate Blood Pressure 103/62 103/62 103/62 Blood Pressure [Left] O2 Sat by Pulse 100 100 100 Oximetry 04/28/19 04/28/19 04/28/19 12:00 12:02 12:04 Temperature Pulse Rate 84 88 84 Respiratory 16 16 16 Rate Blood Pressure 103/62 115/69 115/69 Blood Pressure [Left] O2 Sat by Pulse 100 100 100 Oximetry 04/28/19 04/28/19 04/28/19 12:06 12:08 12:10 Temperature Pulse Rate 91 H 91 H 85 Respiratory 16 16 16 Rate Blood Pressure 115/69 115/69 115/69 Blood Pressure [Left] O2 Sat by Pulse 100 100 100 Oximetry 04/28/19 04/28/19 04/28/19 12:12 12:14 12:16 Temperature Pulse Rate 81 79 89 Respiratory 16 16 15 Rate Blood Pressure 115/69 115/69 116/71 Blood Pressure [Left] O2 Sat by Pulse 100 100 100 Oximetry 04/28/19 04/28/19 04/28/19 12:18 12:20 12:22 Temperature Pulse Rate 82 84 86 Respiratory 16 15 16 Rate Blood Pressure 116/71 116/71 116/71 Blood Pressure [Left] O2 Sat by Pulse 100 100 100 Oximetry 04/28/19 04/28/19 04/28/19 12:24 12:26 12:28 Temperature Pulse Rate 87 79 86 Respiratory 16 16 15 Rate Blood Pressure 116/71 116/71 116/71 Blood Pressure [Left] O2 Sat by Pulse 100 100 100 Oximetry 04/28/19 04/28/19 04/28/19 12:30 12:32 12:34 Temperature Pulse Rate 83 74 84 Respiratory 15 15 14 Rate Blood Pressure 120/74 120/74 120/74 Blood Pressure [Left] O2 Sat by Pulse 100 100 100 Oximetry 04/28/19 04/28/19 04/28/19 12:36 12:38 12:40 Temperature Pulse Rate 79 86 76 Respiratory 16 14 14 Rate Blood Pressure 120/74 120/74 120/74 Blood Pressure [Left] O2 Sat by Pulse 100 100 100 Oximetry 04/28/19 04/28/19 04/28/19 12:42 12:44 12:46 Temperature Pulse Rate 86 77 78 Respiratory 16 16 14 Rate Blood Pressure 120/74 120/74 119/84 Blood Pressure [Left] O2 Sat by Pulse 100 100 100 Oximetry 04/28/19 04/28/19 04/28/19 12:48 12:50 12:52 Temperature Pulse Rate 95 H 77 82 Respiratory 13 16 14 Rate Blood Pressure 119/84 119/84 119/84 Blood Pressure [Left] O2 Sat by Pulse 100 100 99 Oximetry 04/28/19 04/28/19 04/28/19 12:54 12:56 12:58 Temperature Pulse Rate 80 86 86 Respiratory 15 15 14 Rate Blood Pressure 119/84 119/84 119/84 Blood Pressure [Left] O2 Sat by Pulse 100 100 100 Oximetry 04/28/19 04/28/19 04/28/19 13:00 13:02 13:04 Temperature Pulse Rate 79 76 74 Respiratory 15 15 15 Rate Blood Pressure 129/78 129/78 129/78 Blood Pressure [Left] O2 Sat by Pulse 98 100 100 Oximetry 04/28/19 04/28/19 04/28/19 13:06 13:08 13:10 Temperature Pulse Rate 74 89 78 Respiratory 15 13 13 Rate Blood Pressure 129/78 129/78 129/78 Blood Pressure [Left] O2 Sat by Pulse 100 100 100 Oximetry 04/28/19 04/28/19 04/28/19 13:12 13:14 13:16 Temperature Pulse Rate 77 75 74 Respiratory 14 15 14 Rate Blood Pressure 129/78 129/78 122/76 Blood Pressure [Left] O2 Sat by Pulse 100 100 100 Oximetry 04/28/19 04/28/19 04/28/19 13:18 13:20 13:22 Temperature Pulse Rate 82 77 87 Respiratory 14 13 22 Rate Blood Pressure 122/76 122/76 122/76 Blood Pressure [Left] O2 Sat by Pulse 100 100 100 Oximetry 04/28/19 04/28/19 04/28/19 13:24 13:26 13:28 Temperature Pulse Rate 75 79 73 Respiratory 14 15 15 Rate Blood Pressure 122/76 122/76 122/76 Blood Pressure [Left] O2 Sat by Pulse 100 100 100 Oximetry 04/28/19 04/28/19 04/28/19 13:30 13:32 13:34 Temperature Pulse Rate 77 82 87 Respiratory 13 15 15 Rate Blood Pressure 122/76 128/72 128/72 Blood Pressure [Left] O2 Sat by Pulse 100 100 99 Oximetry 04/28/19 04/28/19 04/28/19 13:36 13:40 13:50 Temperature Pulse Rate 72 85 77 Respiratory 15 16 22 Rate Blood Pressure 128/72 128/72 122/69 Blood Pressure [Left] O2 Sat by Pulse 100 100 100 Oximetry 04/28/19 04/28/19 04/28/19 14:00 14:10 14:20 Temperature Pulse Rate 81 74 78 Respiratory 16 15 15 Rate Blood Pressure 106/76 106/76 113/68 Blood Pressure [Left] O2 Sat by Pulse 100 100 100 Oximetry 04/28/19 04/28/19 04/28/19 14:30 14:40 14:50 Temperature Pulse Rate 72 75 81 Respiratory 14 16 16 Rate Blood Pressure 113/68 121/76 126/84 Blood Pressure [Left] O2 Sat by Pulse 100 100 100 Oximetry 04/28/19 04/28/19 04/28/19 15:00 15:10 15:20 Temperature Pulse Rate 74 76 70 Respiratory 18 16 16 Rate Blood Pressure 126/84 138/87 131/78 Blood Pressure [Left] O2 Sat by Pulse 100 100 100 Oximetry 04/28/19 04/28/19 04/28/19 15:30 15:40 15:50 Temperature Pulse Rate 75 69 82 Respiratory 16 15 16 Rate Blood Pressure 132/85 132/85 121/82 Blood Pressure [Left] O2 Sat by Pulse 100 100 100 Oximetry 04/28/19 04/28/19 04/28/19 16:00 16:10 16:20 Temperature Pulse Rate 76 78 63 Respiratory 16 15 15 Rate Blood Pressure 121/82 128/78 129/78 Blood Pressure [Left] O2 Sat by Pulse 100 100 100 Oximetry 04/28/19 04/28/19 04/28/19 16:30 16:40 16:50 Temperature Pulse Rate 82 76 76 Respiratory 20 19 18 Rate Blood Pressure 129/78 143/89 138/90 Blood Pressure [Left] O2 Sat by Pulse 100 100 100 Oximetry 04/28/19 04/28/19 04/28/19 17:00 17:10 17:20 Temperature Pulse Rate 71 72 79 Respiratory 19 20 17 Rate Blood Pressure 137/87 137/87 148/91 Blood Pressure [Left] O2 Sat by Pulse 100 100 100 Oximetry 04/28/19 17:30 Temperature Pulse Rate 77 Respiratory 15 Rate Blood Pressure 148/91 Blood Pressure [Left] O2 Sat by Pulse 100 Oximetry - Reevaluation(s) Reevaluation #1: Patient began to seize. Patient given Ativan. Patient sees on the way back from CT scan. CT of the head done. Results pending. Patient also found to be in a tachycardic rhythm. EKG will be done. 04/28/19 09:25 Reevaluation #2: Cardizem drip and push ordered for A. fib RVR however the patient just became hypotensive. Cardizem discontinued and patient placed on amiodarone. 04/28/19 10:00 Reevaluation #3: Patient is on amiodarone drip. Blood Pressures improving. Patient is on saline bolus. Patient admitted to the hospitalist service. 04/28/19 10:36 - Consultations Consultation #1: Hospitalist consultation for admission. Hospitalist to be patient. Patient admitted into the ICU. Bridge orders place. 04/28/19 10:36 ED Medical Decision Making - Lab Data Result diagrams: 04/28/19 07:56 04/28/19 07:56 - EKG Data -: EKG Interpreted by [facility] EKG shows normal: axis, intervals, QRS complexes, ST-T waves Rate: tachycardia - EKG Data Interpretation: other (A. fib RVR.) - Radiology Data Radiology results: report reviewed, image reviewed CT BRAIN: 04/28/2019 INDICATION / CLINICAL INFORMATION: Seizure. COMPARISON: 03/15/2019 FINDINGS: BRAIN/INTRACRANIAL STRUCTURES: Unenhanced CT images of the brain were obtained and compared to a prior exam from 03/15/2019. There has been no change. There is no evidence of acute abnormality. Ventricles and sulci are prominent in size, consistent with prominent diffuse cerebral atrophy. There is no evidence of acute large vessel territory ischemic injury, hemorrhage, or mass. There are no abnormal extra-axial fluid collections. EXTRACRANIAL STRUCTURES: Unremarkable. IMPRESSION: No acute abnormality. Diffuse cerebral atrophy. No change when compared to 03/15/2019. CHEST 1 VIEW INDICATION: cough. COMPARISON: 03/15/2019 FINDINGS: Support devices: None. Heart: Within normal limits. Lungs/Pleura: No acute air space or interstitial disease. Additional findings: None. IMPRESSION: 1. No acute findings. - Medical Decision Making Patient is a 73-year-old male Emergency room with complaints of seizure. While in the ER the patient had another seizure after his head CT was done. Patient then went into a SVT rhythm. Patient then became hypotensive. Due to the patient's hypertension the patient was originally going to be given Cardizem however the order was changed to amiodarone. After the MRI bolus and drip was started, the patient converted back to sinus rhythm. Patient given saline bolus for his blood pressure and his blood pressure improved. Patient's labs essentially unremarkable. Patient given Keppra and Ativan for his seizures. Patient admitted into the ICU and to the hospitalist service. - Differential Diagnosis seizure. Confusion. ams. SVT, A. fib RVR. Hypotension Critical Care Time: Yes Critical care time in (mins) excluding proc time.: 35 Critical care attestation.: If time is entered above; I have spent that time in minutes in the direct care of this critically ill patient, excluding procedure time. Critical Care Time: 35 minutes ED Disposition Clinical Impression: Atrial fibrillation with rapid ventricular response, Seizure Altered mental status Qualifiers: Altered mental status type: unspecified Qualified Code(s): R41.82 - Altered mental status, unspecified Hypotension Qualifiers: Hypotension type: unspecified hypotension type Qualified Code(s): I95.9 - Hypotension, unspecified Disposition: DC-09 OP ADMIT IP TO THIS HOSP Is pt being admited?: Yes Does the pt Need Aspirin: No Condition: Critical Time of Disposition: 10:38
[2019-04-28] MEDS ORDERED: levETIRAcetam 1000 MG/NS 0.75% 1,000 MG/100 ML BAG IV ONE (08:43)
[2019-04-28 08:45] LABS: Alanine Aminotransferase < 5 units/L (7-56)
[2019-04-28] MEDS ORDERED: LORazepam 2 MG/ML VIAL ONE (09:20)
[2019-04-28] MEDS ORDERED: SODIUM CHLORIDE 0.9% 1000 ML 1,000 ML ONE (09:25)
--- NOTE | 2019-04-28 09:44 | Cat Scan Report ---
CT BRAIN: 04/28/2019 INDICATION / CLINICAL INFORMATION: Seizure. COMPARISON: 03/15/2019 FINDINGS: BRAIN/INTRACRANIAL STRUCTURES: Unenhanced CT images of the brain were obtained and compared to a prio r exam from 03/15/2019. There has been no change. There is no evidence of acute abnormality. Ventricles and sulci are prominent in size, consistent with prominent diffuse cerebral atrophy. There is no evidence of acute large vessel territory ischemic injury, hemorrhage, or mass. There are no abnormal extra-axial fluid collections. EXTRACRANIAL STRUCTURES: Unremarkable. IMPRESSION: No acute abnormality. Diffuse cerebral atrophy. No change when compared to 03/15/2019. All CT scans at this location are performed using dose reduction to ALARA by means of automated expos ure control. Signer Name: Sy Martinez MD Signed: 04/28/2019 9:39 AM Workstation Name: [id number]
[2019-04-28] MEDS ORDERED: dilTIAZem 25 MG/5 ML INJ IV ONE (09:52)
[2019-04-28] MEDS ORDERED: LORazepam 2 MG/ML VIAL IV ONE (09:53)
[2019-04-28] MEDS ORDERED: AMIODARONE 150 MG in DEXTROSE 5% IN WATER 97 ML IV ONE (09:59)
[2019-04-28] MEDS ORDERED: SODIUM CHLORIDE 0.9% 1000 ML 2,000 ML ONE (09:59)
[2019-04-28] MEDS ORDERED: dilTIAZem/D5W 100 MG/100 ML BAG IV SCH (10:00)
[2019-04-28] MEDS ORDERED: AMIODARONE 150 MG/3 ML INJ IV ONE (10:07)
[2019-04-28] MEDS: AMIODARONE 900 MG in DEXTROSE 5% IN WATER 482 ML IV SCH (10:33)
[2019-04-28] MEDS ORDERED: SODIUM CHLORIDE 0.9% 1000 ML 2,000 ML IV ONE (10:34)
[2019-04-28 10:43] LABS: Bacteria,Urine 1+ /HPF (Negative); Bilirubin,Urine NEG (Negative); Blood,Urine NEG (Negative); Color,Urine Yellow (Yellow); Hyaline Casts,Urine 8 /LPF
[2019-04-28 10:50] LABS: Amphetamine Screen,Urine PRESUMPTIVE NEGATIVE; Benzodiazepines Screen,Urine PRESUMPTIVE NEGATIVE; Cocaine Screen,Urine PRESUMPTIVE NEGATIVE; Methadone Screen,Urine PRESUMPTIVE NEGATIVE; Opiate Screen,Urine PRESUMPTIVE NEGATIVE
[2019-04-28 11:00] LABS: Creatine Kinase MB 1.1 ng/mL (0.0-4.0)
[2019-04-28 11:02] LABS: Cannabinoid Screen,Urine PRESUMPTIVE POSITIVE
[2019-04-28] MEDS ORDERED: HYDROcodone/ACETAMINOPHEN 5-325 MG TAB ONE (12:56)
[2019-04-28] MEDS ORDERED: HYDROcodone/ACETAMINOPHEN 5-325 MG TAB PO ONE (13:00)
[2019-04-28] MEDS ORDERED: SODIUM CHLORIDE 0.9% 1000 ML 1,000 ML IV ONE (13:34)
--- NOTE | 2019-04-28 13:34 | History and Physical Report ---
History of Present Illness Date of examination: 04/28/19 Date of admission: 04/28/19 10:37 Chief complaint: Patient was seen and examined. Follow-up on current diagnosis. No overnight events reported to me. Patient denies any chest pain, shortness breath, nausea/vomiting or severe headaches. Imaging, nursing note, chart, labs and old chart reviewed. Discussed with patient. PMH: as hpi PSH: SH: FH: ROS: Constitutional: denies: fever ENT: denies: throat or neck pain Respiratory: denies: cough, shortness of breath Cardiovascular: denies: chest pain Endocrine: denies unexplained weight loss or gain Gastrointestinal: denies: abdominal pain, nausea Genitourinary: denies: dysuria Rectal: denies no incontinence, no bleeding, no itching, no discharge Musculoskeletal: denies swelling, myaglia, muscle weakness Skin: denies: rash Neurological: denies: headache Hematological/Lymphatic: denies: easy bleeding or easy bruising Allergic/Immunologic: no urticaria, no allergic rhinitis, no anaphylaxis Psych: denies sadness or hopelessness, SI/HI Gen: WDWN, NAD, Awake, Alert, Orientated HEENT: NCAT, EOMI, PERRL, OP Clear Neck: supple, no adenopathy, no thyromegaly, no JVD CVS/Heart: RRR, normal S1S2, pulses present bilaterally Chest/Lungs: CTA B, Symmetrical chest expansion, good air entry bilaterally GI/Abdomen: soft, NTND, good bowel sounds, no guarding or rebound /Bladder: no suprapubic tenderness, no CVA or paraspinal tenderness Extermity/Skin: no c/c/e, no obvious rash MSK: FROM x 4 Neuro: CN 2-12 grossly intact, no new focal deficits Psych: calm History of present illness: Patient is a 73-year-old -[place] man with a 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 fib, Asthma/COPD, hypertension, alcohol abuse with Alcholol withdrawal and tobacco dependency who presents to the emergency department with complaints of sz witnessed by his family (none present at the moment). History per chart as given to ED physician because patient is post seizure. Patient went for CT head and developed seizure after the test and he was given IV Ativan . Then developed AFib with RVR and was given IV Cardizem which caused hypotension. He was treat with IVF, Cardizem stopped and IV Amiodarone bolus and drip started. Past Medical History: atrial fib, hypertension, seizures, stroke Past Surgical History: Appendix removed and Left upper extremity surgery related to trauma Social history: smoking (1 pack over 3 days), alcohol abuse (social), full code. denies: prescription drug abuse, IV drug use Family history: denies: cancer, hypertension, stroke ROS unable to obtain due to AMS Medications and Allergies Allergies Allergy/AdvReac Type Severity Reaction Status Date / Time No Known Allergies Allergy Verified 04/28/19 07:49 Home Medications Medication Instructions Recorded Confirmed Last Taken Type Metoprolol [Lopressor TAB] 25 mg PO TID #90 tablet 01/22/18 02/15/19 02/14/19 Rx Lisinopril 5 mg PO QDAY 06/22/18 02/15/19 02/14/19 History Spiriva 7.5 mcg IH BID 06/22/18 02/15/19 02/14/19 History amLODIPine 10 mg PO QDAY 06/22/18 02/15/19 02/14/19 History guaiFENesin [Guaifenesin] 400 mg PO TID 06/22/18 02/15/19 02/14/19 History Amiodarone [Cordarone 200 MG TAB] 200 mg PO DAILY #30 tab 02/16/19 Unknown Rx Folic Acid [Folvite] 1 mg PO QDAY #30 tablet 03/15/19 Unknown Rx Thiamine [Vitamin B-1] 100 mg PO QDAY #30 tab 03/15/19 Unknown Rx chlordiazePOXIDE [Librium] 25 mg PO Q8H PRN #20 capsule 03/15/19 Unknown Rx levETIRAcetam 750 mg PO BID #60 03/15/19 Unknown Rx Active Meds: Active Medications Amiodarone HCl 900 mg/ (Dextrose) 500 mls @ 33.333 mls/hr IV DIRECT [facility]; Protocol Last Admin: 04/28/19 10:33 Dose: 1 mg/min, 33.333 mls/hr Documented by: Exam - Physical Exam Narrative exam: Gen: thin frial, chronically disable appearing, lethargic, orientated x 1 HEENT: NCAT, EOMI, PERRL, OP Clear Neck: supple, no adenopathy, no thyromegaly, no JVD CVS/Heart: irregular irregular normal S1S2, pulses present bilaterally Chest/Lungs: CTA B, Symmetrical chest expansion, good air entry bilaterally GI/Abdomen: soft, NTND, good bowel sounds, no guarding or rebound /Bladder: no suprapubic tenderness, no CVA or paraspinal tenderness, right inguinal hernia Extermity/Skin: no c/c/e, no obvious rash MSK: FROM x 4 Neuro: CN 2-12 grossly intact, no new focal deficits Psych: sleeping - Constitutional Vitals: Temp Pulse Resp BP Pulse Ox 99.0 F 91 H 17 103/62 100 04/28/19 07:47 04/28/19 11:50 04/28/19 11:50 04/28/19 11:50 04/28/19 11:50 Results - Labs CBC & Chem 7: 04/28/19 07:56 04/28/19 07:56 Labs: Abnormal lab results 04/28/19 04/28/19 Range/Units 07:56 07:56 MCV 83 L (84-94) fl MCH 27 L (28-32) pg RDW 17.9 H (13.2-15.2) % [place] % (Auto) 12.8 H (0.0-7.3) % Lymph # 1.1 L (1.2-5.4) K/mm3 [place] # 1.0 H (0.0-0.8) K/mm3 Carbon Dioxide 20 L (22-30) mmol/L Glucose 101 H (75-100) mg/dL ALT < 5 L (7-56) units/L Albumin 3.8 L (3.9-5) g/dL Assessment and Plan Patient is a 73-year-old -[place] man with a 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 fib, Asthma/COPD, hypertension, alcohol abuse with Alcholol withdrawal and tobacco dependency who presents to the emergency department with complaints of intermittent severe sz witnessed by his family (none present at the moment). History per chart as given to ED physician because patient is post seizure. Patient went for CT head and developed seizure after the test and he w as given IV Ativan . Then developed AFib with RVR and was given IV Cardizem which caused hypotension. He was treat with IVF, Cardizem stopped and IV Amiodarone bolus and drip started. Patient states she's had a recent URI. Patient complains of cough for 5 days. Patient denies fever and chills. Jean martín denies shortness of breath. Patient complains of runny nose. Patient states his cough is a dry cough. Patient states his cough is improving. Patient likely has medical noncompliance issue such as in the past, need collateral history, so I called his son but his girlfriend, Renetta, whom lives with them, answered. He had 2 seizures, around 7am. She is not sure if he ran out of seizure medication but He was just in hospital last week, but she doesn't know which hospital he was admitted to. She is not a good historian either. * pCXR IMPRESSION: 1. No acute findings. * CT head without contrast IMPRESSION: No acute abnormality. Diffuse cerebral atrophy. No change when compared to 03/15/2019. Intractable Seizure disorder, most likely ETOH WD sz: Neurology consultation. Treat with IV ativan and iv keppra, pt was on 750mg keppra, will increase to 1000mg iv bid Paroxysmal Atrial fibrillation with RVR. IV Amiodarone, consult Cardiology, check tsh ETOH use, possible Withdrawal seizure: UDS, treat via CIWA protocol Hypotension post IV Cardizem: treat with IV fluids Acute metabolic encephalopathy due to the above, monitor bmp closely Hypertension. Resume antihypertensive medications once bp allows, bb should help the AFib. COPD. Compensated. DVT PPx
[2019-04-28] MEDS ORDERED: METOPROLOL TARTRATE 50 MG TAB PO SCH (14:00)
[2019-04-28] MEDS ORDERED: FOLIC ACID 1 MG TAB ONE (14:41)
[2019-04-28] MEDS: FOLIC ACID 1 MG TAB PO SCH (14:42)
[2019-04-28] MEDS: THIAMINE 100 MG TAB PO SCH (14:42)
--- NOTE | 2019-04-28 18:21 | Consultation ---
History of Present Illness Consult date: 04/28/19 Chief complaint: seizure History of present illness: This is a 73 YO M with known seizure disorder , history of TBI who presented tot he ED with seizure. Pt says he is compliant with medications. He is not a great historian but answers questions and follows commands. Suspect he is at baseline. Past History Past Medical History: other (TBI, seizures, hemorrhagic stroke, a fib, htn, alcohol abuse) Past Surgical History: No surgical history Social history: no significant social history Family history: no significant family history Medications and Allergies Allergies Allergy/AdvReac Type Severity Reaction Status Date / Time No Known Allergies Allergy Verified 04/28/19 07:49 Home Medications Medication Instructions Recorded Confirmed Last Taken Type Metoprolol [Lopressor TAB] 25 mg PO TID #90 tablet 01/22/18 02/15/19 02/14/19 Rx Lisinopril 5 mg PO QDAY 06/22/18 02/15/19 02/14/19 History Spiriva 7.5 mcg IH BID 06/22/18 02/15/19 02/14/19 History amLODIPine 10 mg PO QDAY 06/22/18 02/15/19 02/14/19 History guaiFENesin [Guaifenesin] 400 mg PO TID 06/22/18 02/15/19 02/14/19 History Amiodarone [Cordarone 200 MG TAB] 200 mg PO DAILY #30 tab 02/16/19 Unknown Rx Folic Acid [Folvite] 1 mg PO QDAY #30 tablet 03/15/19 Unknown Rx Thiamine [Vitamin B-1] 100 mg PO QDAY #30 tab 03/15/19 Unknown Rx chlordiazePOXIDE [Librium] 25 mg PO Q8H PRN #20 capsule 03/15/19 Unknown Rx levETIRAcetam 750 mg PO BID #60 03/15/19 Unknown Rx Active Meds: Active Medications Amiodarone HCl (Cordarone) 200 mg PO DAILY [facility] Folic Acid (Folvite) 1 mg PO QDAY [facility] Last Admin: 04/28/19 14:42 Dose: 1 mg Documented by: Amiodarone HCl 900 mg/ (Dextrose) 500 mls @ 33.333 mls/hr IV DIRECT [facility]; Protocol Last Titration: 04/28/19 16:28 Dose: 0.5 mg/min, 16.667 mls/hr Documented by: Levetiracetam 1,000 mg/ (Dextrose) 110 mls @ 400 mls/hr IV Q12HR [facility] Thiamine HCl (Vitamin B-1) 100 mg PO QDAY [facility] Last Admin: 04/28/19 14:42 Dose: 100 mg Documented by: Review of Systems Neurological: seizures Physical Examination - Vital Signs Vital Signs: Vital Signs Resp Pulse Ox 21 97 04/28/19 07:34 04/28/19 07:34 - Constitutional General appearance: comfortable - EENT EENT: Present: PERRL - Respiratory Respiratory: Present: lungs clear - Cardiovascular Cardiovascular: Present: regular rate Extremities: Present: no peripheral edema bilatateraly - Gastrointestinal Gastrointestinal: Present: normoactive bowel sounds - Integumentary Integumentary: Present: normal - Neurologic Cranial nerve examination: PERRL, V1/V2/V3 grossly intact, face symmetric, tongue midline Speech examination: intact Sensorimotor examination: intact Detailed motor examination: grossly full strength in Reflex and gait examination: other (unsteady) Results - Laboratory Findings CBC and BMP: 04/28/19 07:56 04/28/19 07:56 Abnormal Lab Findings: Abnormal Labs 04/28/19 04/28/19 07:56 07:56 MCV 83 L MCH 27 L RDW 17.9 H [place] % (Auto) 12.8 H Lymph # 1.1 L [place] # 1.0 H Carbon Dioxide 20 L Glucose 101 H ALT < 5 L Albumin 3.8 L Assessment and Plan This is a 73 YO M with breaktru seizures. REcommend: Labs look ok, no obvious cause for lowered seizure threshold, will increase Keppra to 1000 mg BID No need for EEG- known seizure disorder CT head with stable changes 24 hour observation and if remains seizure free fine for home form a neuro standpoint, follow up with neurologist outpatient New prescription for increased Keppra dose.
[2019-04-28] MEDS: levETIRAcetam 1,000 MG in DEXTROSE 5% IN WATER 100 ML IV SCH (23:28)
[2019-04-29] MEDS: AMIODARONE 900 MG in DEXTROSE 5% IN WATER 482 ML IV SCH (03:46)
--- NOTE | 2019-04-29 09:33 | Consultation ---
History of Present Illness Consult date: 04/29/19 Consult reason: atrial fibrillation History of present illness: This is a 73-year old male who presented to the emergency department with seizures. On presentation, he was found to be in rapid atrial fibrillation which was treated with intravenous Amiodarone. He has since reverted to a stable sinus rhythm. There are no complaints of chest pain, shortness of breath or palpitations. Patient has a history of paroxysmal atrial fibrillation, not on anticoagulation due to previous subarachnoid hemorrhage. Patient reports he is followed by the DC and is complaint with his medications. His latest cardiac workup shows a normal myocardial perfusion stress test and a normal left ventricular systolic function, ejection fraction 55% by echocardiogram. Past History Past Medical History: other (TBI, seizures, hemorrhagic stroke, a fib, htn, alcohol abuse) Social history: no significant social history Family history: no significant family history Medications and Allergies Allergies Allergy/AdvReac Type Severity Reaction Status Date / Time No Known Allergies Allergy Verified 04/28/19 07:49 Home Medications Medication Instructions Recorded Confirmed Last Taken Type Metoprolol [Lopressor TAB] 25 mg PO TID #90 tablet 01/22/18 02/15/19 02/14/19 Rx Lisinopril 5 mg PO QDAY 06/22/18 02/15/19 02/14/19 History Spiriva 7.5 mcg IH BID 06/22/18 02/15/19 02/14/19 History amLODIPine 10 mg PO QDAY 06/22/18 02/15/19 02/14/19 History guaiFENesin [Guaifenesin] 400 mg PO TID 06/22/18 02/15/19 02/14/19 History Amiodarone [Cordarone 200 MG TAB] 200 mg PO DAILY #30 tab 02/16/19 Unknown Rx Folic Acid [Folvite] 1 mg PO QDAY #30 tablet 03/15/19 Unknown Rx Thiamine [Vitamin B-1] 100 mg PO QDAY #30 tab 03/15/19 Unknown Rx chlordiazePOXIDE [Librium] 25 mg PO Q8H PRN #20 capsule 03/15/19 Unknown Rx levETIRAcetam 750 mg PO BID #60 03/15/19 Unknown Rx Active Meds: Active Medications Amiodarone HCl (Cordarone) 200 mg PO DAILY [facility] Folic Acid (Folvite) 1 mg PO QDAY [facility] Last Admin: 04/28/19 14:42 Dose: 1 mg Documented by: Amiodarone HCl 900 mg/ (Dextrose) 500 mls @ 33.333 mls/hr IV DIRECT [facility]; Protocol Last Admin: 04/29/19 03:46 Dose: 0.5 mg/min, 16.667 mls/hr Documented by: Levetiracetam 1,000 mg/ (Dextrose) 110 mls @ 400 mls/hr IV Q12HR [facility] Last Admin: 04/28/19 23:28 Dose: 400 mls/hr Documented by: Thiamine HCl (Vitamin B-1) 100 mg PO QDAY [facility] Last Admin: 04/28/19 14:42 Dose: 100 mg Documented by: Physical Examination Vital Signs Resp Pulse Ox 21 97 04/28/19 07:34 04/28/19 07:34 General appearance: no acute distress HEENT: Positive: PERRL Neck: Positive: trachea midline Cardiac: Positive: Reg Rate and Rhythm Lungs: Positive: Decreased Breath Sounds Results 04/28/19 07:56 04/28/19 07:56 Cardiac Enzymes 04/28/19 Range/Units 10:11 CK-MB (CK-2) 1.1 (0.0-4.0) ng/mL Assessment and Plan Seizure Paroxysmal Afib currently in sinus rhythm. On amiodarone for suppression. not on anticoagulation due to previous subarachnoid hemorrhage. Hypertension Normal myocardial perfusion stress test done 12/2015. Normal left ventricular systolic function, ejection fraction 55% by echocardiogram 09/2017. Continue amiodarone for suppression of paroxysmal atrial fibrillation. Stable cardiac triana.
[2019-04-29] MEDS: THIAMINE 100 MG TAB PO SCH (10:38)
[2019-04-29] MEDS: AMIODARONE 200 MG TAB PO SCH (10:38)
[2019-04-29] MEDS: FOLIC ACID 1 MG TAB PO SCH (10:38)
[2019-04-29] MEDS: levETIRAcetam 1,000 MG in DEXTROSE 5% IN WATER 100 ML IV SCH ×2 (11:15→21:19)
[2019-04-29 11:24] LABS: Hematocrit 43.7 % (35.5-45.6); Hemoglobin 13.9 gm/dl (11.8-15.2); Mean Corpuscular HGB Conc 32 % (32-34); Mean Corpuscular Volume 85 fl (84-94); Platelet Count 258 K/mm3 (140-440); Red Blood Count 5.14 M/mm3 (3.65-5.03); Red Cell Distribution Width 18.1 % (13.2-15.2)
[2019-04-29 11:50] LABS: BUN/Creatinine Ratio 11; Blood Urea Nitrogen 9 mg/dL (9-20); Calcium 9.6 mg/dL (8.4-10.2); Hemolysis Index 248
[2019-04-29] MEDS ORDERED: FLU VACC QUAD 2019-20 (3 YR UP)/PF 60 MCG/0.5 ML SYRINGE IM ONE (12:00)
--- NOTE | 2019-04-29 17:13 | Progress Note ---
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 fib, Asthma/COPD, hypertension, alcohol abuse with Alcholol withdrawal and tobacco dependency who presents to the emergency department with complaints of intermittent severe sz witnessed by his family (none present at the moment). History per chart as given to ED physician because patient is post seizure. Patient went for CT head and developed seizure after the test and he was given IV Ativan . Then developed AFib with RVR and was given IV Cardizem which caused hypotension. He was treat with IVF, Cardizem stopped and IV Amiodarone bolus and drip started. Patient states she's had a recent URI. Patient complains of cough for 5 days. Patient denies fever and chills. Patient denies shortness of breath. Patient complains of runny nose. Patient states his cough is a dry cough. Patient states his cough is improving. Patient likely has medical noncompliance issue such as in the past, need collateral history, so I called his son but his girlfriend, Renetta, whom lives with them, answered. He had 2 seizures, around 7am. She is not sure if he ran out of seizure medication but He was just in hospital last week, but she doesn't know which hospital he was admitted to. She is not a good historian either. * pCXR IMPRESSION: 1. No acute findings. * CT head without contrast IMPRESSION: No acute abnormality. Diffuse cerebral atrophy. No change when compared to 03/15/2019. Intractable Seizure disorder, most likely ETOH WD sz: Neurology consultation. Treat with IV ativan and iv keppra, pt was on 750mg keppra, will increase to 1000mg iv bid Paroxysmal Atrial fibrillation with RVR. IV Amiodarone, consult Cardiology, checked tsh ETOH use, possible Withdrawal seizure: UDS, treat via CIWA protocol Hypotension s/p post IV Cardizem, resolved Acute metabolic encephalopathy due to the above, monitor bmp closely Hypertension. Resume antihypertensive medications once bp allows, bb should help the AFib. COPD. Compensated. DVT PPx Still confused New issue 11 beat run of NSVT: follow up labs, Cardiology is following Disposition: continue inpatient care, d/c once no NSVT and cleared by Cardiology History Interval history: Patient was seen and examined. Follow-up on current diagnosis. No overnight events reported to me. Imaging, nursing note, chart, labs and old chart reviewed. Discussed with patient. Hospitalist Physical - Physical exam Narrative exam: Gen: thin frial, chronically disable appearing, lethargic, orientated x 1 HEENT: NCAT, EOMI, PERRL, OP Clear Neck: supple, no adenopathy, no thyromegaly, no JVD CVS/Heart: irregular irregular normal S1S2, pulses present bilaterally Chest/Lungs: CTA B, Symmetrical chest expansion, good air entry bilaterally GI/Abdomen: soft, NTND, good bowel sounds, no guarding or rebound /Bladder: no suprapubic tenderness, no CVA or paraspinal tenderness, right inguinal hernia Extermity/Skin: no c/c/e, no obvious rash MSK: FROM x 4 Neuro: CN 2-12 grossly intact, no new focal deficits Psych: sleeping - Constitutional Vitals: Temp Pulse Resp BP Pulse Ox 98.2 F 79 18 167/81 100 04/29/19 16:50 04/29/19 16:50 04/29/19 16:50 04/29/19 16:50 04/29/19 16:50 General appearance: Present: no acute distress Results - Labs CBC & Chem 7: 04/29/19 10:48 04/29/19 10:48 Labs: Laboratory Last Values WBC 7.8 K/mm3 (4.5-11.0) 04/29/19 10:48 RBC 5.14 M/mm3 (3.65-5.03) H 04/29/19 10:48 Hgb 13.9 gm/dl (11.8-15.2) 04/29/19 10:48 Hct 43.7 % (35.5-45.6) 04/29/19 10:48 MCV 85 fl (84-94) 04/29/19 10:48 MCH 27 pg (28-32) L 04/29/19 10:48 MCHC 32 % (32-34) 04/29/19 10:48 RDW 18.1 % (13.2-15.2) H 04/29/19 10:48 Plt Count 258 K/mm3 (140-440) 04/29/19 10:48 Lymph % (Auto) 14.4 % (13.4-35.0) 04/28/19 07:56 [place] % (Auto) 12.8 % (0.0-7.3) H 04/28/19 07:56 Eos % (Auto) 2.1 % (0.0-4.3) 04/28/19 07:56 Baso % (Auto) 0.7 % (0.0-1.8) 04/28/19 07:56 Lymph # 1.1 K/mm3 (1.2-5.4) L 04/28/19 07:56 [place] # 1.0 K/mm3 (0.0-0.8) H 04/28/19 07:56 Eos # 0.2 K/mm3 (0.0-0.4) 04/28/19 07:56 Baso # 0.1 K/mm3 (0.0-0.1) 04/28/19 07:56 Seg Neutrophils % 70.0 % (40.0-70.0) 04/28/19 07:56 Seg Neutrophils # 5.5 K/mm3 (1.8-7.7) 04/28/19 07:56 Sodium 138 mmol/L (137-145) 04/29/19 10:48 Potassium 4.6 mmol/L (3.6-5.0) 04/29/19 10:48 Chloride 103.2 mmol/L (98-107) 04/29/19 10:48 Carbon Dioxide 17 mmol/L (22-30) L 04/29/19 10:48 Anion Gap 22 mmol/L 04/29/19 10:48 BUN 9 mg/dL (9-20) 04/29/19 10:48 Creatinine 0.8 mg/dL (0.8-1.5) 04/29/19 10:48 Estimated GFR > 60 ml/min 04/29/19 10:48 BUN/Creatinine Ratio 11 % 04/29/19 10:48 Glucose 73 mg/dL (75-100) L 04/29/19 10:48 Calcium 9.6 mg/dL (8.4-10.2) 04/29/19 10:48 Magnesium 2.10 mg/dL (1.7-2.3) 04/29/19 10:48 Total Bilirubin 0.90 mg/dL (0.1-1.2) 04/28/19 07:56 AST 18 units/L (5-40) 04/28/19 07:56 ALT < 5 units/L (7-56) L 04/28/19 07:56 Alkaline Phosphatase 77 units/L (35-129) 04/28/19 07:56 Total Creatine Kinase 77 units/L (55-170) 04/28/19 10:11 CK-MB (CK-2) 1.1 ng/mL (0.0-4.0) 04/28/19 10:11 CK-MB (CK-2) Rel Index 1.4 (0-4) 04/28/19 10:11 Troponin T < 0.010 ng/mL (0.00-0.029) 04/28/19 10:11 Total Protein 7.9 g/dL (6.3-8.2) 04/28/19 07:56 Albumin 3.8 g/dL (3.9-5) L 04/28/19 07:56 Albumin/Globulin Ratio 0.9 % 04/28/19 07:56 TSH 0.196 mlU/mL (0.270-4.200) L 04/29/19 10:48 Thyroxine (T4) 6.5 ug/dL (4.0-12.0) 04/28/19 10:11 Urine Color Yellow (Yellow) 04/28/19 10:11 Urine Turbidity Clear (Clear) 04/28/19 10:11 Urine pH 5.0 (5.0-7.0) 04/28/19 10:11 Ur Specific [place] 1.019 (1.003-1.030) 04/28/19 10:11 Urine Protein 100 mg/dl mg/dL (Negative) 04/28/19 10:11 Urine Glucose (UA) Neg mg/dL (Negative) 04/28/19 10:11 Urine Ketones Neg mg/dL (Negative) 04/28/19 10:11 Urine Blood Neg (Negative) 04/28/19 10:11 Urine Nitrite Neg (Negative) 04/28/19 10:11 Urine Bilirubin Neg (Negative) 04/28/19 10:11 Urine Urobilinogen 4.0 mg/dL (<2.0) 04/28/19 10:11 Ur Leukocyte Esterase Neg (Negative) 04/28/19 10:11 Urine WBC (Auto) 1.0 /HPF (0.0-6.0) 04/28/19 10:11 Urine RBC (Auto) 3.0 /HPF (0.0-6.0) 04/28/19 10:11 Urine Bacteria (Auto) 1+ /HPF (Negative) 04/28/19 10:11 Hyaline Casts 8 /LPF 04/28/19 10:11 Urine Opiates Screen Presumptive negative 04/28/19 10:11 Urine Methadone Screen Presumptive negative 04/28/19 10:11 Ur Barbiturates Screen Presumptive negative 04/28/19 10:11 Ur Phencyclidine Scrn Presumptive negative 04/28/19 10:11 Ur Amphetamines Screen Presumptive negative 04/28/19 10:11 U Benzodiazepines Scrn Presumptive negative 04/28/19 10:11 Urine Cocaine Screen Presumptive negative 04/28/19 10:11 U Marijuana (THC) Screen Presumptive positive 04/28/19 10:11 Drugs of Abuse Note Disclamer 04/28/19 10:11 Active Medications - Current Medications Current Medications: Generic Name Dose Route Start Last Admin Trade Name Rosa PRN Reason Stop Dose Admin Amiodarone HCl 200 mg 04/29/19 10:00 04/29/19 10:38 Cordarone PO 200 mg DAILY [facility] Administration Folic Acid 1 mg 04/28/19 14:00 04/29/19 10:38 Folvite PO 1 mg QDAY [facility] Administration Levetiracetam 1,000 mg/ 110 mls @ 400 mls/hr 04/28/19 22:00 04/29/19 11:15 Dextrose IV 400 mls/hr Q12HR [facility] Administration Thiamine HCl 100 mg 04/28/19 14:00 04/29/19 10:38 Vitamin B-1 PO 100 mg QDAY [facility] Administration
[2019-04-29] MEDS: ACETAMINOPHEN 325 MG TAB PO PRN (22:23)
[2019-04-29] MEDS: guaiFENesin ER 600 MG TAB PO SCH (22:23)
--- NOTE | 2019-04-29 22:29 | Progress Note ---
Assessment and Plan Seizure Paroxysmal Afib currently in sinus rhythm. On amiodarone for suppression. not on anticoagulation due to previous subarachnoid hemorrhage. Hypertension Normal myocardial perfusion stress test done 12/2015. Normal left ventricular systolic function, ejection fraction 55% by echocardiogram 09/2017. Continue amiodarone for suppression of paroxysmal atrial fibrillation. Stable cardiac triana. Subjective Date of service: 04/30/19 Interval history: No acute events. Resting comfortably. No chest pain or SOB. Objective Vital Signs Temp Pulse Resp BP Pulse Ox 04/29/19 19:29 98.1 F 74 18 157/85 96 04/29/19 16:50 98.2 F 79 18 167/81 100 04/29/19 13:14 98.2 F 69 18 152/75 100 04/29/19 09:23 98.5 F 65 18 178/83 94 04/29/19 08:00 65 04/29/19 04:12 98.3 F 63 18 139/92 100 04/29/19 00:00 55 L 04/28/19 23:18 98.2 F 64 18 180/77 100 - Physical Examination HEENT: Positive: PERRL Neck: Positive: trachea midline - Labs and Meds CBC 04/29/19 Range/Units 10:48 WBC 7.8 (4.5-11.0) K/mm3 RBC 5.14 H (3.65-5.03) M/mm3 Hgb 13.9 (11.8-15.2) gm/dl Hct 43.7 (35.5-45.6) % Plt Count 258 (140-440) K/mm3 Comprehensive Metabolic Panel 04/29/19 Range/Units 10:48 Sodium 138 (137-145) mmol/L Potassium 4.6 (3.6-5.0) mmol/L Chloride 103.2 (98-107) mmol/L Carbon Dioxide 17 L (22-30) mmol/L BUN 9 (9-20) mg/dL Creatinine 0.8 (0.8-1.5) mg/dL Glucose 73 L (75-100) mg/dL Calcium 9.6 (8.4-10.2) mg/dL
[2019-04-30] MEDS: ACETAMINOPHEN 325 MG TAB PO PRN (06:45)
[2019-04-30] MEDS ORDERED: LORazepam 2 MG/ML VIAL IM ONE (09:35)
[2019-04-30] MEDS: FOLIC ACID 1 MG TAB PO SCH (09:47)
[2019-04-30] MEDS: AMIODARONE 200 MG TAB PO SCH (09:47)
[2019-04-30] MEDS: guaiFENesin ER 600 MG TAB PO SCH ×2 (09:47→21:18)
[2019-04-30] MEDS: THIAMINE 100 MG TAB PO SCH (09:47)
[2019-04-30] MEDS ORDERED: LORazepam 2 MG TAB PO PRN (17:11)
[2019-04-30] MEDS ORDERED: chlordiazePOXIDE 25 MG CAP PO PRN (17:11)
--- NOTE | 2019-04-30 17:11 | Progress Note ---
Assessment and Plan - Patient Problems (1) Altered mental status Current Visit: Yes Status: Acute Qualifiers: Altered mental status type: unspecified Qualified Code(s): R41.82 - Altered mental status, unspecified Plan to address problem: All secondary to alcohol withdrawal and post seizure activity. (2) Seizure Current Visit: Yes Status: Acute Plan to address problem: Patient refusing IV is not calm enough and remains combative to let person get a line man. We'll change Her to 1000 mg by mouth for now. She still needs to be more aggressive with alcohol withdrawal. Add patient was CIWA protocol and will need restraints. (3) Acute on chronic renal failure Current Visit: No Status: Acute Plan to address problem: Continue troponin I resulting anemia. Correcting with IV volume replacement. (4) Alcohol withdrawal Current Visit: No Status: Acute Plan to address problem: Shunt with alcohol withdrawal now. We'll place patient on CIWA protocol and treat accordingly. (5) Delirium tremens Current Visit: No Status: Acute History Interval history: Patient Hospital course complicated by extreme agitation by patient. Patient going to withdrawal symptoms. Negative alcohol. She did fall. Actually he fail on nurse and did not elicit did not injure himself. Patient therefore require restraints. And so he does not harm himself. Hospital course complicated by a fall today. And what appears to be DTs the beginning of alcohol withdrawal. Patient also was noted to have 11 beat run of V. tach yesterday. Patient also was seen for alcohol withdrawal seizures has not had any seizures today the patient did refuse medications. Refused IV he didn't admit that he will take Keppra by mouth. Hospitalist Physical - Constitutional Vitals: Temp Pulse Resp BP Pulse Ox 98.4 F 76 18 165/98 95 04/30/19 08:59 04/30/19 11:00 04/30/19 08:59 04/30/19 08:59 04/30/19 08:59 General appearance: Present: no acute distress - EENT Eyes: Present: PERRL, EOM intact ENT: hearing intact, clear oral mucosa, dentition normal - Neck Neck: Present: supple, normal ROM - Respiratory Respiratory effort: normal Respiratory: bilateral: CTA - Cardiovascular Rhythm: regular Heart Sounds: Present: S1 & S2 - Extremities Extremities: no ischemia, pulses intact, pulses symmetrical, No edema, normal temperature, normal color Peripheral Pulses: within normal limits - Abdominal General gastrointestinal: soft, non-tender, non-distended, normal bowel sounds - Integumentary Integumentary: Present: clear, warm, dry - Psychiatric Psychiatric: appropriate mood/affect, intact judgment & insight - Neurologic Neurologic: CNII-XII intact, focal deficits, moves all extremities Results - Labs CBC & Chem 7: 04/29/19 10:48 04/29/19 10:48 Labs: Laboratory Last Values WBC 7.8 K/mm3 (4.5-11.0) 04/29/19 10:48 RBC 5.14 M/mm3 (3.65-5.03) H 04/29/19 10:48 Hgb 13.9 gm/dl (11.8-15.2) 04/29/19 10:48 Hct 43.7 % (35.5-45.6) 04/29/19 10:48 MCV 85 fl (84-94) 04/29/19 10:48 MCH 27 pg (28-32) L 04/29/19 10:48 MCHC 32 % (32-34) 04/29/19 10:48 RDW 18.1 % (13.2-15.2) H 04/29/19 10:48 Plt Count 258 K/mm3 (140-440) 04/29/19 10:48 Lymph % (Auto) 14.4 % (13.4-35.0) 04/28/19 07:56 [place] % (Auto) 12.8 % (0.0-7.3) H 04/28/19 07:56 Eos % (Auto) 2.1 % (0.0-4.3) 04/28/19 07:56 Baso % (Auto) 0.7 % (0.0-1.8) 04/28/19 07:56 Lymph # 1.1 K/mm3 (1.2-5.4) L 04/28/19 07:56 [place] # 1.0 K/mm3 (0.0-0.8) H 04/28/19 07:56 Eos # 0.2 K/mm3 (0.0-0.4) 04/28/19 07:56 Baso # 0.1 K/mm3 (0.0-0.1) 04/28/19 07:56 Seg Neutrophils % 70.0 % (40.0-70.0) 04/28/19 07:56 Seg Neutrophils # 5.5 K/mm3 (1.8-7.7) 04/28/19 07:56 Sodium 138 mmol/L (137-145) 04/29/19 10:48 Potassium 4.6 mmol/L (3.6-5.0) 04/29/19 10:48 Chloride 103.2 mmol/L (98-107) 04/29/19 10:48 Carbon Dioxide 17 mmol/L (22-30) L 04/29/19 10:48 Anion Gap 22 mmol/L 04/29/19 10:48 BUN 9 mg/dL (9-20) 04/29/19 10:48 Creatinine 0.8 mg/dL (0.8-1.5) 04/29/19 10:48 Estimated GFR > 60 ml/min 04/29/19 10:48 BUN/Creatinine Ratio 11 % 04/29/19 10:48 Glucose 73 mg/dL (75-100) L 04/29/19 10:48 Calcium 9.6 mg/dL (8.4-10.2) 04/29/19 10:48 Magnesium 2.10 mg/dL (1.7-2.3) 04/29/19 10:48 Total Bilirubin 0.90 mg/dL (0.1-1.2) 04/28/19 07:56 AST 18 units/L (5-40) 04/28/19 07:56 ALT < 5 units/L (7-56) L 04/28/19 07:56 Alkaline Phosphatase 77 units/L (35-129) 04/28/19 07:56 Total Creatine Kinase 77 units/L (55-170) 04/28/19 10:11 CK-MB (CK-2) 1.1 ng/mL (0.0-4.0) 04/28/19 10:11 CK-MB (CK-2) Rel Index 1.4 (0-4) 04/28/19 10:11 Troponin T < 0.010 ng/mL (0.00-0.029) 04/28/19 10:11 Total Protein 7.9 g/dL (6.3-8.2) 04/28/19 07:56 Albumin 3.8 g/dL (3.9-5) L 04/28/19 07:56 Albumin/Globulin Ratio 0.9 % 04/28/19 07:56 TSH 0.196 mlU/mL (0.270-4.200) L 04/29/19 10:48 Thyroxine (T4) 6.5 ug/dL (4.0-12.0) 04/28/19 10:11 Urine Color Yellow (Yellow) 04/28/19 10:11 Urine Turbidity Clear (Clear) 04/28/19 10:11 Urine pH 5.0 (5.0-7.0) 04/28/19 10:11 Ur Specific [place] 1.019 (1.003-1.030) 04/28/19 10:11 Urine Protein 100 mg/dl mg/dL (Negative) 04/28/19 10:11 Urine Glucose (UA) Neg mg/dL (Negative) 04/28/19 10:11 Urine Ketones Neg mg/dL (Negative) 04/28/19 10:11 Urine Blood Neg (Negative) 04/28/19 10:11 Urine Nitrite Neg (Negative) 04/28/19 10:11 Urine Bilirubin Neg (Negative) 04/28/19 10:11 Urine Urobilinogen 4.0 mg/dL (<2.0) 04/28/19 10:11 Ur Leukocyte Esterase Neg (Negative) 04/28/19 10:11 Urine WBC (Auto) 1.0 /HPF (0.0-6.0) 04/28/19 10:11 Urine RBC (Auto) 3.0 /HPF (0.0-6.0) 04/28/19 10:11 Urine Bacteria (Auto) 1+ /HPF (Negative) 04/28/19 10:11 Hyaline Casts 8 /LPF 04/28/19 10:11 Urine Opiates Screen Presumptive negative 04/28/19 10:11 Urine Methadone Screen Presumptive negative 04/28/19 10:11 Ur Barbiturates Screen Presumptive negative 04/28/19 10:11 Ur Phencyclidine Scrn Presumptive negative 04/28/19 10:11 Ur Amphetamines Screen Presumptive negative 04/28/19 10:11 U Benzodiazepines Scrn Presumptive negative 04/28/19 10:11 Urine Cocaine Screen Presumptive negative 04/28/19 10:11 U Marijuana (THC) Screen Presumptive positive 04/28/19 10:11 Drugs of Abuse Note Disclamer 04/28/19 10:11 Active Medications - Current Medications Current Medications: Generic Name Dose Route Start Last Admin Trade Name Rosa PRN Reason Stop Dose Admin Acetaminophen 650 mg 04/29/19 22:07 04/30/19 06:45 Tylenol PO 650 mg Q4H PRN Administration Pain, Mild (1-3) Amiodarone HCl 200 mg 04/29/19 10:00 04/30/19 09:47 Cordarone PO 200 mg DAILY CHAPIS Administration Folic Acid 1 mg 04/28/19 14:00 04/30/19 09:47 Folvite PO 1 mg QDAY CHAPIS Administration Guaifenesin 600 mg 04/29/19 23:00 04/30/19 09:47 Mucinex Er PO 600 mg BID CHAPIS Administration Levetiracetam 1,000 mg/ 110 mls @ 400 mls/hr 04/28/19 22:00 04/29/19 21:19 Dextrose IV 400 mls/hr Q12HR CHAPIS Administration Thiamine HCl 100 mg 04/28/19 14:00 04/30/19 09:47 Vitamin B-1 PO 100 mg QDAY CHAPIS Administration
[2019-04-30] MEDS: levETIRAcetam 1,000 MG in DEXTROSE 5% IN WATER 100 ML IV SCH ×2 (18:34→21:18)
[2019-04-30] MEDS ORDERED: LISINOPRIL 5 MG PO SCH (19:15)
[2019-04-30] MEDS ORDERED: hydrALAZINE 20 MG/1 ML INJ IV PRN (19:16)
[2019-04-30] MEDS: LISINOPRIL 5 MG TAB PO SCH ×2 (19:43→21:26)
[2019-04-30] MEDS: amLODIPine 10 MG TAB PO SCH (19:44)
[2019-04-30] MEDS ORDERED: LORazepam 2 MG/ML VIAL IV PRN ×2 (22:46)
--- NOTE | 2019-05-01 00:15 | Progress Note ---
Assessment and Plan Seizure Paroxysmal Afib currently in sinus rhythm. On amiodarone for suppression. not on anticoagulation due to previous subarachnoid hemorrhage. Hypertension Normal myocardial perfusion stress test done 12/2015. Normal left ventricular systolic function, ejection fraction 55% by echocardiogram 09/2017. Continue amiodarone for suppression of paroxysmal atrial fibrillation. Stable cardiac triana. Subjective Date of service: 05/01/19 Interval history: No acute events. Resting comfortably. No chest pain or SOB. Objective Vital Signs Temp Pulse Pulse Resp BP Pulse Ox 04/30/19 20:42 92 H 190/92 100 04/30/19 16:55 95 H 198/105 96 04/30/19 11:00 76 04/30/19 08:59 98.4 F 76 18 165/98 95 04/30/19 04:06 98.2 F 69 18 158/77 99 - Physical Examination HEENT: Positive: PERRL Neck: Positive: trachea midline
[2019-05-01] MEDS: levETIRAcetam 1,000 MG in DEXTROSE 5% IN WATER 100 ML IV SCH ×2 (11:03→22:58)
[2019-05-01] MEDS: amLODIPine 10 MG TAB PO SCH (11:03)
[2019-05-01] MEDS: guaiFENesin ER 600 MG TAB PO SCH ×2 (11:03→22:50)
[2019-05-01] MEDS: AMIODARONE 200 MG TAB PO SCH (11:03)
[2019-05-01] MEDS: LISINOPRIL 5 MG TAB PO SCH (11:04)
[2019-05-01] MEDS: FOLIC ACID 1 MG TAB PO SCH (11:04)
[2019-05-01] MEDS: THIAMINE 100 MG TAB PO SCH (11:04)
--- NOTE | 2019-05-01 14:56 | Progress Note ---
Assessment and Plan - Patient Problems (1) Altered mental status Current Visit: Yes Status: Acute Qualifiers: Altered mental status type: unspecified Qualified Code(s): R41.82 - Altered mental status, unspecified Plan to address problem: Patient altered mental status was secondary to EtOH withdrawal. Appears to be doing better now on CIWA protocol. Received Ativan resting comfortably. Ho pefully tomorrow patient will be more sound and judgment and less agitated. (2) Seizure Current Visit: Yes Status: Acute Plan to address problem: Alcohol withdrawal seizure. No further seizure stable with Keppra. (3) Acute on chronic renal failure Current Visit: No Status: Acute Plan to address problem: Continue troponin I resulting anemia. Correcting with IV volume replacement. (4) Alcohol withdrawal Current Visit: No Status: Acute Plan to address problem: Shunt with alcohol withdrawal now. We'll place patient on CIWA protocol and treat accordingly. (5) Delirium tremens Current Visit: No Status: Acute (6) Cellulitis Current Visit: Yes Status: Acute Plan to address problem: Patient has swelling of right hand and into wrists. Edematous and erythematous dorsum of right hand. We'll obtain x-ray treatment for cellulitis. (7) Paroxysmal atrial fibrillation Current Visit: No Status: Chronic Plan to address problem: Patient regular in normal sinus today. No anticoagulation secondary to recent history of subarachnoid hemorrhage and increased risk for falling. Risk outweigh benefits. History Interval history: Patient Hospital course complicated by worsening confusion and agitation. No further seizure disorder. Patient sleeping after Ativan for agitation. Delirium tremors. EtOH withdrawal. Hospitalist Physical - Constitutional Vitals: Temp Pulse Resp BP Pulse Ox 98.4 F 86 16 146/77 98 05/01/19 12:31 05/01/19 12:31 05/01/19 12:31 05/01/19 12:31 05/01/19 12:31 General appearance: Present: no acute distress - EENT Eyes: Present: PERRL, EOM intact ENT: hearing intact, clear oral mucosa - Neck Neck: Present: supple, normal ROM - Respiratory Respiratory: bilateral: CTA - Cardiovascular Rhythm: regular - Extremities Extremities: no ischemia, pulses intact, pulses symmetrical, No edema Extremity abnormal: other (right hand swollen warm to touch.) Peripheral Pulses: within normal limits - Abdominal General gastrointestinal: soft, non-tender, normal bowel sounds, no hepatomegaly, no splenomegaly - Integumentary Integumentary: Present: clear, warm, dry - Psychiatric Psychiatric: appropriate mood/affect, intact judgment & insight - Neurologic Neurologic: moves all extremities, other (right hand swelling warm to touch edematous.) Results - Labs CBC & Chem 7: 04/29/19 10:48 04/29/19 10:48 Labs: Laboratory Last Values WBC 7.8 K/mm3 (4.5-11.0) 04/29/19 10:48 RBC 5.14 M/mm3 (3.65-5.03) H 04/29/19 10:48 Hgb 13.9 gm/dl (11.8-15.2) 04/29/19 10:48 Hct 43.7 % (35.5-45.6) 04/29/19 10:48 MCV 85 fl (84-94) 04/29/19 10:48 MCH 27 pg (28-32) L 04/29/19 10:48 MCHC 32 % (32-34) 04/29/19 10:48 RDW 18.1 % (13.2-15.2) H 04/29/19 10:48 Plt Count 258 K/mm3 (140-440) 04/29/19 10:48 Lymph % (Auto) 14.4 % (13.4-35.0) 04/28/19 07:56 [place] % (Auto) 12.8 % (0.0-7.3) H 04/28/19 07:56 Eos % (Auto) 2.1 % (0.0-4.3) 04/28/19 07:56 Baso % (Auto) 0.7 % (0.0-1.8) 04/28/19 07:56 Lymph # 1.1 K/mm3 (1.2-5.4) L 04/28/19 07:56 [place] # 1.0 K/mm3 (0.0-0.8) H 04/28/19 07:56 Eos # 0.2 K/mm3 (0.0-0.4) 04/28/19 07:56 Baso # 0.1 K/mm3 (0.0-0.1) 04/28/19 07:56 Seg Neutrophils % 70.0 % (40.0-70.0) 04/28/19 07:56 Seg Neutrophils # 5.5 K/mm3 (1.8-7.7) 04/28/19 07:56 Sodium 138 mmol/L (137-145) 04/29/19 10:48 Potassium 4.6 mmol/L (3.6-5.0) 04/29/19 10:48 Chloride 103.2 mmol/L (98-107) 04/29/19 10:48 Carbon Dioxide 17 mmol/L (22-30) L 04/29/19 10:48 Anion Gap 22 mmol/L 04/29/19 10:48 BUN 9 mg/dL (9-20) 04/29/19 10:48 Creatinine 0.8 mg/dL (0.8-1.5) 04/29/19 10:48 Estimated GFR > 60 ml/min 04/29/19 10:48 BUN/Creatinine Ratio 11 % 04/29/19 10:48 Glucose 73 mg/dL (75-100) L 04/29/19 10:48 POC Glucose 72 (70-105) 05/01/19 12:39 Calcium 9.6 mg/dL (8.4-10.2) 04/29/19 10:48 Magnesium 2.10 mg/dL (1.7-2.3) 04/29/19 10:48 Total Bilirubin 0.90 mg/dL (0.1-1.2) 04/28/19 07:56 AST 18 units/L (5-40) 04/28/19 07:56 ALT < 5 units/L (7-56) L 04/28/19 07:56 Alkaline Phosphatase 77 units/L (35-129) 04/28/19 07:56 Total Creatine Kinase 77 units/L (55-170) 04/28/19 10:11 CK-MB (CK-2) 1.1 ng/mL (0.0-4.0) 04/28/19 10:11 CK-MB (CK-2) Rel Index 1.4 (0-4) 04/28/19 10:11 Troponin T < 0.010 ng/mL (0.00-0.029) 04/28/19 10:11 Total Protein 7.9 g/dL (6.3-8.2) 04/28/19 07:56 Albumin 3.8 g/dL (3.9-5) L 04/28/19 07:56 Albumin/Globulin Ratio 0.9 % 04/28/19 07:56 TSH 0.196 mlU/mL (0.270-4.200) L 04/29/19 10:48 Thyroxine (T4) 6.5 ug/dL (4.0-12.0) 04/28/19 10:11 Urine Color Yellow (Yellow) 04/28/19 10:11 Urine Turbidity Clear (Clear) 04/28/19 10:11 Urine pH 5.0 (5.0-7.0) 04/28/19 10:11 Ur Specific [place] 1.019 (1.003-1.030) 04/28/19 10:11 Urine Protein 100 mg/dl mg/dL (Negative) 04/28/19 10:11 Urine Glucose (UA) Neg mg/dL (Negative) 04/28/19 10:11 Urine Ketones Neg mg/dL (Negative) 04/28/19 10:11 Urine Blood Neg (Negative) 04/28/19 10:11 Urine Nitrite Neg (Negative) 04/28/19 10:11 Urine Bilirubin Neg (Negative) 04/28/19 10:11 Urine Urobilinogen 4.0 mg/dL (<2.0) 04/28/19 10:11 Ur Leukocyte Esterase Neg (Negative) 04/28/19 10:11 Urine WBC (Auto) 1.0 /HPF (0.0-6.0) 04/28/19 10:11 Urine RBC (Auto) 3.0 /HPF (0.0-6.0) 04/28/19 10:11 Urine Bacteria (Auto) 1+ /HPF (Negative) 04/28/19 10:11 Hyaline Casts 8 /LPF 04/28/19 10:11 Urine Opiates Screen Presumptive negative 04/28/19 10:11 Urine Methadone Screen Presumptive negative 04/28/19 10:11 Ur Barbiturates Screen Presumptive negative 04/28/19 10:11 Ur Phencyclidine Scrn Presumptive negative 04/28/19 10:11 Ur Amphetamines Screen Presumptive negative 04/28/19 10:11 U Benzodiazepines Scrn Presumptive negative 04/28/19 10:11 Urine Cocaine Screen Presumptive negative 04/28/19 10:11 U Marijuana (THC) Screen Presumptive positive 04/28/19 10:11 Drugs of Abuse Note Disclamer 04/28/19 10:11 Active Medications - Current Medications Current Medications: Generic Name Dose Route Start Last Admin Trade Name Rosa PRN Reason Stop Dose Admin Acetaminophen 650 mg 04/29/19 22:07 04/30/19 06:45 Tylenol PO 650 mg Q4H PRN Administration Pain, Mild (1-3) Amiodarone HCl 200 mg 04/29/19 10:00 05/01/19 11:03 Cordarone PO 200 mg DAILY CHAPIS Administration Amlodipine Besylate 10 mg 04/30/19 20:14 05/01/19 11:03 Amlodipine PO 10 mg QDAY CHAPIS Administration Folic Acid 1 mg 04/28/19 14:00 05/01/19 11:04 Folvite PO 1 mg QDAY CHAPIS Administration Guaifenesin 600 mg 04/29/19 23:00 05/01/19 11:03 Mucinex Er PO 600 mg BID CHAPIS Administration Hydralazine HCl 10 mg 04/30/19 19:16 05/01/19 00:27 Apresoline IV 10 mg Q3H PRN Administration Blood Pressure Levetiracetam 1,000 mg/ 110 mls @ 400 mls/hr 04/28/19 22:00 05/01/19 11:03 Dextrose IV 400 mls/hr Q12HR CHAPIS Administration Lisinopril 5 mg 04/30/19 21:00 05/01/19 11:04 Zestril PO 5 mg QDAY CHAPIS Administration Lorazepam 2 mg 04/30/19 22:46 05/01/19 00:27 Ativan IV 2 mg Q1H PRN Administration CIWA-Ar 8-15 Lorazepam 4 mg 04/30/19 22:46 Ativan IV Q1H PRN CIWA-Ar 16-25 Thiamine HCl 100 mg 04/28/19 14:00 05/01/19 11:04 Vitamin B-1 PO 100 mg QDAY CHAPIS Administration
--- NOTE | 2019-05-01 15:50 | XRay Report ---
RIGHT HAND 3 VIEWS INDICATION / CLINICAL INFORMATION: Right hand pain and swelling with limited range of motion. COMPARISON: None available. FINDINGS: BONES and JOINT(S): No acute fracture or subluxation. No significant arthritis. SOFT TISSUES: Moderate generalized edema is seen along the hand and wrist. ADDITIONAL FINDINGS: None. IMPRESSION: Moderate right hand and wrist edema without an acute osseous abnormality. Signer Name: Earl Griggs MD Signed: 05/01/2019 3:46 PM Workstation Name: [id number]
[2019-05-01] MEDS: CLINDAMYCIN 600 MG/50 mL 600 MG/50 ML BAG IV SCH (16:54)
[2019-05-02] MEDS: CLINDAMYCIN 600 MG/50 mL 600 MG/50 ML BAG IV SCH ×3 (00:03→16:51)
[2019-05-02 07:39] LABS: Basophils # (Auto) 0.1 K/mm3 (0.0-0.1); Basophils % (Auto) 0.5 % (0.0-1.8); Eosinophils # (Auto) 0.1 K/mm3 (0.0-0.4); Eosinophils % (Auto) 0.4 % (0.0-4.3); Hematocrit 38.3 % (35.5-45.6); Hemoglobin 12.2 gm/dl (11.8-15.2); Lymphocytes # (Auto) 1.6 K/mm3 (1.2-5.4); Lymphocytes % (Auto) 12.2 % (13.4-35.0); Mean Corpuscular HGB Conc 32 % (32-34); Mean Corpuscular Volume 83 fl (84-94); Monocytes # (Auto) 1.5 K/mm3 (0.0-0.8); Monocytes % (Auto) 11.7 % (0.0-7.3); Platelet Count 299 K/mm3 (140-440)
[2019-05-02 08:21] LABS: BUN/Creatinine Ratio 14; Blood Urea Nitrogen 15 mg/dL (9-20); Calcium 9.1 mg/dL (8.4-10.2); Hemolysis Index 21
--- NOTE | 2019-05-02 08:30 | Progress Note ---
<PEPPER FERNANDEZ - Last Filed: 05/02/19 10:00> Assessment and Plan Seizure Paroxysmal Afib currently in sinus rhythm. On amiodarone for suppression. not on anticoagulation due to previous subarachnoid hemorrhage. Hypertension Hx of alcohol addition Normal myocardial perfusion stress test done 12/2015. Normal left ventricular systolic function, ejection fraction 55% by echocardiogram 09/2017. Continue amiodarone for suppression of paroxysmal atrial fibrillation. Stable cardiac triana. Subjective Date of service: 05/02/19 Interval history: No cardiac complaints. Objective Vital Signs Temp Pulse Resp BP Pulse Ox 05/02/19 04:05 98.2 F 85 24 117/64 95 05/01/19 20:19 98.8 F 93 H 24 121/72 92 05/01/19 16:26 99.3 F 86 16 115/68 95 05/01/19 12:31 98.4 F 86 16 146/77 98 05/01/19 11:04 142/76 05/01/19 11:03 142/78 05/01/19 11:00 16 05/01/19 09:36 98.5 F 16 142/78 - Physical Examination HEENT: Positive: PERRL Neck: Positive: trachea midline - Labs and Meds CBC 05/02/19 Range/Units 06:31 WBC 13.2 H (4.5-11.0) K/mm3 RBC 4.60 (3.65-5.03) M/mm3 Hgb 12.2 (11.8-15.2) gm/dl Hct 38.3 (35.5-45.6) % Plt Count 299 (140-440) K/mm3 Lymph # 1.6 (1.2-5.4) K/mm3 [place] # 1.5 H (0.0-0.8) K/mm3 Eos # 0.1 (0.0-0.4) K/mm3 Baso # 0.1 (0.0-0.1) K/mm3 Comprehensive Metabolic Panel 05/02/19 Range/Units 06:31 Sodium 139 (137-145) mmol/L Potassium 3.3 L D (3.6-5.0) mmol/L Chloride 101.2 (98-107) mmol/L Carbon Dioxide 19 L (22-30) mmol/L BUN 15 (9-20) mg/dL Creatinine 1.1 (0.8-1.5) mg/dL Glucose 100 (75-100) mg/dL Calcium 9.1 (8.4-10.2) mg/dL <SANDEEP MCKEON - Last Filed: 05/02/19 13:20> Assessment and Plan I've seen and evaluated the patient agree with the assessment and plan. The patient has a history of paroxysmal atrial fibrillation which is rate controlled with amiodarone. Continue current medical therapy. Objective Vital Signs Temp Pulse Resp BP Pulse Ox 05/02/19 10:36 67 111/66 05/02/19 10:34 100.0 F H 18 05/02/19 09:27 18 05/02/19 04:05 98.2 F 85 24 117/64 95 05/01/19 20:19 98.8 F 93 H 24 121/72 92 05/01/19 16:26 99.3 F 86 16 115/68 95 - Labs and Meds CBC 05/02/19 Range/Units 06:31 WBC 13.2 H (4.5-11.0) K/mm3 RBC 4.60 (3.65-5.03) M/mm3 Hgb 12.2 (11.8-15.2) gm/dl Hct 38.3 (35.5-45.6) % Plt Count 299 (140-440) K/mm3 Lymph # 1.6 (1.2-5.4) K/mm3 [place] # 1.5 H (0.0-0.8) K/mm3 Eos # 0.1 (0.0-0.4) K/mm3 Baso # 0.1 (0.0-0.1) K/mm3 Comprehensive Metabolic Panel 05/02/19 Range/Units 06:31 Sodium 139 (137-145) mmol/L Potassium 3.3 L D (3.6-5.0) mmol/L Chloride 101.2 (98-107) mmol/L Carbon Dioxide 19 L (22-30) mmol/L BUN 15 (9-20) mg/dL Creatinine 1.1 (0.8-1.5) mg/dL Glucose 100 (75-100) mg/dL Calcium 9.1 (8.4-10.2) mg/dL
[2019-05-02] MEDS: levETIRAcetam 1,000 MG in DEXTROSE 5% IN WATER 100 ML IV SCH ×2 (10:23→22:36)
[2019-05-02] MEDS: guaiFENesin ER 600 MG TAB PO SCH ×2 (10:29→22:19)
[2019-05-02] MEDS: FOLIC ACID 1 MG TAB PO SCH (10:30)
[2019-05-02] MEDS: THIAMINE 100 MG TAB PO SCH (10:31)
[2019-05-02] MEDS: AMIODARONE 200 MG TAB PO SCH (10:35)
[2019-05-02] MEDS: amLODIPine 10 MG TAB PO SCH (10:35)
[2019-05-02] MEDS: LISINOPRIL 5 MG TAB PO SCH (10:36)
--- NOTE | 2019-05-02 17:14 | Progress Note ---
Assessment and Plan - Patient Problems (1) Altered mental status Current Visit: Yes Status: Acute Qualifiers: Altered mental status type: unspecified Qualified Code(s): R41.82 - Altered mental status, unspecified Plan to address problem: Altered mental status with lethargy and confusion secondary to EtOH alcohol withdrawal. Seems to resolved after 48 hours on CIWA protocol. Still have some electrolyte abnormalities will correct. We'll obtain consult from physical therapy and see how patient does with ambulating because he has had debility after his stay. (2) Seizure Current Visit: Yes Status: Acute Plan to address problem: Patient with alcohol withdrawal seizure has placed patient on Keppra doing well no further seizures. (3) Acute on chronic renal failure Current Visit: No Status: Resolved (4) Alcohol withdrawal Current Visit: No Status: Acute Plan to address problem: Shunt with alcohol withdrawal now. We'll place patient on CIWA protocol and treat accordingly. (5) Delirium tremens Current Visit: No Status: Acute (6) Cellulitis Current Visit: Yes Status: Acute Plan to address problem: Patient has cellulitis and hand that seem to be responding to IV antibiotics clindamycin. Patient hand is much less warm still somewhat edematous but better than yesterday. Should elevate arm continue IV antibiotics. Can change to by mouth patient is ready for discharge. (7) Paroxysmal atrial fibrillation Current Visit: No Status: Chronic Plan to address problem: Patient regular in normal sinus today. No anticoagulation secondary to recent history of subarachnoid hemorrhage and increased risk for falling. Risk outweigh benefits. Patient is on amiodarone for rhythm control and has done well. No anticoagulation because recent subarachnoid hemorrhage and increased risk of fall. History Interval history: Patient is much more alert today and cooperative. No longer acting out. Withdrawal symptoms seem to have resolved. Answers questions appropriately Hospitalist Physical - Constitutional Vitals: Temp Pulse Resp BP Pulse Ox 99.6 F 87 18 117/67 95 05/02/19 13:03 05/02/19 13:03 05/02/19 13:03 05/02/19 13:03 05/02/19 13:03 General appearance: Present: no acute distress - EENT Eyes: Present: PERRL, EOM intact ENT: hearing intact, clear oral mucosa - Neck Neck: Present: supple, normal ROM, rigidity - Respiratory Respiratory: bilateral: CTA - Cardiovascular Rhythm: regular - Extremities Extremities: no ischemia, pulses intact, pulses symmetrical Extremity abnormal: edema, other (right hand) Peripheral Pulses: within normal limits - Abdominal General gastrointestinal: soft, non-tender, normal bowel sounds - Psychiatric Psychiatric: appropriate mood/affect, intact judgment & insight, cooperative - Neurologic Neurologic: CNII-XII intact Results - Labs CBC & Chem 7: 05/02/19 06:31 11 06:31 Labs: Laboratory Last Values WBC 13.2 K/mm3 (4.5-11.0) H 05/02/19 06:31 RBC 4.60 M/mm3 (3.65-5.03) 05/02/19 06:31 Hgb 12.2 gm/dl (11.8-15.2) 05/02/19 06:31 Hct 38.3 % (35.5-45.6) 05/02/19 06:31 MCV 83 fl (84-94) L 05/02/19 06:31 MCH 27 pg (28-32) L 05/02/19 06:31 MCHC 32 % (32-34) 05/02/19 06:31 RDW 18.0 % (13.2-15.2) H 05/02/19 06:31 Plt Count 299 K/mm3 (140-440) 05/02/19 06:31 Lymph % (Auto) 12.2 % (13.4-35.0) L 05/02/19 06:31 [place] % (Auto) 11.7 % (0.0-7.3) H 05/02/19 06:31 Eos % (Auto) 0.4 % (0.0-4.3) 05/02/19 06:31 Baso % (Auto) 0.5 % (0.0-1.8) 05/02/19 06:31 Lymph # 1.6 K/mm3 (1.2-5.4) 05/02/19 06:31 [place] # 1.5 K/mm3 (0.0-0.8) H 05/02/19 06:31 Eos # 0.1 K/mm3 (0.0-0.4) 05/02/19 06:31 Baso # 0.1 K/mm3 (0.0-0.1) 05/02/19 06:31 Seg Neutrophils % 75.2 % (40.0-70.0) H 05/02/19 06:31 Seg Neutrophils # 9.9 K/mm3 (1.8-7.7) H 05/02/19 06:31 Sodium 139 mmol/L (137-145) 05/02/19 06:31 Potassium 3.3 mmol/L (3.6-5.0) L D 05/02/19 06:31 Chloride 101.2 mmol/L (98-107) 05/02/19 06:31 Carbon Dioxide 19 mmol/L (22-30) L 05/02/19 06:31 Anion Gap 22 mmol/L 05/02/19 06:31 BUN 15 mg/dL (9-20) 05/02/19 06:31 Creatinine 1.1 mg/dL (0.8-1.5) 05/02/19 06:31 Estimated GFR > 60 ml/min 05/02/19 06:31 BUN/Creatinine Ratio 14 % 05/02/19 06:31 Glucose 100 mg/dL (75-100) 05/02/19 06:31 POC Glucose 65 (70-105) L 05/01/19 16:26 Calcium 9.1 mg/dL (8.4-10.2) 05/02/19 06:31 Magnesium 2.10 mg/dL (1.7-2.3) 04/29/19 10:48 Total Bilirubin 0.90 mg/dL (0.1-1.2) 04/28/19 07:56 AST 18 units/L (5-40) 04/28/19 07:56 ALT < 5 units/L (7-56) L 04/28/19 07:56 Alkaline Phosphatase 77 units/L (35-129) 04/28/19 07:56 Total Creatine Kinase 77 units/L (55-170) 04/28/19 10:11 CK-MB (CK-2) 1.1 ng/mL (0.0-4.0) 04/28/19 10:11 CK-MB (CK-2) Rel Index 1.4 (0-4) 04/28/19 10:11 Troponin T < 0.010 ng/mL (0.00-0.029) 04/28/19 10:11 Total Protein 7.9 g/dL (6.3-8.2) 04/28/19 07:56 Albumin 3.8 g/dL (3.9-5) L 04/28/19 07:56 Albumin/Globulin Ratio 0.9 % 04/28/19 07:56 TSH 0.196 mlU/mL (0.270-4.200) L 04/29/19 10:48 Thyroxine (T4) 6.5 ug/dL (4.0-12.0) 04/28/19 10:11 Urine Color Yellow (Yellow) 04/28/19 10:11 Urine Turbidity Clear (Clear) 04/28/19 10:11 Urine pH 5.0 (5.0-7.0) 04/28/19 10:11 Ur Specific [place] 1.019 (1.003-1.030) 04/28/19 10:11 Urine Protein 100 mg/dl mg/dL (Negative) 04/28/19 10:11 Urine Glucose (UA) Neg mg/dL (Negative) 04/28/19 10:11 Urine Ketones Neg mg/dL (Negative) 04/28/19 10:11 Urine Blood Neg (Negative) 04/28/19 10:11 Urine Nitrite Neg (Negative) 04/28/19 10:11 Urine Bilirubin Neg (Negative) 04/28/19 10:11 Urine Urobilinogen 4.0 mg/dL (<2.0) 04/28/19 10:11 Ur Leukocyte Esterase Neg (Negative) 04/28/19 10:11 Urine WBC (Auto) 1.0 /HPF (0.0-6.0) 04/28/19 10:11 Urine RBC (Auto) 3.0 /HPF (0.0-6.0) 04/28/19 10:11 Urine Bacteria (Auto) 1+ /HPF (Negative) 04/28/19 10:11 Hyaline Casts 8 /LPF 04/28/19 10:11 Urine Opiates Screen Presumptive negative 04/28/19 10:11 Urine Methadone Screen Presumptive negative 04/28/19 10:11 Ur Barbiturates Screen Presumptive negative 04/28/19 10:11 Ur Phencyclidine Scrn Presumptive negative 04/28/19 10:11 Ur Amphetamines Screen Presumptive negative 04/28/19 10:11 U Benzodiazepines Scrn Presumptive negative 04/28/19 10:11 Urine Cocaine Screen Presumptive negative 04/28/19 10:11 U Marijuana (THC) Screen Presumptive positive 04/28/19 10:11 Drugs of Abuse Note Disclamer 04/28/19 10:11 Active Medications - Current Medications Current Medications: Generic Name Dose Route Start Last Admin Trade Name Freq PRN Reason Stop Dose Admin Acetaminophen 650 mg 04/29/19 22:07 04/30/19 06:45 Tylenol PO 650 mg Q4H PRN Administration Pain, Mild (1-3) Amiodarone HCl 200 mg 04/29/19 10:00 05/02/19 10:35 Cordarone PO 200 mg DAILY CHAPIS Administration Amlodipine Besylate 10 mg 04/30/19 20:14 05/01/19 11:03 Amlodipine PO 10 mg QDAY CHAPIS Administration Folic Acid 1 mg 04/28/19 14:00 05/02/19 10:30 Folvite PO 1 mg QDAY CHAPIS Administration Guaifenesin 600 mg 04/29/19 23:00 05/02/19 10:29 Mucinex Er PO 600 mg BID CHAPIS Administration Hydralazine HCl 10 mg 04/30/19 19:16 05/01/19 00:27 Apresoline IV 10 mg Q3H PRN Administration Blood Pressure Levetiracetam 1,000 mg/ 110 mls @ 400 mls/hr 04/28/19 22:00 05/02/19 10:23 Dextrose IV 400 mls/hr Q12HR CHAPIS Administration Clindamycin HCl 600 mg in 50 mls @ 100 mls/hr 05/01/19 16:00 05/02/19 08:31 Cleocin 600 Mg/50 Ml IV 100 mls/hr Q8H CHAPIS Administration Protocol Lisinopril 5 mg 04/30/19 21:00 05/02/19 10:36 Zestril PO 5 mg QDAY CHAPIS Administration Lorazepam 2 mg 04/30/19 22:46 05/01/19 00:27 Ativan IV 2 mg Q1H PRN Administration CIWA-Ar 8-15 Lorazepam 4 mg 04/30/19 22:46 Ativan IV Q1H PRN CIWA-Ar 16-25 Thiamine HCl 100 mg 04/28/19 14:00 05/02/19 10:31 Vitamin B-1 PO 100 mg QDAY CHAPIS Administration
[2019-05-02] MEDS: ACETAMINOPHEN 325 MG TAB PO PRN (18:54)
[2019-05-03] MEDS: CLINDAMYCIN 600 MG/50 mL 600 MG/50 ML BAG IV SCH ×2 (00:12→08:37)
[2019-05-03] MEDS: ACETAMINOPHEN 325 MG TAB PO PRN (00:33)
[2019-05-03 08:02] LABS: BUN/Creatinine Ratio 21; Blood Urea Nitrogen 21 mg/dL (9-20); Hemolysis Index 47
--- NOTE | 2019-05-03 09:19 | Progress Note ---
Assessment and Plan Assessment and plan: Patient is a 73-year-old male w/ history of seizure , alcohol abuse, hypertension, heart failure, hemorrhagic CVA, A. fib and COPD who presented to the ED with complaints of episodes of witnessed sz. He has a history of alcoholic liver disease, and some level of alcohol addiction with withdrawal sei zures. Patient is an extremely poor historian. He denies any chest pain, nausea, vomiting or diarrhea at this time. pCXR IMPRESSION: 1. No acute findings. R Hand Xray- IMPRESSION: Moderate right hand and wrist edema without an acute osseous abnormality. CT head IMPRESSION: No acute abnormality. Diffuse cerebral atrophy. No change when compared to 03/15/2019. Plan --Hypokalemia; replace per protocol and monitor levels --Alcohol withdrawal seizures; seizure precautions CIWA protocol, patient is already on antiepileptic medications --History of COPD oxygen titrate O2 sats to more than 90%, nebulizers Steroids if needed and supportive care --Leukocytosis Repeat CBC ordered today pt already on abx for R hand cellultits Atrial fibrillation with RVR, paroxysmal - Normal sinus rhythm today - Cardizem for rate was controlled - Continue home metoprolol - No on anticoagulation because of history of hemorrhagic stroke - Cardiology consulted --Smoking Cessation patient advised to quit recreational drugs - Cellulitis IV abx --DVT prophylaxis; SCD because of history of hemorrhagic stroke Hospitalist Physical - Physical exam Narrative exam: Patient seen and examined, medical records reviewed. Admitted with seizures epis odes and possible alcohol withdrawal symptoms. Patient is restless and expresses wishes to go home. No new episodes of seizure, new white count. - Constitutional Vitals: Temp Pulse Resp BP Pulse Ox 98.6 F 73 18 100/53 96 05/03/19 07:21 05/03/19 07:21 05/03/19 07:21 05/03/19 07:21 05/03/19 07:36 General appearance: Present: no acute distress - EENT Eyes: Present: PERRL, EOM intact ENT: hearing intact - Neck Neck: Present: supple, normal ROM - Respiratory Respiratory effort: normal Respiratory: bilateral: diminished - Cardiovascular Rhythm: regular - Extremities Extremities: pulses intact Extremity abnormal: edema (r hand) Peripheral Pulses: within normal limits - Abdominal General gastrointestinal: non-tender - Integumentary Integumentary: Present: warm, dry - Psychiatric Psychiatric: appropriate mood/affect Results - Labs CBC & Chem 7: 05/02/19 06:31 05/03/19 07:09 Labs: Laboratory Last Values WBC 13.2 K/mm3 (4.5-11.0) H 05/02/19 06:31 RBC 4.60 M/mm3 (3.65-5.03) 05/02/19 06:31 Hgb 12.2 gm/dl (11.8-15.2) 05/02/19 06:31 Hct 38.3 % (35.5-45.6) 05/02/19 06:31 MCV 83 fl (84-94) L 05/02/19 06:31 MCH 27 pg (28-32) L 05/02/19 06:31 MCHC 32 % (32-34) 05/02/19 06:31 RDW 18.0 % (13.2-15.2) H 05/02/19 06:31 Plt Count 299 K/mm3 (140-440) 05/02/19 06:31 Lymph % (Auto) 12.2 % (13.4-35.0) L 05/02/19 06:31 [place] % (Auto) 11.7 % (0.0-7.3) H 05/02/19 06:31 Eos % (Auto) 0.4 % (0.0-4.3) 05/02/19 06:31 Baso % (Auto) 0.5 % (0.0-1.8) 05/02/19 06:31 Lymph # 1.6 K/mm3 (1.2-5.4) 05/02/19 06:31 [place] # 1.5 K/mm3 (0.0-0.8) H 05/02/19 06:31 Eos # 0.1 K/mm3 (0.0-0.4) 05/02/19 06:31 Baso # 0.1 K/mm3 (0.0-0.1) 05/02/19 06:31 Seg Neutrophils % 75.2 % (40.0-70.0) H 05/02/19 06:31 Seg Neutrophils # 9.9 K/mm3 (1.8-7.7) H 05/02/19 06:31 Sodium 137 mmol/L (137-145) 05/03/19 07:09 Potassium 3.4 mmol/L (3.6-5.0) L 05/03/19 07:09 Chloride 99.9 mmol/L (98-107) 05/03/19 07:09 Carbon Dioxide 21 mmol/L (22-30) L 05/03/19 07:09 Anion Gap 20 mmol/L 05/03/19 07:09 BUN 21 mg/dL (9-20) H 05/03/19 07:09 Creatinine 1.0 mg/dL (0.8-1.5) 05/03/19 07:09 Estimated GFR > 60 ml/min 05/03/19 07:09 BUN/Creatinine Ratio 21 % 05/03/19 07:09 Glucose 92 mg/dL (75-100) 05/03/19 07:09 POC Glucose 65 (70-105) L 05/01/19 16:26 Calcium 9.0 mg/dL (8.4-10.2) 05/03/19 07:09 Magnesium 2.10 mg/dL (1.7-2.3) 04/29/19 10:48 Total Bilirubin 0.90 mg/dL (0.1-1.2) 04/28/19 07:56 AST 18 units/L (5-40) 04/28/19 07:56 ALT < 5 units/L (7-56) L 04/28/19 07:56 Alkaline Phosphatase 77 units/L (35-129) 04/28/19 07:56 Total Creatine Kinase 77 units/L (55-170) 04/28/19 10:11 CK-MB (CK-2) 1.1 ng/mL (0.0-4.0) 04/28/19 10:11 CK-MB (CK-2) Rel Index 1.4 (0-4) 04/28/19 10:11 Troponin T < 0.010 ng/mL (0.00-0.029) 04/28/19 10:11 Total Protein 7.9 g/dL (6.3-8.2) 04/28/19 07:56 Albumin 3.8 g/dL (3.9-5) L 04/28/19 07:56 Albumin/Globulin Ratio 0.9 % 04/28/19 07:56 TSH 0.196 mlU/mL (0.270-4.200) L 04/29/19 10:48 Thyroxine (T4) 6.5 ug/dL (4.0-12.0) 04/28/19 10:11 Urine Color Yellow (Yellow) 04/28/19 10:11 Urine Turbidity Clear (Clear) 04/28/19 10:11 Urine pH 5.0 (5.0-7.0) 04/28/19 10:11 Ur Specific [place] 1.019 (1.003-1.030) 04/28/19 10:11 Urine Protein 100 mg/dl mg/dL (Negative) 04/28/19 10:11 Urine Glucose (UA) Neg mg/dL (Negative) 04/28/19 10:11 Urine Ketones Neg mg/dL (Negative) 04/28/19 10:11 Urine Blood Neg (Negative) 04/28/19 10:11 Urine Nitrite Neg (Negative) 04/28/19 10:11 Urine Bilirubin Neg (Negative) 04/28/19 10:11 Urine Urobilinogen 4.0 mg/dL (<2.0) 04/28/19 10:11 Ur Leukocyte Esterase Neg (Negative) 04/28/19 10:11 Urine WBC (Auto) 1.0 /HPF (0.0-6.0) 04/28/19 10:11 Urine RBC (Auto) 3.0 /HPF (0.0-6.0) 04/28/19 10:11 Urine Bacteria (Auto) 1+ /HPF (Negative) 04/28/19 10:11 Hyaline Casts 8 /LPF 04/28/19 10:11 Urine Opiates Screen Presumptive negative 04/28/19 10:11 Urine Methadone Screen Presumptive negative 04/28/19 10:11 Ur Barbiturates Screen Presumptive negative 04/28/19 10:11 Ur Phencyclidine Scrn Presumptive negative 04/28/19 10:11 Ur Amphetamines Screen Presumptive negative 04/28/19 10:11 U Benzodiazepines Scrn Presumptive negative 04/28/19 10:11 Urine Cocaine Screen Presumptive negative 04/28/19 10:11 U Marijuana (THC) Screen Presumptive positive 04/28/19 10:11 Drugs of Abuse Note Disclamer 04/28/19 10:11 Active Medications - Current Medications Current Medications: Generic Name Dose Route Start Last Admin Trade Name Freq PRN Reason Stop Dose Admin Acetaminophen 650 mg 04/29/19 22:07 05/03/19 00:33 Tylenol PO 650 mg Q4H PRN Administration Pain, Mild (1-3) Amiodarone HCl 200 mg 04/29/19 10:00 05/02/19 10:35 Cordarone PO 200 mg DAILY CHAPIS Administration Amlodipine Besylate 10 mg 04/30/19 20:14 05/02/19 10:35 Amlodipine PO Not Given QDAY CHAPIS Folic Acid 1 mg 04/28/19 14:00 05/02/19 10:30 Folvite PO 1 mg QDAY CHAPIS Administration Guaifenesin 600 mg 04/29/19 23:00 05/02/19 22:19 Mucinex Er PO 600 mg BID CHAPIS Administration Hydralazine HCl 10 mg 04/30/19 19:16 05/01/19 00:27 Apresoline IV 10 mg Q3H PRN Administration Blood Pressure Levetiracetam 1,000 mg/ 110 mls @ 400 mls/hr 04/28/19 22:00 05/02/19 22:36 Dextrose IV 05/03/19 14:00 400 mls/hr Q12HR CHAPIS Administration Clindamycin HCl 600 mg in 50 mls @ 100 mls/hr 05/01/19 16:00 05/03/19 08:37 Cleocin 600 Mg/50 Ml IV 100 mls/hr Q8H CHAPIS Administration Protocol Levetiracetam 1,000 mg 05/03/19 22:00 Keppra PO BID CHAPIS Lisinopril 5 mg 04/30/19 21:00 05/02/19 10:36 Zestril PO 5 mg QDAY CHAPIS Administration Lorazepam 2 mg 04/30/19 22:46 05/01/19 00:27 Ativan IV 2 mg Q1H PRN Administration CIWA-Ar 8-15 Lorazepam 4 mg 04/30/19 22:46 Ativan IV Q1H PRN CIWA-Ar 16-25 Potassium Chloride 40 meq 05/03/19 10:00 K-Dur PO 05/03/19 10:01 ONCE ONE Thiamine HCl 100 mg 04/28/19 14:00 05/02/19 10:31 Vitamin B-1 PO 100 mg QDAY CHAPIS Administration
--- NOTE | 2019-05-03 09:41 | Progress Note ---
Assessment and Plan Seizure Paroxysmal Afib currently in sinus rhythm. On amiodarone for suppression. not on anticoagulation due to previous subarachnoid hemorrhage. Hypertension Hx of alcohol addition Normal myocardial perfusion stress test done 12/2015. Normal left ventricular systolic function, ejection fraction 55% by echocardiogram 09/2017. Continue amiodarone for suppression of paroxysmal atrial fibrillation. Stable cardiac triana. Subjective Date of service: 05/03/19 Interval history: Patient has no cardiac complaints. Objective Vital Signs Temp Pulse Resp BP Pulse Ox 05/03/19 07:36 96 05/03/19 07:21 98.6 F 73 18 100/53 98 05/03/19 02:53 99.4 F 63 18 101/50 100 05/02/19 20:51 18 05/02/19 19:40 99.9 F H 75 18 101/45 99 05/02/19 13:03 99.6 F 87 18 117/67 95 05/02/19 11:00 100.0 F H 82 18 120/65 97 05/02/19 10:36 67 111/66 05/02/19 10:35 67 111/66 05/02/19 10:34 100.0 F H 18 111/66 - Physical Examination General: No Apparent Distress HEENT: Positive: PERRL Neck: Positive: trachea midline Cardiac: Positive: Reg Rate and Rhythm Lungs: Positive: Decreased Breath Sounds Neuro: Positive: Grossly Intact Extremities: Absent: edema - Labs and Meds Comprehensive Metabolic Panel 05/03/19 Range/Units 07:09 Sodium 137 (137-145) mmol/L Potassium 3.4 L (3.6-5.0) mmol/L Chloride 99.9 (98-107) mmol/L Carbon Dioxide 21 L (22-30) mmol/L BUN 21 H (9-20) mg/dL Creatinine 1.0 (0.8-1.5) mg/dL Glucose 92 (75-100) mg/dL Calcium 9.0 (8.4-10.2) mg/dL
[2019-05-03] MEDS: THIAMINE 100 MG TAB PO SCH (09:43)
[2019-05-03] MEDS: FOLIC ACID 1 MG TAB PO SCH (09:43)
[2019-05-03] MEDS: guaiFENesin ER 600 MG TAB PO SCH (09:43)
[2019-05-03] MEDS: AMIODARONE 200 MG TAB PO SCH (09:44)
[2019-05-03] MEDS: LISINOPRIL 5 MG TAB PO SCH (09:49)
[2019-05-03] MEDS: amLODIPine 10 MG TAB PO SCH (09:49)
[2019-05-03 09:50] VITALS: BP 104/59
[2019-05-03] MEDS ORDERED: POTASSIUM CHLORIDE ER 20 MEQ TAB PO ONE (10:00)
[2019-05-03 11:06] LABS: Hematocrit 37.5 % (35.5-45.6); Hemoglobin 12.2 gm/dl (11.8-15.2); Mean Corpuscular HGB Conc 33 % (32-34); Mean Corpuscular Volume 82 fl (84-94); Platelet Count 319 K/mm3 (140-440); Red Blood Count 4.59 M/mm3 (3.65-5.03)
--- NOTE | 2019-05-03 11:56 | Discharge Summary ---
Providers - Providers Date of Admission: 04/28/19 10:37 Attending physician: FRANKLIN CAR MD 04/28/19 13:46 Consult to Physician [CONS] Routine Comment: Consulting Provider: JOSE RIOS Physician Instructions: Reason For Exam: afib rvr 04/28/19 13:49 Consult to Physician [CONS] Routine Comment: Consulting Provider: ALANA HUERTAS Physician Instructions: Reason For Exam: intractable sz 05/02/19 17:14 Physical Therapy Evaluation and Treat [CONS] Routine Comment: Reason For Exam: debility does he need snf Primary care physician: [employer] Hospitalization Reason for admission: seizure Condition: Stable Hospital course: Patient is a 73-year-old male w/ history of seizure , alcohol abuse, hypertension, heart failure, hemorrhagic CVA, A. fib and COPD who presented to the ED with complaints of episodes of witnessed sz. He has a history of alcoholic liver disease, and some level of alcohol addiction with withdrawal seizures. Patient is an extremely poor historian. He denies any chest pain, nausea, vomiting or diarrhea at this time. pCXR IMPRESSION: 1. No acute findings. R Hand Xray- IMPRESSION: Moderate right hand and wrist edema without an acute osseous abnormality. CT head IMPRESSION: No acute abnormality. Diffuse cerebral atrophy. No change when compared to 03/15/2019. Plan --Hypokalemia; replace per protocol and monitor levels --Alcohol withdrawal seizures; seizure precautions CIWA protocol, patient is already on antiepileptic medications Patient was seen by Neurology and recommended Keppra. I discussed etoh cessation with the patient and the benefits Gout No clear evidence of acute flare. Continue home medications --History of COPD oxygen titrate O2 sats to more than 90%, nebulizers Steroids if needed and supportive care --Cellulites Right hand treated with abx pt already on abx for R hand cellultits Atrial fibrillation with RVR, paroxysmal - Normal sinus rhythm today - Cardizem for rate was controlled - Continue home metoprolol - No on anticoagulation because of history of hemorrhagic stroke - Cardiology consulted --Smoking Cessation patient advised to quit recreational drugs Disposition: - TO HOME OR SELFCARE Time spent for discharge: 35 mins Core Measure Documentation - Palliative Care Palliative Care/ Comfort Measures: Not Applicable - Core Measures Any of the following diagnoses?: none Exam - Physical Exam Narrative exam: General appearance: Present: no acute distress - EENT Eyes: Present: PERRL, EOM intact ENT: hearing intact - Neck Neck: Present: supple, normal ROM - Respiratory Respiratory effort: normal Respiratory: bilateral: diminished - Cardiovascular Rhythm: regular - Extremities Extremities: pulses intact Extremity abnormal: edema (r hand), mild erythema Peripheral Pulses: within normal limits - Abdominal General gastrointestinal: non-tender - Integumentary Integumentary: Present: warm, dry - Psychiatric Psychiatric: appropriate mood/affect - Constitutional Vitals: Temp Pulse Resp BP Pulse Ox 98.6 F 76 18 104/59 96 05/03/19 07:21 05/03/19 09:49 05/03/19 07:21 05/03/19 09:49 05/03/19 07:36 Plan Activity: advance as tolerated, fall precautions Diet: regular Special Instructions: record daily weights, record daily BP diary, other (advised to enrol in rehab) Follow up with: PRIMARY MD LESLYE [Primary Care Provider] - 7 Days ALANA HUERTAS MD [Staff Physician] - 7 Days Prescriptions: Folic Acid [Folvite] 1 mg PO QDAY #30 tablet cephALEXin [Keflex] 250 mg PO Q6HR #14 capsule levETIRAcetam [Keppra TAB] 1,000 mg PO BID #120 tablet Thiamine [Vitamin B-1] 100 mg PO QDAY #30 tab
[2019-05-03] MEDS: levETIRAcetam 1,000 MG in DEXTROSE 5% IN WATER 100 ML IV SCH (12:12)
[2019-05-03] MEDS ORDERED: COLCHICINE 0.6 MG CAP PO SCH (13:21)
[2019-05-03] MEDS ORDERED: levETIRAcetam 500 MG TAB PO SCH (22:00)
== END 2019-05-03 13:50 | disposition home or self-care (01) | DRG 308 ==
LOC: ED 07:31 → CC1 10:37 → 4A 14:03 → 2B-ACE 05-01 18:18
PROVIDERS: ADMIT Internal Medicine; ATTEND Internal Medicine
DX: I48.0 Paroxysmal atrial fibrillation (principal); G93.41 Metabolic encephalopathy; I50.32 Chronic diastolic (congestive) heart failure; I13.0 Hypertensive heart and chronic kidney disease with heart failure and stage 1 through stage 4 chronic kidney disease, or unspecified chronic kidney disease; N17.9 Acute kidney failure, unspecified; L03.113 Cellulitis of right upper limb; G40.909 Epilepsy, unspecified, not intractable, without status epilepticus; M10.9 Gout, unspecified; N18.9 Chronic kidney disease, unspecified; F10.10 Alcohol abuse, uncomplicated; J44.9 Chronic obstructive pulmonary disease, unspecified; F17.210 Nicotine dependence, cigarettes, uncomplicated; Y90.9 Presence of alcohol in blood, level not specified; Z90.49 Acquired absence of other specified parts of digestive tract; Z79.899 Other long term (current) drug therapy; Z71.6 Tobacco abuse counseling
CPT/HCPCS: 36415; 70450; 71045; 80048; 80053; 80307; 81001; 82550; 82553; 82962; 83735; 84436; 84443; 84484; 85025; 85027; 90686; 93005; 93010; 94760; 96374; 99406; G0378; J0282; J0360; J1953; J2060; J7030; J7060

== ENCOUNTER 2020-09-04 01:19 | Emergency (ER) | payer MEDICARE ==
[2020-09-04] MEDS ORDERED: levETIRAcetam 1000 MG/NS 0.75% 1,000 MG/100 ML BAG IV ONE (02:18)
[2020-09-04] MEDS ORDERED: chlordiazePOXIDE 25 MG CAP PO ONE (03:14)
[2020-09-04] MEDS ORDERED: LORazepam 2 MG TAB PO PRN (03:20)
[2020-09-04] MEDS ORDERED: chlordiazePOXIDE 25 MG CAP PO PRN (03:20)
[2020-09-04] MEDS ORDERED: LORazepam 2 MG/ML VIAL IV PRN (03:20)
--- NOTE | 2020-09-04 03:20 | Emergency Department Report ---
ED Seizure HPI - General Chief Complaint: Seizure Stated Complaint: SEIZURE Time Seen by Provider: 09/04/20 03:08 Source: patient, EMS Mode of arrival: Stretcher Limitations: No Limitations - History of Present Illness Initial Comments: CC: seizure HPI: This is a 75-year-old male with history of seizure disorder, atrial fibrillation, chronic kidney disease, hypothyroidism, alcohol withdrawal, chronic alcoholic liver disease, delirium tremens, subarachnoid hemorrhage, CVA, alcohol dependence who presents via EMS from home. According to EMS report tip cortes had 2 seizures that both lasted a few minutes each. Patient recently decreased amount of alcohol intake. EMS was able to observe several beer cans. Patient denies any discomfort. According electronic medical record, patient has been treated with antiepileptic medication. Previous neurology consult recommended Keppra. Previous neurology consult reported EEG in 2016 showing slowing, brain MRI 2016 showing atrophy. Diagnosis at that time complex partial seizures with secondary generalization. MD Complaint: seizure -: Sudden, This evening Description of Episode: loss of consciousness, tonic-clonic movement Witnessed:: Yes Trauma: No Seizure History: known seizure disorder, history of withdrawal se Place: home Treatments Prior to Arrival: other (EMS transportation) - Related Data Home Medications Medication Instructions Recorded Confirmed Last Taken guaiFENesin [Guaifenesin] 400 mg PO TID 06/22/18 02/15/19 02/14/19 Previous Rx's Medication Instructions Recorded Last Taken Type cephALEXin [Keflex] 250 mg PO Q6HR #14 capsule 05/03/19 Unknown Rx Amiodarone [Cordarone 200 MG TAB] 200 mg PO DAILY #30 tab 08/13/19 Unknown Rx Folic Acid [Folvite] 1 mg PO QDAY #30 tablet 08/13/19 Unknown Rx Lisinopril 5 mg PO QDAY #30 08/13/19 Unknown Rx Metoprolol [Lopressor TAB] 25 mg PO TID #90 tablet 08/13/19 Unknown Rx Spiriva 7.5 mcg IH BID 30 Days 08/13/19 Unknown Rx Thiamine [Vitamin B-1] 100 mg PO QDAY #30 tab 08/13/19 Unknown Rx amLODIPine 10 mg PO QDAY #30 08/13/19 Unknown Rx levETIRAcetam [Keppra TAB] 1,000 mg PO BID #120 tablet 08/13/19 Unknown Rx lisinopriL [Zestril TAB] 5 mg PO QDAY tablet 08/13/19 Unknown Rx Acetaminophen [Acetaminophen TAB] 650 mg PO Q4H PRN tablet 01/20/20 Unknown Rx Aspirin 325 mg PO QDAY tablet 01/20/20 Unknown Rx AtorvaSTATin [Lipitor] 40 mg PO QHS tablet 01/20/20 Unknown Rx Magnesium Hydroxide [Milk of 30 ml PO Q4H PRN oral.liqd 01/20/20 Unknown Rx Magnesia] Metoclopramide [Reglan TAB] 10 mg PO Q6H PRN tablet 01/20/20 Unknown Rx Metoprolol [Lopressor TAB] 25 mg PO TID tablet 01/20/20 Unknown Rx levETIRAcetam [Keppra] 1,000 mg PO BID oral.liqd 01/20/20 Unknown Rx lisinopriL [Zestril TAB] 5 mg PO QDAY tablet 01/20/20 Unknown Rx chlordiazePOXIDE [Librium] 502 tab PO Q8H PRN #10 capsule 09/04/20 Unknown Rx levETIRAcetam [Keppra TAB] 1,000 mg PO BID 30 Days #60 tab 09/04/20 Unknown Rx Allergies Allergy/AdvReac Type Severity Reaction Status Date / Time No Known Allergies Allergy Verified 04/28/19 07:49 ED Review of Systems ROS: Stated complaint: SEIZURE Other details as noted in HPI Comment: All other systems reviewed and negative Constitutional: denies: fever, malaise Respiratory: denies: cough Cardiovascular: denies: chest pain Gastrointestinal: denies: abdominal pain ED Past Medical Hx - Past Medical History Previous Medical History?: Yes Hx Hypertension: Yes Hx Heart Attack/AMI: No Hx Diabetes: No Hx Deep Vein Thrombosis: No Hx Pulmonary Embolism: No Hx Liver Disease: Yes Hx Renal Disease: No Hx Sickle Cell Disease: No Hx Arthritis: Yes 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 TBI - Surgical History Past Surgical History?: Yes Hx Coronary Stent: No Hx Pacemaker: No Hx Internal Defibrillator: No Hx Appendectomy: Yes Additional Surgical History: Left upper extremity surgery related to trauma - Social History Smoking Status: Never Smoker Substance Use Type: Alcohol - Medications Home Medications: Home Medications Medication Instructions Recorded Confirmed Last Taken Type guaiFENesin [Guaifenesin] 400 mg PO TID 06/22/18 02/15/19 02/14/19 History cephALEXin [Keflex] 250 mg PO Q6HR #14 capsule 05/03/19 Unknown Rx Amiodarone [Cordarone 200 MG TAB] 200 mg PO DAILY #30 tab 08/13/19 Unknown Rx Folic Acid [Folvite] 1 mg PO QDAY #30 tablet 08/13/19 Unknown Rx Lisinopril 5 mg PO QDAY #30 08/13/19 Unknown Rx Metoprolol [Lopressor TAB] 25 mg PO TID #90 tablet 08/13/19 Unknown Rx Spiriva 7.5 mcg IH BID 30 Days 08/13/19 Unknown Rx Thiamine [Vitamin B-1] 100 mg PO QDAY #30 tab 08/13/19 Unknown Rx amLODIPine 10 mg PO QDAY #30 08/13/19 Unknown Rx levETIRAcetam [Keppra TAB] 1,000 mg PO BID #120 tablet 08/13/19 Unknown Rx lisinopriL [Zestril TAB] 5 mg PO QDAY tablet 08/13/19 Unknown Rx Acetaminophen [Acetaminophen TAB] 650 mg PO Q4H PRN tablet 01/20/20 Unknown Rx Aspirin 325 mg PO QDAY tablet 01/20/20 Unknown Rx AtorvaSTATin [Lipitor] 40 mg PO QHS tablet 01/20/20 Unknown Rx Magnesium Hydroxide [Milk of 30 ml PO Q4H PRN oral.liqd 01/20/20 Unknown Rx Magnesia] Metoclopramide [Reglan TAB] 10 mg PO Q6H PRN tablet 01/20/20 Unknown Rx Metoprolol [Lopressor TAB] 25 mg PO TID tablet 01/20/20 Unknown Rx levETIRAcetam [Keppra] 1,000 mg PO BID oral.liqd 01/20/20 Unknown Rx lisinopriL [Zestril TAB] 5 mg PO QDAY tablet 01/20/20 Unknown Rx chlordiazePOXIDE [Librium] 502 tab PO Q8H PRN #10 capsule 09/04/20 Unknown Rx levETIRAcetam [Keppra TAB] 1,000 mg PO BID 30 Days #60 tab 09/04/20 Unknown Rx ED Physical Exam - General Limitations: No Limitations General appearance: alert, in no apparent distress - Head Head exam: Present: atraumatic, normocephalic - Eye Eye exam: Present: normal appearance - ENT ENT exam: Present: mucous membranes moist - Neck Neck exam: Present: normal inspection, full ROM - Respiratory Respiratory exam: Present: normal lung sounds bilaterally. Absent: respiratory distress, wheezes, rales, rhonchi - Cardiovascular Cardiovascular Exam: Present: regular rate, normal rhythm, normal heart sounds. Absent: systolic murmur, diastolic murmur, rubs, gallop - GI/Abdominal GI/Abdominal exam: Present: soft, normal bowel sounds. Absent: distended, tenderness, guarding, rebound - Rectal Rectal exam: Present: deferred - Extremities Exam Extremities exam: Present: normal inspection - Neurological Exam Neurological exam: Present: alert, oriented X3 - Psychiatric Psychiatric exam: Present: normal affect, normal mood - Skin Skin exam: Present: warm, dry, intact, normal color. Absent: rash ED Course Vital Signs 09/04/20 09/04/20 09/04/20 01:30 02:16 02:30 Temperature 99.1 F Pulse Rate 89 83 85 Respiratory 15 18 19 Rate Blood Pressure 137/74 159/87 Blood Pressure 154/88 [Left] O2 Sat by Pulse 97 97 97 Oximetry 09/04/20 09/04/20 09/04/20 03:00 03:16 04:00 Temperature Pulse Rate 80 89 85 Respiratory 12 16 17 Rate Blood Pressure 163/89 163/89 166/83 Blood Pressure [Left] O2 Sat by Pulse 98 99 98 Oximetry 09/04/20 09/04/20 04:16 04:30 Temperature Pulse Rate 82 81 Respiratory 18 19 Rate Blood Pressure 163/91 159/90 Blood Pressure [Left] O2 Sat by Pulse 99 97 Oximetry ED Medical Decision Making - Lab Data Result diagrams: 09/04/20 03:25 09/04/20 03:25 Laboratory Last Values WBC 9.9 K/mm3 (4.5-11.0) 09/04/20 03:25 RBC 5.10 M/mm3 (3.65-5.03) H 09/04/20 03:25 Hgb 13.2 gm/dl (11.8-15.2) 09/04/20 03:25 Hct 40.8 % (35.5-45.6) 09/04/20 03:25 MCV 80 fl (84-94) L 09/04/20 03:25 MCH 26 pg (28-32) L 09/04/20 03:25 MCHC 33 % (32-34) 09/04/20 03:25 RDW 19.6 % (13.2-15.2) H 09/04/20 03:25 Plt Count 246 K/mm3 (140-440) 09/04/20 03:25 Lymph % (Auto) 9.2 % (13.4-35.0) L 09/04/20 03:25 [place] % (Auto) 9.3 % (0.0-7.3) H 09/04/20 03:25 Eos % (Auto) 0.0 % (0.0-4.3) 09/04/20 03:25 Baso % (Auto) 0.4 % (0.0-1.8) 09/04/20 03:25 Lymph # (Auto) 0.9 K/mm3 (1.2-5.4) L 09/04/20 03:25 [place] # (Auto) 0.9 K/mm3 (0.0-0.8) H 09/04/20 03:25 Eos # (Auto) 0.0 K/mm3 (0.0-0.4) 09/04/20 03:25 Baso # (Auto) 0.0 K/mm3 (0.0-0.1) 09/04/20 03:25 Seg Neutrophils % 81.1 % (40.0-70.0) H 09/04/20 03:25 Seg Neutrophils # 8.0 K/mm3 (1.8-7.7) H 09/04/20 03:25 Sodium 144 mmol/L (137-145) 09/04/20 03:25 Potassium 4.1 mmol/L (3.6-5.0) 09/04/20 03:25 Chloride 103.6 mmol/L (98-107) 09/04/20 03:25 Carbon Dioxide 21 mmol/L (22-30) L 09/04/20 03:25 Anion Gap 24 mmol/L 09/04/20 03:25 BUN 27 mg/dL (9-20) H 09/04/20 03:25 Creatinine 1.6 mg/dL (0.8-1.3) H 09/04/20 03:25 Estimated GFR 52 ml/min 09/04/20 03:25 BUN/Creatinine Ratio 17 % 09/04/20 03:25 Glucose 123 mg/dL (75-100) H 09/04/20 03:25 Calcium 9.7 mg/dL (8.4-10.2) 09/04/20 03:25 Total Bilirubin 1.00 mg/dL (0.1-1.2) 09/04/20 03:25 AST 69 units/L (5-40) H 09/04/20 03:25 ALT 65 units/L (7-56) H 09/04/20 03:25 Alkaline Phosphatase 82 units/L (35-129) 09/04/20 03:25 Total Protein 8.5 g/dL (6.3-8.2) H 09/04/20 03:25 Albumin 4.7 g/dL (3.9-5) 09/04/20 03:25 Albumin/Globulin Ratio 1.2 % 09/04/20 03:25 Plasma/Serum Alcohol < 0.01 % (0-0.07) 09/04/20 03:25 - Medical Decision Making Patient has breakthrough seizure with history of seizure disorder. I initially suspected alcohol withdrawal seizure. However patient is lucid. He has normal vital signs. No significant tremor. He will be discharged home. CBC within normal limits but does have evidence of microcytosis which would be reflective of vitamin deficiency. Chemistry reveals chronic kidney disease as well as elevated AST ALT blood alcohol negative. Patient received Librium in the emergency department prior to discharge. He is stable for discharge home. I have prescribed Librium and Keppra. Critical care attestation.: If time is entered above; I have spent that time in minutes in the direct care of this critically ill patient, excluding procedure time. ED Disposition Clinical Impression: Seizure, Chronic alcoholic liver disease, Recurrent seizures, Alcohol withdrawal seizure, Alcohol dependence Disposition: -01 TO HOME OR SELFCARE Is pt being admited?: No Does the pt Need Aspirin: No Condition: Stable Instructions: Alcohol Withdrawal Syndrome Prescriptions: levETIRAcetam [Keppra TAB] 1,000 mg PO BID 30 Days #60 tab chlordiazePOXIDE [Librium] 502 tab PO Q8H PRN #10 capsule PRN Reason: tremors, anxiety Referrals: PRIMARY CARE, [Primary Care Provider] - 3-5 Days
[2020-09-04 03:47] LABS: Basophils % (Auto) 0.4 % (0.0-1.8); Hematocrit 40.8 % (35.5-45.6); Hemoglobin 13.2 gm/dl (11.8-15.2); Lymphocytes # (Auto) 0.9 K/mm3 (1.2-5.4); Lymphocytes % (Auto) 9.2 % (13.4-35.0); Mean Corpuscular HGB Conc 33 % (32-34); Mean Corpuscular Volume 80 fl (84-94); Monocytes # (Auto) 0.9 K/mm3 (0.0-0.8); Monocytes % (Auto) 9.3 % (0.0-7.3); Platelet Count 246 K/mm3 (140-440); Red Cell Distribution Width 19.6 % (13.2-15.2)
[2020-09-04 04:09] LABS: Albumin 4.7 g/dL (3.9-5); Calcium 9.7 mg/dL (8.4-10.2)
[2020-09-04 07:05] VITALS: BP 166/89
== END 2020-09-04 09:38 | disposition home or self-care (01) ==
LOC: ED 01:19
DX: R56.9 Unspecified convulsions (principal); F10.20 Alcohol dependence, uncomplicated; K70.9 Alcoholic liver disease, unspecified; I10 Essential (primary) hypertension; M19.91 Primary osteoarthritis, unspecified site; J45.909 Unspecified asthma, uncomplicated; Z90.49 Acquired absence of other specified parts of digestive tract; Z98.890 Other specified postprocedural states; Z79.899 Other long term (current) drug therapy
CPT/HCPCS: 36415; 80053; 85025; 96365; 99284; J1953; 80320; G0480